=== PATIENT | female | born 1950 | race Caucasian/White ===

== ENCOUNTER 2017-12-11 10:23 | Inpatient (IN) ==
[2017-12-11] MEDS ORDERED: FentaNYL 100 MCG/2 ML INJECTION IVP ONE (10:24)
[2017-12-11] MEDS ORDERED: MIDAZOLAM 2mg/2ml INJECTION IVP ONE (10:24)
[2017-12-11] MEDS ORDERED: SALINE FLUSH 10ml SYRINGE IV ONE (10:24)
[2017-12-11] MEDS ORDERED: ESMOLOL DRIP 2,500 MG/250 ML BAG IV PRN (10:30)
[2017-12-11 11:00] VITALS: BMI 41.4
[2017-12-11] MEDS: MAGNESIUM SULFATE 1gm PREMIX 1 GM/100 ML BAG IV SCH ×2 (13:37→14:47)
[2017-12-11] MEDS: ENOXAPARIN 120 MG/0.8 ML INJECTION SQ SCH ×2 (13:46→20:10)
[2017-12-11] MEDS ORDERED: DiltiaZEM 25 MG/5 ML INJECTION IVP ONE (14:40)
[2017-12-11] MEDS: DiltiaZEM Drip 125 MG in NS 125 ML IV SCH ×2 (15:20→23:09)
[2017-12-11] MEDS ORDERED: ALBUTEROL 2.5mg/3ml (0.083%) NEB AEROSOL PRN (16:47)
--- NOTE | 2017-12-11 17:21 | Echocardiogram ---
DATE OF PROCEDURE December 11, 2017 This is a two-dimensional echo with spectral Doppler, color-flow and M-mode. It was obtained in a patient with atrial fibrillation. Left atrium is dilated. Left ventricular end-diastolic dimension is normal. Left ventricular wall thickness is increased with asymmetrical septal hypertrophy at 1.6 cm thickness. LV systolic function is at the lower limits of normal with an ejection fraction of about 50%. Right atrium is dilated. Right ventricle is normal. Aortic root dimension is normal. Mitral annulus is calcified. Mitral valve leaflets are normal with mild mitral regurgitation. Aortic valve shows mild fibrocalcific changes with no stenosis. Trace of aortic insufficiency is present. Tricuspid valve shows moderate tricuspid regurgitation with moderate pulmonary hypertension with estimated pulmonary artery systolic pressure of 48. Pulmonary valve shows no pulmonary insufficiency. There is no pericardial effusion. IMPRESSION 1. Technically difficult study. 2. LV function at the lower limits of normal with ejection fraction of about 50 %. However, all rachel were not visualized. 3. Biatrial dilation. 4. Asymmetrical septal hypertrophy. 5. Mitral annulus calcification with mild mitral regurgitation. 6. Aortic sclerosis with trace of aortic insufficiency. 7. Moderate tricuspid regurgitation with moderate pulmonary hypertension with estimated pulmonary artery systolic pressure of 48. MTDD
[2017-12-11] MEDS ORDERED: METOPROLOL 5mg/5ml INJECTION IVP ONE (17:22)
[2017-12-11] MEDS ORDERED: FLUTICASONE NASAL SPRAY 50mcg EA NOSTRIL PRN (18:42)
[2017-12-11] MEDS: ALLOPURINOL 300 MG TABLET PO SCH (20:07)
[2017-12-11] MEDS: INSULIN GLARGINE 100unit/ml INJECTION SQ SCH (20:07)
[2017-12-11] MEDS: AMLODIPINE 10 MG TABLET PO SCH (20:09)
[2017-12-11] MEDS: CYCLOBENZAPRINE 5 MG TABLET PO SCH (20:09)
[2017-12-11] MEDS: TERAZOSIN 5 MG CAPSULE PO SCH (20:10)
[2017-12-12] MEDS: LEVOTHYROXINE 200 MCG TABLET PO SCH (06:21)
[2017-12-12] MEDS: DiltiaZEM Drip 125 MG in NS 125 ML IV SCH (08:24)
[2017-12-12] MEDS ORDERED: NS IV SCH (09:30)
[2017-12-12] MEDS ORDERED: POTASSIUM CHLORIDE IV SCH (09:30)
[2017-12-12] MEDS ORDERED: LIDOCAINE IV SCH (09:30)
[2017-12-12] MEDS: ENOXAPARIN 120 MG/0.8 ML INJECTION SQ SCH (10:14)
--- NOTE | 2017-12-12 10:32 | Consult Note ---
Consult Information - Data of Consult Consult date: 12/12/17 Requesting Physician: Kenny Alvarez MD Primary Care Provider: DO Jose Antonio DO Family Provider: Jose Thayer DO - Consult Narrative Reason for consult: abnormal TSH and diabetes management History of present illness: Amaris is a 67-year-old female who was admitted yesterday under Dr. Alvarez for new onset of a-flutter. She gives a history of having a syncopal episode in the bathroom approximately 2 weeks ago. She admits she has not been taking her medications routinely over the last month or 2 as she got laid off from her job and finances are a concern. She saw her PCP on December 06 and December 10 to follow-up the syncopal episode. Her CT head was negative. EKG revealed a flutter , thus she was sent for admission. Labs reviewed from December 06, and revealed no significant abnormalities other than borderline creatinine, elevated glucose and a low magnesium at 1.4. In review of her TSH, in Jul 2017 - 0.72, December 06 - 4.46, December 10 - 2.71, Dec 11 -0.08. She reports not taking her thyroid medicine regularly for the past month or 2, but resumed it approximately a week ago. She has had no fever other than associated with sinusitis and otitis media a month ago, which has resolved. She has diarrhea "occasionally" but nothing consistent. She reports a history of usually being stable with her TSH levels. Past Medical History Medical History Atrial flutter Depression Asthma Hypothyroidism Hyperlipidemia Diabetes-chronic insulin therapy HTN (hypertension) Gout Glaucoma left eye COPD Sleep apnea-BiPAP with 2.5 L O2 GERD Surgical History: EYE SURGERY FOR GLAUCOMA: 11/2015, 02/2016, tonsillectomy and adenoidectomy-H6, cholecystectomy, right Achilles tendon repair, R tympanoplasty Family History: Family History Mother Lupus Diabetes Heart disease Father Heart disease Skin cancer Dementia Brother Skin cancer Afib H/O heart bypass surgery Maternal Grandmother Heart disease Maternal Grandfather Cancer Paternal Grandmother Dementia Paternal Grandfather Stroke Family History Updates: Reviewed - Social History Smoking status: Never smoker Substance use type: does not use Alcohol intake frequency: does not drink Household members: family (Brother) Current occupational status: retired (was laid off from her job of 42 years in August 2017) Current residence: Apartment/Private Home Social history: PCP-Dr. Thayer [place] Weaver-Dr. Pham (establishing with him next month) Review of Systems All systems PM: 10-point ROS was reviewed, no additional remarkable complaints except - Constitutional Constitutional: Present: fatigue - Cardiovascular Cardiovascular: Present: palpitations (at times) Medications Home Medications Medication Instructions Recorded Confirmed Type Albuterol Sulfate 2.5 mg AEROSOL PRN PRN 12/12/17 12/12/17 History Allopurinol [Zyloprim] 300 mg PO DAILY 12/12/17 12/12/17 History Amlodipine [Norvasc] 10 mg PO DAILY 12/12/17 12/12/17 History Chlorthalidone 25 mg PO DAILY 12/12/17 12/12/17 History Cyclobenzaprine [Flexeril] 7.5 mg PO TID 12/12/17 12/12/17 History EPINEPHrine Pen [Epipen] 0.3 mg IM O PRN 12/12/17 12/12/17 History FLUoxetine [Prozac] 20 mg PO DAILY 12/12/17 12/12/17 History Fluticasone Nasal [place] [Flonase] 1 spray EA NOSTRIL BID PRN 12/12/17 12/12/17 History Insulin Aspart [NovoLOG] 10 - 30 unit SQ TIDWM 12/12/17 12/12/17 History Insulin Degludec [Tresiba 120 unit SQ HS 12/12/17 12/12/17 History Flextouch U-200] Levothyroxine Sodium 200 mcg PO DAILY 12/12/17 12/12/17 History Meloxicam [Meloxicam] 7.5 mg PO QAM 12/12/17 12/12/17 History Metformin HCl [Metformin HCl ER] 1,000 mg PO BID 12/12/17 12/12/17 History Metoprolol Tartrate [Lopressor] 25 mg PO BIDWM 12/12/17 12/12/17 History Montelukast [Singulair] 10 mg PO DAILY 12/12/17 12/12/17 History Pravastatin [Pravachol] 40 mg PO DAILY 12/12/17 12/12/17 History Ropinirole [Requip] 2 mg PO DAILY 12/12/17 12/12/17 History Terazosin HCl 10 mg PO DAILY 12/12/17 12/12/17 History Allergies Allergy/AdvReac Type Severity Reaction Status Date / Time Penicillins Allergy Severe anaphylaxis Verified 12/12/17 11:05 ciprofloxacin [From Cipro] Allergy Unknown Verified 12/10/17 10:19 labetalol Allergy Unknown Verified 12/10/17 10:19 levofloxacin [From Levaquin] Allergy Unknown Verified 12/10/17 10:19 lisinopril Allergy Unknown Verified 12/10/17 10:19 tramadol [From Ultram] Allergy Unknown Verified 12/10/17 10:19 Exam Vital Signs: Temperature 97.6 F 12/12/17 10:00 Pulse Rate 122 H 12/12/17 10:00 Respiratory Rate 20 12/12/17 10:00 Blood Pressure 105/51 12/12/17 10:00 Pulse Oximetry 98 12/12/17 10:00 Height/Weight/BMI: Height 1.69 m Weight 93.5 kg Body Mass Index 41.4 - Constitutional Present: no acute distress, well nourished, well developed, obese - Routine HEENT Exam Head: Present: normocephalic, atraumatic - Routine Neck Exam Present: supple. Absent: lymphadenopathy - Routine Respiratory Exam Present: CTA bilaterally. Absent: wheezes - Routine Cardiovascular Exam Present: no murmur, tachycardia Comments: Sounds are regular - Routine Abdominal Exam Present: soft, normoactive bowel sounds. Absent: tenderness, distended - Routine Extremities Exam Present: no edema, normal capillary refill - Routine Skin Exam Present: dry, warm Comments: Some areas of scabbing on the right knee and lower leg and the left ankle from scratching - Routine Neurological Exam Present: alert, oriented X3, CN II-XII intact, normal speech - Routine Psychiatric Exam Present: normal affect, cooperative Results - Labs CBC & Chem 7: 12/12/17 04:20 12/12/17 04:20 Labs: Laboratory Tests 12/06/17 12/10/17 12/11/17 14:21 11:16 11:13 TSH 4.46 2.71 0.08 L - Echocardiogram Echocardiogram: Date of Exam: 12/11/17 Type of Exam(s): US echo doppler complete DATE OF PROCEDURE December 11, 2017 This is a two-dimensional echo with spectral Doppler, color-flow and M-mode. It was obtained in a patient with atrial fibrillation. Left atrium is dilated. Left ventricular end-diastolic dimension is normal. Left ventricular wall thickness is increased with asymmetrical septal hypertrophy at 1.6 cm thickness. LV systolic function is at the lower limits of normal with an ejection fraction of about 50%. Right atrium is dilated. Right ventricle is normal. Aortic root dimension is normal. Mitral annulus is calcified. Mitral valve leaflets are normal with mild mitral regurgitation. Aortic valve shows mild fibrocalcific changes with no stenosis. Trace of aortic insufficiency is present. Tricuspid valve shows moderate tricuspid regurgitation with moderate pulmonary hypertension with estimated pulmonary artery systolic pressure of 48. Pulmonary valve shows no pulmonary insufficiency. There is no pericardial effusion. IMPRESSION 1. Technically difficult study. 2. LV function at the lower limits of normal with ejection fraction of about 50 %. However, all rachel were not visualized. 3. Biatrial dilation. 4. Asymmetrical septal hypertrophy. 5. Mitral annulus calcification with mild mitral regurgitation. 6. Aortic sclerosis with trace of aortic insufficiency. 7. Moderate tricuspid regurgitation with moderate pulmonary hypertension with estimated pulmonary artery systolic pressure of 50. - ECG Data Tracing #1 Atrial flutter with rate of 129 Assessment and Plan (1) Atrial flutter Current visit: Yes Status: Acute (2) Hypothyroidism Current visit: No Status: Chronic (3) Hyperlipidemia Current visit: No Status: Chronic (4) Diabetes Current visit: No Status: Chronic (5) HTN (hypertension) Current visit: No Status: Chronic Assessment and Plan: Assessment Atrial flutter Hypomagnesemia - present on admission Hypokalemia - not present on admission Depression Asthma Hypothyroidism Hyperlipidemia Diabetes-metformin and insulin (A1c 8.1%) HTN (hypertension) Gout Glaucoma left eye COPD Sleep apnea-BiPAP with 2.5 L O2 GERD Plan Currently NPO for upcoming ALTA this afternoon. Potassium and magnesium are being replaced per cardiology team. Given her two normal TSH results within the week (both performed at [facility] lab), suspect the abnormal TSH drawn yesterday is a lab error. Other than her tachycardia, no symptoms consistent with thyrotoxicosis. Recommend outpatient follow-up with her PCP. Her home diabetic meds include metformin 500 mg 2 pills twice a day and Novolin R 30-40 units before meals and Tresiba pen 120U at hs. While hospitalized, she has been receiving Lantus 120 units at at bedtime and NovoLog 10-30 units subcutaneous before meals. Blood sugars have been stable since admission, will continue to follow and adjust as needed. (Will adjust order for metformin--pt states she was recently increased to 1000mg BID. Taking 2 - 500mg pills BID.) Hospitalist team will continue to follow patient's blood sugars throughout her stay. Thank you for the consult. Resuscitation Status: Full Code - Physician Narrative Physician: Hamilton Smith MD Narrative: Date: 12/12/17 Time: 1515 Have independently interviewed and examined pt. Chart reviewed. Case discussed with my PA. Above care plan developed with my supervision; agree with above. Presents secondary to atrial flutter with RVR. Consult initiated for her diabetes and hypothyroidism. Had TSH checked on 12/06 with reading of 4.96 and repeated on 12/10 with reading of 2.71 (both done at [facility]). Recheck this admission decreased at 0.08. Patient reports no change in her thyroid medication for ' years.' Did have insurance difficulty last fall (changed insurances) and was without medications for about 6 week. Has been faithful in taking thyroid medication. Adherent with medications. Does note chronic dizziness-worse with positional change. Had fall at home prompting evaluation in Dr Thayer's office on 12/10/17 where HR was found to be elevated. Referred to Dr Alvarez who did find aflutter with RVR - placed in OBS yesterday for treatment. Lungs: clear CV: regular AB: soft obese NT/ND MSE: awake alert appropriate Plan: Would continue with current dose of thyroid medication - uncertain why the significant discrepancy between our reading and [facility]. Would recommend rechecking TSH in about 4-6 weeks. Will add Free T3 and Free T4 for completeness. Continue with home diabetic medications, monitoring sugars. Cardiac care as per Dr Alvarez. Hospital Course Summary Disclaimer: The visit summary below is not to be considered part of the above Progress Note. Hospital Course: 12/12/17-hospitalist consultation Currently NPO for upcoming ALTA this afternoon. Potassium and magnesium are being replaced per cardiology team. Given her two normal TSH results within the week (both performed at [facility] lab), suspect the abnormal TSH drawn yesterday is a lab error. Other than her tachycardia, no symptoms consistent with thyrotoxicosis. Recommend outpatient follow-up with her PCP. Her home diabetic meds include metformin 500 mg 2 pills twice a day and Novolin R 30-40 units before meals and Tresiba pen 120U at hs. While hospitalized, she has been receiving Lantus 120 units at at bedtime and NovoLog 10-30 units subcutaneous before meals. Blood sugars have been stable since admission, will continue to follow and adjust as needed. (Will adjust order for metformin--pt states she was recently increased to 1000mg BID. Taking 2 - 500mg pills BID.) Hospitalist team will continue to follow patient's blood sugars throughout her stay. Thank you for the consult. Addendum entered and electronically signed by SAMIR Kat 12/12/17 11:19 : Patient has large umbilical hernia with erythema/yeast appearance. Order for Nystatin powder given.
[2017-12-12] MEDS ORDERED: SALINE FLUSH 10ml SYRINGE ONE (11:57)
[2017-12-12] MEDS ORDERED: FLECAINIDE 100 MG TABLET PO ONE (13:34)
[2017-12-12] MEDS: INSULIN ASPART 100unit/ml INJECTION SQ SCH ×3 (14:49→17:44)
[2017-12-12] MEDS: CYCLOBENZAPRINE 5 MG TABLET PO SCH ×3 (14:51→22:21)
[2017-12-12] MEDS: FLUoxetine 20 MG CAPSULE PO SCH (15:29)
[2017-12-12] MEDS: ROPINIROLE 2 MG TABLET PO SCH (15:29)
--- NOTE | 2017-12-12 15:31 | Transesophageal Echocardiogram ---
DATE OF PROCEDURE December 12, 2017 The patient is a pleasant 67-year-old gentleman with unknown duration of atrial fibrillation who was admitted with atrial fibrillation with rapid ventricular rate and was admitted for rate control and cardioversion. Informed consent was obtained after explaining the procedure and the potential risks to the patient who agreed to proceed with the procedure. PROCEDURE 1. Transesophageal echocardiogram. 2. DC cardioversion of atrial fibrillation to sinus rhythm. TECHNIQUE Conscious sedation was performed using Versed and fentanyl. Cetacaine spray was used for pharyngeal anesthesia. Probe was advanced into the esophagus and stomach and images were obtained in multiple planes. Left atrium is dilated. Left ventricular end-diastolic dimension is normal. Left ventricular wall thickness is normal. LV systolic function is normal with ejection fraction of about 65%. Right atrium is normal. Right ventricle is normal. Mitral valve is morphologically normal with mild mitral regurgitation. Aortic valve is a trileaflet structure with no stenosis. Mild aortic insufficiency is present. Tricuspid valve is morphologically normal with mild tricuspid regurgitation. Pulmonary valve is morphologically normal with mild pulmonary insufficiency. There is no thrombus in left atrium, left atrial appendage or left ventricle. Agitated saline was injected which showed no evidence of [id number] shunt. Descending thoracic aorta shows mild atherosclerosis. IMPRESSION 1. No intracardiac thrombus or mass. 2. Left atrial dilation. 3. Normal LV systolic function with ejection fraction of about 65%. 4. Mild mitral regurgitation. 5. Mild aortic insufficiency. 6. Mild tricuspid regurgitation. 7. Mild pulmonary insufficiency. 9. Mild atherosclerosis of the descending thoracic aorta. After reviewing the images we decided to proceed with cardioversion. Anterior- posterior Zoll pads were applied. 360 joules of energy were delivered in a synchronized manner and patient converted from atrial fibrillation to sinus rhythm. She tolerated the procedure well with no complications. IMPRESSION Successful DC cardioversion of atrial fibrillation to sinus rhythm. Will continue anticoagulation and start her on antiarrhythmics to maintain sinus. [facility]
[2017-12-12] MEDS: CHLORTHALIDONE 25 MG TABLET PO SCH (15:32)
[2017-12-12] MEDS: AMLODIPINE 10 MG TABLET PO SCH (15:32)
[2017-12-12] MEDS: MELOXICAM 7.5 MG TABLET PO SCH (15:33)
[2017-12-12] MEDS: MONTELUKAST 10 MG TABLET PO SCH (15:33)
[2017-12-12] MEDS: ALLOPURINOL 300 MG TABLET PO SCH (15:34)
[2017-12-12] MEDS: PROMETHAZINE 25 MG TABLET PO PRN ×2 (17:42→23:04)
[2017-12-12] MEDS: TERAZOSIN 5 MG CAPSULE PO SCH (22:12)
[2017-12-12] MEDS: PRAVASTATIN 40 MG TABLET PO SCH (22:12)
[2017-12-12] MEDS: FLECAINIDE 50 MG TABLET PO SCH (22:13)
[2017-12-12] MEDS: INSULIN GLARGINE 100unit/ml INJECTION SQ SCH (22:22)
[2017-12-12] MEDS: APIXABAN 5 MG TABLET PO SCH (23:03)
[2017-12-13] MEDS: LEVOTHYROXINE 200 MCG TABLET PO SCH (06:34)
[2017-12-13] MEDS: INSULIN ASPART 100unit/ml INJECTION SQ SCH ×3 (09:16→18:37)
[2017-12-13] MEDS: ALLOPURINOL 300 MG TABLET PO SCH (09:19)
[2017-12-13] MEDS: APIXABAN 5 MG TABLET PO SCH ×2 (09:19→21:10)
[2017-12-13] MEDS: FLECAINIDE 50 MG TABLET PO SCH ×2 (09:19→21:11)
[2017-12-13] MEDS: ROPINIROLE 2 MG TABLET PO SCH (09:19)
[2017-12-13] MEDS: CYCLOBENZAPRINE 5 MG TABLET PO SCH ×3 (09:19→21:10)
[2017-12-13] MEDS: FLUoxetine 20 MG CAPSULE PO SCH (09:20)
[2017-12-13] MEDS: AMLODIPINE 10 MG TABLET PO SCH (09:28)
[2017-12-13] MEDS: CHLORTHALIDONE 25 MG TABLET PO SCH (09:28)
[2017-12-13] MEDS: MELOXICAM 7.5 MG TABLET PO SCH (09:28)
[2017-12-13] MEDS: MONTELUKAST 10 MG TABLET PO SCH (09:29)
--- NOTE | 2017-12-13 09:56 | Progress Note ---
- Date 12/13/17 Subjective: Patient seen today sitting on the edge of her bed. She slept well. Had some nausea last night so didn't eat supper. No nausea this am. NO CP or SOA. She had her ALTA and successful cardioversion yesterday afternoon. Remains in NSR with heart rate averaging 70's. Overall, she currently has no complaints. Objective Vital signs: Temperature 96.3 F L 12/13/17 07:57 Pulse Rate 72 12/13/17 07:57 Respiratory Rate 24 12/13/17 07:57 Blood Pressure 124/63 12/13/17 07:57 Pulse Oximetry 95 12/13/17 07:57 Height/Weight/BMI: Height 1.69 m Weight 93.5 kg Body Mass Index 41.4 - Constitutional Present: no acute distress, well nourished, well developed, obese - Routine HEENT Exam Head: Present: normocephalic, atraumatic - Routine Respiratory Exam Present: CTA bilaterally. Absent: wheezes - Routine Cardiovascular Exam Present: RRR, murmur (slight) - Routine Abdominal Exam Present: soft, non distended, non tender - Routine Extremities Exam Present: no edema, normal capillary refill - Routine Skin Exam Present: dry, warm - Routine Neurological Exam Present: alert, oriented X3 - Routine Lymphatic Exam Lymphatic: Absent: adenopathy - Routine Psychiatric Exam Present: normal affect, cooperative Results - Labs CBC & Chem 7: 12/13/17 04:22 12/13/17 04:22 Assessment and Plan (1) Diabetes Current visit: No Status: Chronic (2) Hypothyroidism Current visit: No Status: Chronic (3) HTN (hypertension) Current visit: No Status: Chronic (4) Hyperlipidemia Current visit: No Status: Chronic (5) Atrial flutter Current visit: Yes Status: Acute Assessment and Plan: Assessment Atrial flutter - with conversion to NSR following electrical cardioversion Hypomagnesemia - present on admission - resolved Hypokalemia - not present on admission Depression Asthma Hypothyroidism Hyperlipidemia Diabetes-metformin and insulin (A1c 8.1%) HTN (hypertension) Gout Glaucoma left eye COPD Sleep apnea-BiPAP with 2.5 L O2 GERD Plan Neg ALTA and successful electrical cardioversion yesterday. Doing well. Potassium remains low at 3.0 despite receiving 60mEq TID yesterday. Replace with 40mEq now and another dose at lunch. Blood sugars are stable. Continue current regimen. Dietary consult as she would like information on sodium, portion size, etc. PT/OT consult for strengthening. DVT Prophylaxis: Eliquis Resuscitation Status: Full Code - Time spent with patient Time with patient PN: 25 minutes - Physician Narrative Physician: Hamilton Smith MD Narrative: Date: 12/13/17 Time: 1345 Have independently interviewed and examined patient. Chart reviewed. Cased discussed with Cardiology and my PA. Care plan developed with my supervision; agree with above. Doing well today. Breathing well-not congested or SOA. No chest pressure or pain. Did have episode of dizziness yesterday. Eating better today-some nausea yesterday. Lungs: decreased, no crackles/wheezes/rhonchi. Good air movement. CV: regular MSE: awake alert appropriate Plan: Continue with current DM and thyroid medications. Free T3 and T4 pending. Encourage ambulation - PT/OT consulted. Dietary to see. Replace potassium. Monitor hemoglobin - need to be mindful of potential GI blood loss with Eliquis. Hospital Course Summary Disclaimer: The visit summary below is not to be considered part of the above Progress Note. Hospital Course: 12/12/17-hospitalist consultation Currently NPO for upcoming ALTA this afternoon. Potassium and magnesium are being replaced per cardiology team. Given her two normal TSH results within the week (both performed at [facility] lab), suspect the abnormal TSH drawn yesterday is a lab error. Other than her tachycardia, no symptoms consistent with thyrotoxicosis. Recommend outpatient follow-up with her PCP. Her home diabetic meds include metformin 500 mg 2 pills twice a day and Novolin R 30-40 units before meals and Tresiba pen 120U at hs. While hospitalized, she has been receiving Lantus 120 units at at bedtime and NovoLog 10-30 units subcutaneous before meals. Blood sugars have been stable since admission, will continue to follow and adjust as needed. (Will adjust order for metformin--pt states she was recently increased to 1000mg BID. Taking 2 - 500mg pills BID.) 12/13/17 Neg ALTA and successful electrical cardioversion yesterday. Doing well. Potassium remains low at 3.0 despite receiving 60mEq TID yesterday. Replace with 40mEq now and another dose at lunch. Blood sugars are stable. Continue current regimen. Dietary consult as she would like information on sodium, portion size, etc. PT/OT consult for strengthening.
[2017-12-13] MEDS ORDERED: FALL RISK - PHARMACY CONSULT XX ONE (10:09)
--- NOTE | 2017-12-13 10:39 | Cardiology Progress Note ---
<Cookie Thomas - Last Filed: 12/13/17 16:23> Subjective Principal diagnosis: atrial flutter Interval history: Amaris is seen in follow up for atrial flutter. She underwent successful OLIVIA/ DCCV yesterday and started on antiarrhythmic therapy on Flecainide. She received IV potassium due to being NPO for afternoon procedure. She reports some nausea last evening and dizziness when she gets up to quickly. She denies chest pain, pressure or palpitations. Exam Vital signs: Temperature 96.3 F L 12/13/17 07:57 Pulse Rate 72 12/13/17 07:57 Respiratory Rate 24 12/13/17 07:57 Blood Pressure 124/63 12/13/17 07:57 Pulse Oximetry 95 12/13/17 07:57 - Constitutional no acute distress, morbidly obese, cooperative - Routine HEENT Exam Head: Present: normocephalic ENT: Present: mucous membranes moist - Routine Neck Exam Absent: JVD, carotid bruit - Routine Chest/Breast/Axilla Exam Chest wall: Absent: tenderness - Routine Respiratory Exam Present: CTA bilaterally. Absent: rales, wheezes - Routine Cardiovascular Exam Present: no murmur. Absent: JVD - Routine Abdominal Exam Present: soft, normoactive bowel sounds - Routine Extremities Exam Present: no edema - Routine Skin Exam Present: intact, dry, warm - Routine Neurological Exam Present: alert, oriented X3 - Routine Psychiatric Exam Present: normal affect, normal thought process - Additional findings Additional findings: Albuterol Sulfate (Proventil Neb (0.083%)) 2.5 mg AEROSOL RTQID PRN Allopurinol (Zyloprim) 300 mg PO DAILY [facility] Last Admin: 12/13/17 09:19 Dose: 300 mg Amlodipine Besylate (Norvasc) 10 mg PO DAILY [facility] Last Admin: 12/13/17 09:28 Dose: 10 mg Apixaban (Eliquis) 5 mg PO BID [facility] Last Admin: 12/13/17 09:19 Dose: 5 mg Chlorthalidone (Hygroton) 25 mg PO WB [facility] Last Admin: 12/13/17 09:28 Dose: 25 mg Cyclobenzaprine HCl (Flexeril) 7.5 mg PO TID [facility] Last Admin: 12/13/17 09:19 Dose: 7.5 mg Flecainide Acetate (Tambocor) 50 mg PO BID [facility] Last Admin: 12/13/17 09:19 Dose: 50 mg Fluoxetine HCl (Prozac) 20 mg PO DAILY [facility] Last Admin: 12/13/17 09:20 Dose: 20 mg Fluticasone Propionate (Flonase) 1 spray EA NOSTRIL BID PRN PRN Reason: allergy symptoms Esmolol HCl (Brevibloc Drip) 2,500 mg in 250 mls @ 35.49 mls/hr IV .Q7H3M PRN; 50 MCG/KG/MIN PRN Reason: Protocol Last Titration: 12/11/17 15:20 Dose: 0 mcg/kg/min, 0 mls/hr Insulin Aspart (Novolog) 10 - 30 unit SQ 0730,1130,1700 [facility] Last Admin: 12/13/17 09:16 Dose: 10 unit Insulin Glargine (Lantus) 120 unit SQ HS [facility] Last Admin: 12/12/17 22:22 Dose: 120 unit Levothyroxine Sodium (Synthroid) 200 mcg PO ACB [facility] Last Admin: 12/13/17 06:34 Dose: 200 mcg Meloxicam (Mobic) 7.5 mg PO WB [facility] Last Admin: 12/13/17 09:28 Dose: 7.5 mg Metformin HCl (Glucophage Xr) 1,000 mg PO BIDWM [facility] Last Admin: 12/13/17 09:18 Dose: 1,000 mg Metoprolol Tartrate (Lopressor) 25 mg PO BIDBS [facility] Last Admin: 12/13/17 09:18 Dose: 25 mg Montelukast Sodium (Singulair) 10 mg PO DAILY [facility] Last Admin: 12/13/17 09:29 Dose: 10 mg Nystatin (Mycostatin) 1 applic TP TID [facility] Last Admin: 12/13/17 09:29 Dose: 1 applic Potassium Chloride (K-Dur 20 Meq Tablet) 40 meq PO O ONE Stop: 12/13/17 12:01 Pravastatin Sodium (Pravachol) 40 mg PO HS [facility] Last Admin: 12/12/17 22:12 Dose: 40 mg Promethazine HCl (Phenergan Tab) 25 mg PO Q6HR PRN Last Admin: 12/12/17 23:04 Dose: 25 mg Ropinirole HCl (Requip) 2 mg PO WB [facility] Last Admin: 12/13/17 09:19 Dose: 2 mg Terazosin HCl (Hytrin) 10 mg PO HS [facility] Last Admin: 12/12/17 22:12 Dose: 10 mg Results 12/13/17 04:22 12/13/17 04:22 CBC 12/13/17 Range/Units 04:22 WBC 6.9 (4.5-11.0) T/MM3 RBC 3.87 L (4.00-5.20) M/MM3 Hgb 11.5 L D (12-16) GM/DL Hct 34.4 L D (36-46) % Plt Count 222 (130-400) T/MM3 Comprehensive Metabolic Panel 12/13/17 Range/Units 04:22 Sodium 139 (134-144) MEQ/L Potassium 3.0 L (3.6-5) MEQ/L Chloride 103 (98-107) MEQ/L Carbon Dioxide 27 (22-30) MEQ/L BUN 30.0 H (7-17) MG/DL Creatinine 1.0 D (0.7-1.2) MG/DL Glucose 126 H (65-110) MG/DL Calcium 8.6 (8.4-10.2) MG/DL Intake and Output 12/12/17 12/13/17 12/13/17 22:59 06:59 14:59 Intake Total 700 / 700 20 / 20 Balance 700 / 700 20 / 20 Intake: Oral 700 / 700 20 / 20 Other: Urine Color Yellow Urine Odor Strong Size of Bowel Movement Small # Voids 1 # Bowel Movements 1 - Imaging and Cardiology Imaging & Cardiology Narrative: Date of Exam: 12/12/17 Type of Exam(s): US olivia w/ doppler DATE OF PROCEDURE December 12, 2017 The patient is a pleasant 67-year-old gentleman with unknown duration of atrial fibrillation who was admitted with atrial fibrillation with rapid ventricular rate and was admitted for rate control and cardioversion. Informed consent was obtained after explaining the procedure and the potential risks to the patient who agreed to proceed with the procedure. PROCEDURE 1. Transesophageal echocardiogram. 2. DC cardioversion of atrial fibrillation to sinus rhythm. TECHNIQUE Conscious sedation was performed using Versed and fentanyl. Cetacaine spray was used for pharyngeal anesthesia. Probe was advanced into the esophagus and stomach and images were obtained in multiple planes. Left atrium is dilated. Left ventricular end-diastolic dimension is normal. Left ventricular wall thickness is normal. LV systolic function is normal with ejection fraction of about 65%. Right atrium is normal. Right ventricle is normal. Mitral valve is morphologically normal with mild mitral regurgitation. Aortic valve is a trileaflet structure with no stenosis. Mild aortic insufficiency is present. Tricuspid valve is morphologically normal with mild tricuspid regurgitation. Pulmonary valve is morphologically normal with mild pulmonary insufficiency. There is no thrombus in left atrium, left atrial appendage or left ventricle. Agitated saline was injected which showed no evidence of [id number] shunt. Descending thoracic aorta shows mild atherosclerosis. IMPRESSION 1. No intracardiac thrombus or mass. 2. Left atrial dilation. 3. Normal LV systolic function with ejection fraction of about 65%. 4. Mild mitral regurgitation. 5. Mild aortic insufficiency. 6. Mild tricuspid regurgitation. 7. Mild pulmonary insufficiency. 9. Mild atherosclerosis of the descending thoracic aorta. After reviewing the images we decided to proceed with cardioversion. Anterior- posterior Zoll pads were applied. 360 joules of energy were delivered in a synchronized manner and patient converted from atrial fibrillation to sinus rhythm. She tolerated the procedure well with no complications. IMPRESSION Successful DC cardioversion of atrial fibrillation to sinus rhythm. Will continue anticoagulation and start her on antiarrhythmics to maintain sinus. Date of Exam: 12/11/17 Type of Exam(s): US echo doppler complete DATE OF PROCEDURE December 11, 2017 This is a two-dimensional echo with spectral Doppler, color-flow and M-mode. It was obtained in a patient with atrial fibrillation. Left atrium is dilated. Left ventricular end-diastolic dimension is normal. Left ventricular wall thickness is increased with asymmetrical septal hypertrophy at 1.6 cm thickness. LV systolic function is at the lower limits of normal with an ejection fraction of about 50%. Right atrium is dilated. Right ventricle is normal. Aortic root dimension is normal. Mitral annulus is calcified. Mitral valve leaflets are normal with mild mitral regurgitation. Aortic valve shows mild fibrocalcific changes with no stenosis. Trace of aortic insufficiency is present. Tricuspid valve shows moderate tricuspid regurgitation with moderate pulmonary hypertension with estimated pulmonary artery systolic pressure of 48. Pulmonary valve shows no pulmonary insufficiency. There is no pericardial effusion. IMPRESSION 1. Technically difficult study. 2. LV function at the lower limits of normal with ejection fraction of about 50 %. However, all rachel were not visualized. 3. Biatrial dilation. 4. Asymmetrical septal hypertrophy. 5. Mitral annulus calcification with mild mitral regurgitation. 6. Aortic sclerosis with trace of aortic insufficiency. 7. Moderate tricuspid regurgitation with moderate pulmonary hypertension with estimated pulmonary artery systolic pressure of 50. Assessment and Plan - Assessment and Plan (1) HTN (hypertension) Status: Chronic Continue home Amlodipine, Metoprolol and Chlorthalidone (2) Hyperlipidemia Status: Chronic Continue home Pravastatin (3) Hypothyroidism Status: Chronic Appreciate Hospitalist assistance. Thank you Dr. East (4) Diabetes Status: Chronic Appreciate Hospitalist assistance. Thank you Dr. East (5) Asthma Status: Chronic Appreciate Hospitalist assistance. Thank you Dr. East (6) Atrial flutter Status: Acute New onset - underwent successful OLIVIA/ DCCV yesterday - antiarrhythmic therapy on Flecainide. - Monitor cardiac telemetry for ventricular arrhythmias - Monitor Magnesium and Potassium - Repeat EKG to measure QT - Assessment and Plan New onset A Flutter - underwent successful OLIVIA/ DCCV yesterday - antiarrhythmic therapy on Flecainide. - Monitor cardiac telemetry for ventricular arrhythmias - Monitor Magnesium and Potassium (3.0 today) replaced by hospitalist - Repeat EKG to measure QT - Prontonix 40mg po BID ac meals (hgb 11.5 today from 13.1) Hospital Course Summary Disclaimer: The visit summary below is not to be considered part of the above Progress Note. Hospital Course: 12/12/17-hospitalist consultation Currently NPO for upcoming OLIVIA this afternoon. Potassium and magnesium are being replaced per cardiology team. Given her two normal TSH results within the week (both performed at [facility] lab), suspect the abnormal TSH drawn yesterday is a lab error. Other than her tachycardia, no symptoms consistent with thyrotoxicosis. Recommend outpatient follow-up with her PCP. Her home diabetic meds include metformin 500 mg 2 pills twice a day and Novolin R 30-40 units before meals and Tresiba pen 120U at hs. While hospitalized, she has been receiving Lantus 120 units at at bedtime and NovoLog 10-30 units subcutaneous before meals. Blood sugars have been stable since admission, will continue to follow and adjust as needed. (Will adjust order for metformin--pt states she was recently increased to 1000mg BID. Taking 2 - 500mg pills BID.) 12/13/17 Neg OLIVIA and successful electrical cardioversion yesterday. Doing well. Potassium remains low at 3.0 despite receiving 60mEq TID yesterday. Replace with 40mEq now and another dose at lunch. Blood sugars are stable. Continue current regimen. Dietary consult as she would like information on sodium, portion size, etc. PT/OT consult for strengthening. <Kenny Alvarez - Last Filed: 12/18/17 07:54> Exam Vital signs: Temperature 96.2 F L 12/14/17 08:00 Pulse Rate 76 12/14/17 16:00 Respiratory Rate 18 12/14/17 08:00 Blood Pressure 143/67 H 12/14/17 12:00 Pulse Oximetry 96 12/14/17 12:00 Results 12/14/17 04:20 12/14/17 04:20 Assessment and Plan - Assessment and Plan (1) HTN (hypertension) Status: Chronic (2) Diabetes Status: Chronic (3) Hyperlipidemia Status: Chronic (4) Hypothyroidism Status: Chronic (5) Asthma Status: Chronic (6) Atrial flutter Status: Acute - Attestation Attestation Narrative: 12/18/17 07:54 Recommendation After examining the patient I agree with the above assessment. I am involved in the formulation of the patient's plan of care. Hospital Course Summary Disclaimer: The visit summary below is not to be considered part of the above Progress Note.
[2017-12-13] MEDS: PANTOPRAZOLE 40 MG TABLET PO SCH (16:52)
[2017-12-13] MEDS ORDERED: INSULIN GLARGINE 100unit/ml INJECTION SQ ONE (21:00)
[2017-12-13] MEDS: INSULIN GLARGINE 100unit/ml INJECTION SQ SCH (21:10)
[2017-12-13] MEDS: PRAVASTATIN 40 MG TABLET PO SCH (21:11)
[2017-12-13] MEDS: TERAZOSIN 5 MG CAPSULE PO SCH (21:11)
[2017-12-14] MEDS: PANTOPRAZOLE 40 MG TABLET PO SCH ×2 (06:29→17:43)
[2017-12-14] MEDS: LEVOTHYROXINE 200 MCG TABLET PO SCH (06:30)
[2017-12-14] MEDS: INSULIN ASPART 100unit/ml INJECTION SQ SCH ×2 (08:23→11:52)
[2017-12-14 08:55] VITALS: RESP 18; TEMP 96.2
[2017-12-14] MEDS: ALLOPURINOL 300 MG TABLET PO SCH (08:56)
[2017-12-14] MEDS: APIXABAN 5 MG TABLET PO SCH (08:56)
[2017-12-14] MEDS: FLUoxetine 20 MG CAPSULE PO SCH (08:56)
[2017-12-14] MEDS: AMLODIPINE 10 MG TABLET PO SCH (08:56)
[2017-12-14] MEDS: MELOXICAM 7.5 MG TABLET PO SCH (08:57)
[2017-12-14] MEDS: ROPINIROLE 2 MG TABLET PO SCH (08:57)
[2017-12-14] MEDS: FLECAINIDE 50 MG TABLET PO SCH (08:57)
[2017-12-14] MEDS: CHLORTHALIDONE 25 MG TABLET PO SCH (08:57)
[2017-12-14] MEDS: CYCLOBENZAPRINE 5 MG TABLET PO SCH ×2 (08:57→15:40)
[2017-12-14] MEDS: MONTELUKAST 10 MG TABLET PO SCH (08:58)
[2017-12-14] MEDS: PROMETHAZINE 25 MG TABLET PO PRN (10:10)
--- NOTE | 2017-12-14 11:48 | Progress Note ---
- Date 12/14/17 Subjective: Amaris is seen today in follow up for her recent a-flutter. She underwent a ALTA with cardioversion on 12/11/17 which was successful [address] Dr[address] Alvarez. She complains today of nausea and increased dizziness with eating. She reports that it feels like the food is just sitting in her stomach. She denies any fevers, chills, chest pain, shortness of breath, abdominal pain, vomiting or diarrhea. Urinary output is good and bowels are moving. Labs this morning revealed stable WBC at 8.6 with persistent anemia with hemoglobin at 11.7. BMP revealed persistent hypokalemia at 3.1. Renal function is stable. Hypoglycemia noted this morning at 53 which improved with juice and overall well controlled. Magnesium stable at 1.9. She was seen and evaluated by PT and OT, both of whom did not recommend any additional treatment or intervention. Objective Vital signs: Temperature 96.2 F L 12/14/17 08:00 Pulse Rate 82 12/14/17 08:00 Respiratory Rate 18 12/14/17 08:00 Blood Pressure 148/71 H 12/14/17 08:00 Pulse Oximetry 99 12/14/17 08:00 Rhythm: Normal Sinus Rhythm Height/Weight/BMI: Height 5 ft 6.5 in Weight 266 lb 12.149 oz Body Mass Index 41.4 Comments: resting in bed; sleeping and awakens easily. - Constitutional Present: no acute distress, well nourished, well developed, morbidly obese, cooperative - Routine HEENT Exam Head: Present: normocephalic, atraumatic Eye: Present: PERRL. Absent: conjunctival icterus ENT: Present: mucous membranes dry - Routine Respiratory Exam Present: decreased breath sounds, CTA bilaterally Comments: no conversational dyspnea or distress; no cough. - Routine Cardiovascular Exam Present: RRR, S1, S2 - Routine Abdominal Exam Present: soft, normoactive bowel sounds, non distended, non tender. Absent: distended, rebound, guarding Comments: obese; umbilical hernia noted which is soft and easily reduced; some skin irritation noted to umbilical hernia which nursing has been applying cream. - Routine Extremities Exam Present: edema (trace), non tender, full ROM, pulses intact - Routine Back/Spine/Pelvis Exam Back/Spine: Present: full ROM. Absent: vertebral tenderness - Routine Musculoskeletal Exam Musculoskeletal: Present: moving extremities well - Routine Skin Exam Present: dry, warm. Absent: jaundice Comments: afebrile. - Routine Neurological Exam Present: alert, oriented X3, CN II-XII intact, moving all extremities. Absent: facial asymmetry - Routine Lymphatic Exam Lymphatic: Absent: lymphedema - Routine Psychiatric Exam Present: cooperative Results - Labs CBC & Chem 7: 12/14/17 04:20 12/14/17 04:20 Assessment and Plan (1) Hypothyroidism Current visit: No Status: Chronic (2) Diabetes Current visit: No Status: Chronic (3) HTN (hypertension) Current visit: No Status: Chronic (4) Hyperlipidemia Current visit: No Status: Chronic (5) Atrial flutter Current visit: Yes Status: Acute Assessment and Plan: Assessment Atrial flutter - with conversion to NSR following electrical cardioversion Hypomagnesemia - present on admission - resolved Hypokalemia - not present on admission Depression Asthma Hypothyroidism Hyperlipidemia Diabetes-metformin and insulin (A1c 8.1%) HTN (hypertension) Gout Glaucoma left eye COPD Sleep apnea-BiPAP with 2.5 L O2 GERD Plan - 12/14/17 Amaris complains of nausea and dizziness with eating. She admits to a history of chronic vertigo. She feels like her food is just sitting in her stomach. Bowels are moving and no abdominal pain, vomiting or diarrhea. Persistent hypokalemia with potassium at 3.1. Will discuss treatment plans with Dr. Alvarez. Continue to monitor closely on telemetry. Currently Sinus rhythm s/p cardioversion on 12/11/[address] Alvarez. Blood sugar was low this AM at 53. Patient's oral intake has decreased due to her nausea. Lantus dose was decreased to 80 units on 12/13/17 due to decreased blood sugars. Her home diabetes medications include - Metformin 1000mg BID, Novolin R 30 - 40 units before meals and Tresiba pen 120 units. Since her admission, she has been on metformin 1000mg BID, Novolog 10-30 units with meals and Lantus 120 units HS. Will continue home metformin. Will change scheduled novolog to sliding scale PRN and decrease the Lantus to 100 units HS. Continue to monitor blood sugars closely and monitor closely for hypoglycemia. She was seen and evaluated by both PT and OT who did not recommend any additional therapies at this time. Will recheck CBC, BMP and Mg in AM to monitor blood counts, electrolytes and renal function closely. DVT Prophylaxis: SCD's GI Prophylaxis: Protonix Resuscitation Status: Full Code - Time spent with patient Time with patient PN: 35 minutes - Physician Narrative Physician: Hamilton Smith MD Narrative: Date: 12/14/17 Time: 1640 Have independently interviewed and examined pt. Chart reviewed. Case discussed with Cardiology and my PA. Above care plan developed with my supervision; agree with above. Feeling better overall. Still notes episodes of dizziness. Breathing well. Chest feels normal. Appetite variable. No nausea. Blood sugars low this am. Moving more-up more today. Lungs: decreased breath sounds bilaterally. CV: regular MSE: awake alert appropriate Plan: Medically doing well. With low am sugar, could decrease long acting insulin at night. Need to be mindful of changes as appetite variable. Free T3 and T4 normal-would recommend continuing thyroid dose. Patient appears to be having some issues obtaining long acting insulin with her insurance; do not feel this is something I would be able to address. Medically stable for discharge to home. Hospital Course Summary Disclaimer: The visit summary below is not to be considered part of the above Progress Note. Hospital Course: 12/12/17-hospitalist consultation Currently NPO for upcoming ALTA this afternoon. Potassium and magnesium are being replaced per cardiology team. Given her two normal TSH results within the week (both performed at [facility] lab), suspect the abnormal TSH drawn yesterday is a lab error. Other than her tachycardia, no symptoms consistent with thyrotoxicosis. Recommend outpatient follow-up with her PCP. Her home diabetic meds include metformin 500 mg 2 pills twice a day and Novolin R 30-40 units before meals and Tresiba pen 120U at hs. While hospitalized, she has been receiving Lantus 120 units at at bedtime and NovoLog 10-30 units subcutaneous before meals. Blood sugars have been stable since admission, will continue to follow and adjust as needed. (Will adjust order for metformin--pt states she was recently increased to 1000mg BID. Taking 2 - 500mg pills BID.) 12/13/17 Neg ALTA and successful electrical cardioversion yesterday. Doing well. Potassium remains low at 3.0 despite receiving 60mEq TID yesterday. Replace with 40mEq now and another dose at lunch. Blood sugars are stable. Continue current regimen. Dietary consult as she would like information on sodium, portion size, etc. PT/OT consult for strengthening. Plan - 12/14/17 Amaris complains of nausea and dizziness with eating. She admits to a history of chronic vertigo. She feels like her food is just sitting in her stomach. Bowels are moving and no abdominal pain, vomiting or diarrhea. Persistent hypokalemia with potassium at 3.1. Will discuss treatment plans with Dr. Alvarez. Continue to monitor closely on telemetry. Currently Sinus rhythm s/p cardioversion on 12/11/[address] Alvarez. Blood sugar was low this AM at 53. Patient's oral intake has decreased due to her nausea. Lantus dose was decreased to 80 units on 12/13/17 due to decreased blood sugars. Her home diabetes medications include - Metformin 1000mg BID, Novolin R 30 - 40 units before meals and Tresiba pen 120 units. Since her admission, she has been on metformin 1000mg BID, Novolog 10-30 units with meals and Lantus 120 units HS. Will continue home metformin. Will change scheduled novolog to sliding scale PRN and decrease the Lantus to 100 units HS. Continue to monitor blood sugars closely and monitor closely for hypoglycemia. She was seen and evaluated by both PT and OT who did not recommend any additional therapies at this time. Will recheck CBC, BMP and Mg in AM to monitor blood counts, electrolytes and renal function closely.
[2017-12-14] MEDS ORDERED: INSULIN ASPART 100unit/ml INJECTION SQ PRN (12:00)
[2017-12-14 12:45] VITALS: BP 143/67; O2SAT 96
--- NOTE | 2017-12-14 16:16 | Discharge Summary ---
<Cookie Thomas - Last Filed: 12/14/17 16:13> Discharge Information Date of admission: 12/12/17 17:04 Anticipated date of discharge: 12/14/17 Attending Physician: Kenny Alvarez MD Primary care physician: Jose Thayer DO Consults: 12/12/17 08:51 Physician Consult [CONS] Routine Consulting Provider: Hamilton Smith Reason For Exam: thyroid and diabetes management Ordering Provider has Notified Marketing Project Lead: Yes Comment: spoke to Brenda 12/13/17 09:26 Dietary Consult [CONS] Routine Comment: Reason For Exam: cardiac/diabetic diet-portion control,sodium, etc. - Discharge Diagnosis (1) HTN (hypertension) Status: Chronic (2) Hyperlipidemia Status: Chronic (3) Hypothyroidism Status: Chronic (4) Diabetes Status: Chronic (5) Asthma Status: Chronic (6) Atrial flutter Status: Acute atrial flutter - Laboratory Labs: 12/14/17 04:20 12/14/17 04:20 History of Present Illness HPI: Amaris is a 67-year-old female who was is new to Dr. Alvarez with new onset Atrial flutter. She gives a history of having a syncopal episode in the bathroom approximately 2 weeks ago. She admits she has not been taking her medications routinely over the last month or 2 as she got laid off from her job and finances are a concern. She saw her PCP on December 06 and December 10 to follow-up the syncopal episode. Her CT head was negative. EKG revealed a flutter , thus she was sent for admission. Labs reviewed from December 06, and revealed no significant abnormalities other than borderline creatinine, elevated glucose and a low magnesium at 1.4. In review of her TSH, in Jul 2017 - 0.72, December 06 - 4.46, December 10 - 2.71, Dec 11 -0.08. She reports not taking her thyroid medicine regularly for the past month or 2, but resumed it approximately a week ago. She has had no fever other than associated with sinusitis and otitis media a month ago, which has resolved. She has diarrhea "occasionally" but nothing consistent. She reports a history of usually being stable with her TSH levels. 12/14/17 16:15 Hospital Course This is a general summary of the patient's hospital course. For more details refer to the complete medical record. Hospital course: New onset A Flutter - underwent successful OLIVIA/ DCCV yesterday - antiarrhythmic therapy on Flecainide. - Monitor cardiac telemetry for ventricular arrhythmias - Monitor Magnesium and Potassium (3.0 today) replaced by hospitalist - Repeat EKG to measure QT - Prontonix 40mg po BID ac meals (hgb 11.5 today from 13.1) Time spent with patient: 25 - 35 minutes Resuscitation Status: Full Code Exam Vital signs: Temperature 96.2 F L 12/14/17 08:00 Pulse Rate 75 12/14/17 12:00 Respiratory Rate 18 12/14/17 08:00 Blood Pressure 143/67 H 12/14/17 12:00 Pulse Oximetry 96 12/14/17 12:00 - Constitutional no acute distress, morbidly obese, cooperative - Routine HEENT Exam Head: Present: normocephalic ENT: Present: mucous membranes moist - Routine Neck Exam Absent: JVD, carotid bruit - Routine Chest/Breast/Axilla Exam Chest wall: Absent: tenderness - Routine Respiratory Exam Present: decreased breath sounds, CTA bilaterally - Routine Cardiovascular Exam Present: RRR, no murmur - Routine Abdominal Exam Present: soft, normoactive bowel sounds - Routine Extremities Exam Present: edema - Routine Skin Exam Present: intact, dry, warm - Routine Neurological Exam Present: alert, oriented X3 - Routine Psychiatric Exam Present: normal affect, normal thought process Results 12/14/17 04:20 12/14/17 04:20 CBC 12/14/17 Range/Units 04:20 WBC 8.6 (4.5-11.0) T/MM3 RBC 3.92 L (4.00-5.20) M/MM3 Hgb 11.7 L (12-16) GM/DL Hct 34.9 L (36-46) % Plt Count 219 (130-400) T/MM3 Comprehensive Metabolic Panel 12/14/17 Range/Units 04:20 Sodium 140 (134-144) MEQ/L Potassium 3.1 L (3.6-5) MEQ/L Chloride 105 (98-107) MEQ/L Carbon Dioxide 27 (22-30) MEQ/L BUN 27.0 H (7-17) MG/DL Creatinine 1.0 (0.7-1.2) MG/DL Glucose 53 L (65-110) MG/DL Calcium 9.0 (8.4-10.2) MG/DL Intake and Output 12/14/17 12/14/17 12/14/17 06:59 14:59 22:59 Intake Total 400 / 400 950 / 950 Balance 400 / 400 950 / 950 Intake: IV 0 / 0 Esmolol Drip 2,500 mg In 250 ml 0 / 0 @ 50 MCG/KG/MIN 35.49 mls/hr IV .Q7H3M PRN Rx#:[id number] Oral 400 / 400 950 / 950 Other: Urine Appearance Clear Urine Color Pale Yellow # Voids 1 Weight 266 lb 12.149 oz Patient Weight 12/15/17 06:59 Weight 266 lb 12.149 oz - Imaging and Cardiology Imaging & Cardiology Narrative: Date of Exam: 12/11/17 Type of Exam(s): US echo doppler complete DATE OF PROCEDURE December 11, 2017 This is a two-dimensional echo with spectral Doppler, color-flow and M-mode. It was obtained in a patient with atrial fibrillation. Left atrium is dilated. Left ventricular end-diastolic dimension is normal. Left ventricular wall thickness is increased with asymmetrical septal hypertrophy at 1.6 cm thickness. LV systolic function is at the lower limits of normal with an ejection fraction of about 50%. Right atrium is dilated. Right ventricle is normal. Aortic root dimension is normal. Mitral annulus is calcified. Mitral valve leaflets are normal with mild mitral regurgitation. Aortic valve shows mild fibrocalcific changes with no stenosis. Trace of aortic insufficiency is present. Tricuspid valve shows moderate tricuspid regurgitation with moderate pulmonary hypertension with estimated pulmonary artery systolic pressure of 48. Pulmonary valve shows no pulmonary insufficiency. There is no pericardial effusion. IMPRESSION 1. Technically difficult study. 2. LV function at the lower limits of normal with ejection fraction of about 50 %. However, all rachel were not visualized. 3. Biatrial dilation. 4. Asymmetrical septal hypertrophy. 5. Mitral annulus calcification with mild mitral regurgitation. 6. Aortic sclerosis with trace of aortic insufficiency. 7. Moderate tricuspid regurgitation with moderate pulmonary hypertension with estimated pulmonary artery systolic pressure of 50. 12/14/17 16:13 12/14/17 16:14 Date of Exam: 12/12/17 Type of Exam(s): US olivia w/ doppler DATE OF PROCEDURE December 12, 2017 The patient is a pleasant 67-year-old gentleman with unknown duration of atrial fibrillation who was admitted with atrial fibrillation with rapid ventricular rate and was admitted for rate control and cardioversion. Informed consent was obtained after explaining the procedure and the potential risks to the patient who agreed to proceed with the procedure. PROCEDURE 1. Transesophageal echocardiogram. 2. DC cardioversion of atrial fibrillation to sinus rhythm. TECHNIQUE Conscious sedation was performed using Versed and fentanyl. Cetacaine spray was used for pharyngeal anesthesia. Probe was advanced into the esophagus and stomach and images were obtained in multiple planes. Left atrium is dilated. Left ventricular end-diastolic dimension is normal. Left ventricular wall thickness is normal. LV systolic function is normal with ejection fraction of about 65%. Right atrium is normal. Right ventricle is normal. Mitral valve is morphologically normal with mild mitral regurgitation. Aortic valve is a trileaflet structure with no stenosis. Mild aortic insufficiency is present. Tricuspid valve is morphologically normal with mild tricuspid regurgitation. Pulmonary valve is morphologically normal with mild pulmonary insufficiency. There is no thrombus in left atrium, left atrial appendage or left ventricle. Agitated saline was injected which showed no evidence of [id number] shunt. Descending thoracic aorta shows mild atherosclerosis. IMPRESSION 1. No intracardiac thrombus or mass. 2. Left atrial dilation. 3. Normal LV systolic function with ejection fraction of about 65%. 4. Mild mitral regurgitation. 5. Mild aortic insufficiency. 6. Mild tricuspid regurgitation. 7. Mild pulmonary insufficiency. 9. Mild atherosclerosis of the descending thoracic aorta. After reviewing the images we decided to proceed with cardioversion. Anterior- posterior Zoll pads were applied. 360 joules of energy were delivered in a synchronized manner and patient converted from atrial fibrillation to sinus rhythm. She tolerated the procedure well with no complications. IMPRESSION Successful DC cardioversion of atrial fibrillation to sinus rhythm. Will continue anticoagulation and start her on antiarrhythmics to maintain sinus. - EKG Interpretation EKG: sinus rhythm Discharge Plan - Med Rec/Dispo Referrals/Follow Up: Kenny Alvarez MD [Physician] - 01/01/18 9:10 am Marlee Instructions: Atrial Flutter (GEN) Prescriptions: New Apixaban [Eliquis] 5 mg PO BID #60 tab Flecainide [Tambocor] 50 mg PO BID #30 tab Potassium Chloride [K-DUR 20 mEq Tablet] 40 meq PO TIDWM #30 tab Continue Albuterol Sulfate 2.5 mg AEROSOL PRN PRN PRN Reason: Shortness Of Air/Wheezing Allopurinol [Zyloprim] 300 mg PO DAILY Insulin Degludec [Tresiba Flextouch U-200] 120 unit SQ HS FLUoxetine [Prozac] 20 mg PO DAILY Ropinirole [Requip] 2 mg PO DAILY Pravastatin [Pravachol] 40 mg PO DAILY Amlodipine [Norvasc] 10 mg PO DAILY Metoprolol Tartrate [Lopressor] 25 mg PO BIDWM Levothyroxine Sodium 200 mcg PO DAILY Metformin HCl [Metformin HCl ER] 1,000 mg PO BID Fluticasone Nasal [place] [Flonase] 1 spray EA NOSTRIL BID PRN PRN Reason: Prn Orders Cyclobenzaprine [Flexeril] 7.5 mg PO TID Chlorthalidone 25 mg PO DAILY Terazosin HCl 10 mg PO DAILY EPINEPHrine Pen [Epipen] 0.3 mg IM O PRN PRN Reason: Prn Orders Montelukast [Singulair] 10 mg PO DAILY Insulin Aspart [NovoLOG] 10 - 30 unit SQ TIDWM No Action Cozaar (losartan) 100 mg tablet 100 mg PO DAILY Asmanex Twisthaler (Mometasone 110 mcg (30 doses) )breath activated powder inhaler 2 puff INH BID Spiriva Respimat (tiotropium bromide) 2.5 mcg/actuation, inhalation 2 puff INH DAILY cyclosporine 0.05 % eye drops 1 drop EACH EYE Q12H Mobic (Meloxicam) 7.5 mg tablet 15 mg PO QAM tab Combigan (brimonidine 0.2 %-timolol 0.5 %) eye drops 1 drop EACH EYE Q12H - Disposition 01 Discharged Home, Self-Care - Dismissal Complete Discharge Instructions are:: Complete <Kenny Alvarez - Last Filed: 12/18/17 08:15> Discharge Information Date of admission: 12/12/17 17:04 Attending Physician: Kenny Alvarez MD Primary care physician: Jose Thayer DO Consults: 12/12/17 08:51 Physician Consult [CONS] Routine Consulting Provider: Hamilton Smith Reason For Exam: thyroid and diabetes management Ordering Provider has Notified Marketing Project Lead: Yes Comment: spoke to Brenda 12/13/17 09:26 Dietary Consult [CONS] Routine Comment: Reason For Exam: cardiac/diabetic diet-portion control,sodium, etc. - Discharge Diagnosis (1) HTN (hypertension) Status: Chronic (2) Diabetes Status: Chronic (3) Hyperlipidemia Status: Chronic (4) Hypothyroidism Status: Chronic (5) Asthma Status: Chronic (6) Atrial flutter Status: Acute - Laboratory Labs: 12/14/17 04:20 12/14/17 04:20 Hospital Course This is a general summary of the patient's hospital course. For more details refer to the complete medical record. Exam Vital signs: Temperature 96.2 F L 12/14/17 08:00 Pulse Rate 76 12/14/17 16:00 Respiratory Rate 18 12/14/17 08:00 Blood Pressure 143/67 H 12/14/17 12:00 Pulse Oximetry 96 12/14/17 12:00 Results 12/14/17 04:20 12/14/17 04:20 Attestation Narriative - Attestation Attestation Narrative: 12/18/17 08:15 Recommendation After examining the patient I agree with the above assessment. I am involved in the formulation of the patient's plan of care.
[2017-12-14 16:24] VITALS: PULSE 76
[2017-12-14] MEDS ORDERED: INSULIN GLARGINE 100unit/ml INJECTION SQ SCH (21:00)
== END 2017-12-14 18:10 | disposition home or self-care (01) | DRG 310 ==
LOC: MED → CCU 10:31 → MED 12-12 16:48
PROVIDERS: ADMIT Internal Medicine Cardiovascular Disease; ATTEND Internal Medicine Cardiovascular Disease

== ENCOUNTER 2018-01-25 12:19 | Inpatient (IN) ==
--- NOTE | 2018-01-25 12:45 | Emergency Department Report ---
SOB HPI - General Chief Complaint: Shortness of Breath/Dyspnea <Aman Castano Q - 02/14/18 19:33 > Stated Complaint: soa <Aman Castano Q - 02/14/18 19:33> Time Seen by Provider: 01/25/18 12:45 <Aman Castano Q - 02/14/18 19:33> Source: patient <Ebla Baum A - 01/25/18 13:04> Mode of arrival: ambulatory <Elba Baum Hamilton - 01/25/18 13:04> - History of Present Illness 67-year-old female sent to ER by Dr. Thayer for evaluation of exertional dyspnea. Patient was in Dr. Thayer's office this morning and became very short of breath just walking in from her car and also walking to exam room. O2 saturations in Dr. Thayer's office were in the low 80s with exertion per Dr. Thayer. Patient has had history of atrial fibrillation and atrial flutter and has been seeing Dr. Guevara. Patient states she was to have another cardioversion but was told she was no longer in atrial fibrillation. Patient states she has been coughing the last 2 days but it is not typically like with her seasonal ALLERGIES or when she had pneumonia. Patient does have history of frequent pneumonia. Patient says that she has been told she has COPD secondary to asthma (has seen Dr. Hurley). Patient does not smoke or has no second hand smoke exposure. (Smoked for 6 weeks over 40 year ago). Admits intermittent nonproductive cough, SOA, intermittent pedal edema (which is chronic). Patient denies fever, chills, rhinorrhea, CP, nausea, vomiting. Patient is diaphoretic on arrival to ER. <Britney Baums A - 02/03/18 20:33> MD Complaint: shortness of breath <Britney Baumdre Villasenor - 01/25/18 13:04> - Related Data Home Medications Medication Instructions Recorded Confirmed Amlodipine [Norvasc] 10 mg PO DAILY 12/12/17 02/11/18 EPINEPHrine Pen [Epipen] 0.3 mg IM O PRN 12/12/17 02/11/18 FLUoxetine [Prozac] 20 mg PO DAILY 12/12/17 02/11/18 Montelukast [Singulair] 10 mg PO DAILY 12/12/17 02/11/18 Pravastatin [Pravachol] 40 mg PO DAILY 12/12/17 02/11/18 Ropinirole [Requip] 2 mg PO DAILY 12/12/17 02/11/18 Terazosin HCl 10 mg PO HS 12/12/17 02/11/18 Asmanex Twisthaler (Mometasone 110 2 puff INH BID 12/17/17 02/11/18 mcg (30 doses) )breath activated powder inhaler Combigan (brimonidine 0.2 1 drop LEFT EYE Q12H 12/17/17 02/11/18 %-timolol 0.5 %) eye drops Cozaar (losartan) 100 mg tablet 100 mg PO DAILY 12/17/17 02/11/18 Spiriva Respimat (tiotropium 2 puff INH DAILY 12/17/17 02/11/18 bromide) 2.5 mcg/actuation, inhalation Glucophage XR (metformin ER) 500 500 mg PO TID tab 01/07/18 02/11/18 mg tablet, 24 hr Tresiba FlexTouch U-200 (insulin 90 unit SQ HS ml 01/07/18 02/11/18 degludec) 200 unit/mL (3 mL) PEN Albuterol Sulfate [Proair Hfa] 1 puff INH Q4H PRN 01/25/18 02/11/18 Fluticasone Nasal Ranger [Flonase] 2 spray INTRANASAL BID 01/25/18 02/11/18 Insulin Regular, Human [NovoLIN R] 90 - 110 unit SQ TIDWM 01/25/18 02/11/18 Latanoprostene Bunod [Vyzulta] 1 drop EACH EYE HS 01/25/18 02/11/18 flecainide 150 mg tablet 150 mg PO DAILY 30 Days #60 01/25/18 02/11/18 Spiriva with HandiHaler INH 30 Days #30 02/11/18 02/11/18 (tiotropium bromide) 18 mcg capsule with inhalation device Previous Rx's Medication Instructions Recorded Apixaban [Eliquis] 5 mg PO BID #60 tab 12/14/17 Carvedilol [Coreg] 12.5 mg PO BIDWM tab 01/30/18 Furosemide [Lasix 80 mg Tab] 80 mg PO DAILY tab 01/30/18 Levothyroxine Sodium [Synthroid] 100 mcg PO Hyman@0630 #30 tab 01/30/18 Levothyroxine Sodium [Synthroid] 200 mcg PO MoTuWeThFrSa@0630 tab 01/30/18 Potassium Chloride [K-DUR 20 mEq 40 meq PO BIDWM #30 tab 01/30/18 Tablet] Zyloprim (Allopurinol) 300 mg 300 mg PO DAILY #90 tab 02/06/18 tablet cefdinir 300 mg capsule 300 mg PO Q12H 10 Days #20 cap 02/11/18 <Aman Castano Q - 02/14/18 19:33> Allergies Allergy/AdvReac Type Severity Reaction Status Date / Time Penicillins Allergy Severe anaphylaxis Verified 02/11/18 09:20 ciprofloxacin [From Cipro] Allergy Unknown Verified 02/11/18 09:20 labetalol Allergy Unknown Verified 02/11/18 09:20 levofloxacin [From Levaquin] Allergy Unknown Verified 02/11/18 09:20 lisinopril Allergy Unknown Verified 02/11/18 09:20 tramadol [From Ultram] Allergy Unknown Verified 02/11/18 09:20 <Aman Castano Q - 02/14/18 19:33> Review of Systems All systems: reviewed and negative except as stated <Elba Baum - 13:04> Cardiovascular: Reports: dyspnea on exertion <Elba Baum - 01/25/18 16: 08> Respiratory: Reports: as per HPI, cough <Elba Baum - 01/25/18 16:08> [facility] Patient Stated Medical History Migraine Yes Cataracts Yes: Both eyes Glaucoma Yes: Left Eye Cardiac Arrhythmia Yes: AFlutter Hypertension Yes Asthma Yes Bronchitis Yes Chronic Obstructive Pulmonary Yes Disease (COPD) Pneumonia Yes Sleep Apnea Yes Diabetes Mellitus Type 2 Yes Gastroesophageal Reflux Yes Disease Other Yes: Gallbladder Osteoarthritis Yes Shingles Yes Depression Yes Clinic Medical History (Last Reviewed 02/07/18 @ 10:57 by Salty Robles LPN) Diabetes mellitus type 2, uncontrolled, without complications (Chronic Medical ~ 1977) Poor control. Needs more bolus and less basal insulin. Also needs to use carb ratio for bolusing. HTN (hypertension) (Chronic Medical) Borderline control. Hyperlipidemia (Chronic Medical) On a statin. Hypothyroidism (Chronic Medical ~1977) Clinically euthyroid, but chemically over-replaced. Needs to reduce dose a bit. Afib (Chronic Medical) Depression (Chronic Medical) Asthma (Chronic Medical) <Aman Castano Q - 02/14/18 19:33> Surgical History: EYE SURGERY FOR GLAUCOMA: 11/2015, 02/2016, tonsillectomy and adenoidectomy-H6, cholecystectomy, right Achilles tendon repair, R tympanoplasty <Elba Baum 01/25/18 12:45> Family History: Family History (Last Reviewed 02/07/18 @ 10:57 by Salty Robles LPN) Mother Lupus Diabetes Heart disease Father Heart disease Skin cancer Dementia Brother Skin cancer Afib H/O heart bypass surgery Maternal Grandmother Heart disease Maternal Grandfather Cancer Paternal Grandmother Dementia Paternal Grandfather Stroke <Aman Castano Q - 02/14/18 19:33> Family History Updates: Reviewed <Elba Baum 01/25/18 12:45> - Social History Smoking status: Never smoker <Elba Baum 01/25/18 12:45> Substance use type: does not use <Elba Baum 01/25/18 12:45> Alcohol intake frequency: does not drink <Elba Baum 01/25/18 12:45> Household members: family <Elba Baum 01/25/18 12:45> Current occupational status: retired <Elba Baum 01/25/18 12:45> Current residence: Apartment/Private Home <Elba Baum 01/25/18 12:45> Physical Exam - Limitations Limitations: no limitations <Elba Baum 01/25/18 13:04> - General General appearance: alert, obese <Elba Baum 01/25/18 13:04> - Normal Exams: Head:: Normocephalic without trauma <Elba Bamu 01/25/18 13:04> Eyes:: Pupils are PERRLA w/ EOMI, No scleral icterus, irritation <Elba Baum 01/25/18 13:04> ENMT:: No facial trauma, nasal exudates, pharyngeal erythema, or exudates are noted <Elba Baum 01/25/18 13:04> Cardiovascular:: Regular rate and rhythm, without murmur or gallop, Pulses 2+ all extremities (, no pedal edema) <Elba Baum 01/25/18 16:08> Abdomen:: Bowel sounds positive <Elba Baum 01/25/18 13:04> Musculoskeletal:: No tenderness, or deformity noted, good range of motion, all extremities <Elba Baum 01/25/18 13:04> Neurological:: Patient is alert, and oriented, cranial nerves, motor/sensory/ cerebellar, exams w/o gross deficits, to observation <Elba Baum 01/25 13:04> Psychiatric:: Patient exhibits, appropriate attention, emotion and affect < Elba Baum 01/25/18 13:04> - Eye Eye exam: Present: EOMI <Elba Baum 01/25/18 13:04> - ENT ENT exam: Present: mucous membranes moist, TM's normal bilaterally <Elba Baum 01/25/18 13:04> - Neck Neck exam: Present: trachea midline <Elba Baum 01/25/18 13:04> - Expanded Respiratory Exam Location: Left: decreased breath sounds, Right: decreased breath sounds, Upper: decreased breath sounds, Lower: decreased breath sounds <Elba Baum 13:04> Course - Consultations Consultation #1: I discussed patient's HPI, PMH, VS, x-rays, labs, exam findings and treatment in the ED with Cookie Russell APRN. Cookie said Dr. Alvarez is out of town and event specialist product demonstrator bilingual patient support caseworker is covering [place] and [place] so will mostly not be able to see patient in [place]. <Elba Baum 02/14/18 13:08> Consultation #2: I discussed patient's HPI, PMH, VS, x-rays, labs, exam findings and treatment in the ED with Dr. Graves. Dr. Graves will admit patient. Dr. Graves was told about cardiology coverage. <Elba Baum 02/14/18 13:08> Vital Signs Temperature 98.0 F 01/25/18 12:20 Pulse Rate 85 01/25/18 12:20 Respiratory Rate 28 H 01/25/18 12:20 Blood Pressure 173/74 H 01/25/18 12:20 Pulse Oximetry 96 01/25/18 12:20 Temperature 98.5 F 01/30/18 11:59 Pulse Rate 69 01/30/18 16:58 Respiratory Rate 16 01/30/18 11:59 Blood Pressure 121/58 01/30/18 11:59 Pulse Oximetry 93 01/30/18 11:59 <Aman Castano Q - 02/14/18 19:33> Shortness of Breath/Dyspnea - [facility] Narrative Medical decision making narrative: Improved movement of air in bilateral upper lobes after duoneb. Patient now having expiratory wheezes in upper lobes after second duoneb. Still decreased movement of air throughout lung krishnamurthy. Patient is admitted due to SOA and excretional hypoxia. <Elba Baum - 02/14/18 13:08> - Differential Diagnosis Likely: acute exacerbation of chronic obstructive airways disease, congestive heart failure (PR), community acquired pneumonia, pulmonary embolism <Elba Baum - 01/25/18 13:04> - Medical Records Attestation: I reviewed the patient's medical records. <Elba Baum - 14:18> - Lab Data Attestation: I reviewed the patient's lab results. <Elba Baum - 14:18> Result diagrams: 01/30/18 04:26 01/30/18 04:26 <Aman Castano Q - 02/14/18 19:33> Lab Results 01/25/18 01/25/18 01/25/18 Range/Units 13:12 13:12 13:12 WBC 12.3 H (4.5-11.0) T/MM3 RBC 4.02 (4.00-5.20) M/MM3 Hgb 12.1 (12-16) GM/DL Hct 37.2 (36-46) % MCV 92.5 (80-100) UM3 MCH 30.1 (26-34) UUG MCHC 32.5 (31-37) GM/DL RDW Std Deviation 51.6 H (36.9-50.2) FL Plt Count 217 (130-400) T/MM3 MPV 10.1 (9.4-12.4) UM3 Immature Gran % (Auto) 0.2 (0.0-0.5) % Neut % (Auto) 65.9 (33-66) % Lymph % (Auto) 23.0 (23-45) % Reagan % (Auto) 8.7 (0-9.0) % Eos % (Auto) 2.0 (0-4) % Baso % (Auto) 0.2 (0-2) % Neut # (Auto) 8.1 H (1.8-7.7) T/MM3 Lymph # (Auto) 2.8 (1-4.8) T/MM3 Reagan # (Auto) 1.1 H (0-0.8) T/MM3 Eos # (Auto) 0.2 (0-0.5) T/MM3 Baso # (Auto) 0.0 (0-0.2) T/MM3 Abs Immat Gran (auto) 0.03 (0.00-0.03) T/MM3 D-Dimer 286 H (0-230) NG/ML Turbidity < 20 (0-20) Sodium 151 H (134-144) MEQ/L Potassium 3.2 L (3.6-5) MEQ/L Chloride 109 H (98-107) MEQ/L Carbon Dioxide 29 (22-30) MEQ/L Anion Gap 13 (5-15) MEQ/L BUN 23.0 H (7-17) MG/DL Creatinine 0.9 (0.7-1.2) mg/dL GFR Calculation 62 BUN/Creatinine Ratio 26 (6-26) RATIO Glucose 53 L (65-110) MG/DL Glucometer (65-110) mg/dL Calculated Osmolality 291 H (261-280) MOSM/KG Calcium 9.0 (8.4-10.2) MG/DL Total Bilirubin 1.10 (0.20-1.30) MG/DL Icterus Index < 2 (0-7) AST 30 (14-36) U/L ALT 26 (1-35) U/L Alkaline Phosphatase 70 (38-126) U/L Troponin I 0.037 (0-0.12) ng/ml NT-Pro-B Natriuret Pep 5040 H (0-175) pg/mL Total Protein 6.8 (6.3-8.2) g/dL Albumin 3.7 (3.5-5.0) g/dL Globulin 3.1 (2.4-3.6) G/DL Albumin/Globulin Ratio 1.2 (1.1-2.2) RATIO Specimen Hemolysis < 15 (0-25) Ur Collection Type Urine Color (YELLOW) Urine Clarity Urine pH (5.0-8.0) Ur Specific [place] (1.015-1.025) Urine Protein (NEGATIVE) Urine Glucose (UA) (NEGATIVE) Urine Ketones (NEGATIVE) Urine Occult Blood (NEGATIVE) Urine Nitrate (NEGATIVE) Urine Bilirubin (NEGATIVE) Urine Urobilinogen (NORMAL) EU/DL Ur Leukocyte Esterase (NEGATIVE) Urine RBC (0-3) /HPF Urine WBC (0-5) /HPF Ur Squamous Epith Cells Ur Transition Epith Cell /HPF Urine Bacteria (NEGATIVE) Urine Mucus Ur Culture Indicated? 01/25/18 01/25/18 01/25/18 Range/Units 14:24 15:46 16:26 WBC (4.5-11.0) T/MM3 RBC (4.00-5.20) M/MM3 Hgb (12-16) GM/DL Hct (36-46) % MCV (80-100) UM3 MCH (26-34) UUG MCHC (31-37) GM/DL RDW Std Deviation (36.9-50.2) FL Plt Count (130-400) T/MM3 MPV (9.4-12.4) UM3 Immature Gran % (Auto) (0.0-0.5) % Neut % (Auto) (33-66) % Lymph % (Auto) (23-45) % Reagan % (Auto) (0-9.0) % Eos % (Auto) (0-4) % Baso % (Auto) (0-2) % Neut # (Auto) (1.8-7.7) T/MM3 Lymph # (Auto) (1-4.8) T/MM3 Reagan # (Auto) (0-0.8) T/MM3 Eos # (Auto) (0-0.5) T/MM3 Baso # (Auto) (0-0.2) T/MM3 Abs Immat Gran (auto) (0.00-0.03) T/MM3 D-Dimer (0-230) NG/ML Turbidity (0-20) Sodium (134-144) MEQ/L Potassium (3.6-5) MEQ/L Chloride (98-107) MEQ/L Carbon Dioxide (22-30) MEQ/L Anion Gap (5-15) MEQ/L BUN (7-17) MG/DL Creatinine (0.7-1.2) mg/dL GFR Calculation BUN/Creatinine Ratio (6-26) RATIO Glucose (65-110) MG/DL Glucometer 64 158 (65-110) mg/dL Calculated Osmolality (261-280) MOSM/KG Calcium (8.4-10.2) MG/DL Total Bilirubin (0.20-1.30) MG/DL Icterus Index (0-7) AST (14-36) U/L ALT (1-35) U/L Alkaline Phosphatase (38-126) U/L Troponin I (0-0.12) ng/ml NT-Pro-B Natriuret Pep (0-175) pg/mL Total Protein (6.3-8.2) g/dL Albumin (3.5-5.0) g/dL Globulin (2.4-3.6) G/DL Albumin/Globulin Ratio (1.1-2.2) RATIO Specimen Hemolysis (0-25) Ur Collection Type Urine, void-cc/notcc Urine Color Yellow (YELLOW) Urine Clarity Cloudy Urine pH 5.5 (5.0-8.0) Ur Specific [place] 1.020 (1.015-1.025) Urine Protein 2+ A (NEGATIVE) Urine Glucose (UA) Negative (NEGATIVE) Urine Ketones Negative (NEGATIVE) Urine Occult Blood Trace-lysed (NEGATIVE) Urine Nitrate Negative (NEGATIVE) Urine Bilirubin Negative (NEGATIVE) Urine Urobilinogen 0.2 (NORMAL) EU/DL Ur Leukocyte Esterase 3+ A (NEGATIVE) Urine RBC 0-1 (0-3) /HPF Urine WBC 10-20 H (0-5) /HPF Ur Squamous Epith Cells 10-20 Ur Transition Epith Cell 3-5 /HPF Urine Bacteria 2+ H (NEGATIVE) Urine Mucus Present Ur Culture Indicated? Cult reflexed &setup <Aman Castano Q - 02/14/18 19:33> Lab Results 01/25/18 01/25/18 01/25/18 Range/Units 13:12 13:12 13:12 WBC 12.3 H (4.5-11.0) T/MM3 RBC 4.02 (4.00-5.20) M/MM3 Hgb 12.1 (12-16) GM/DL Hct 37.2 (36-46) % MCV 92.5 (80-100) UM3 MCH 30.1 (26-34) UUG MCHC 32.5 (31-37) GM/DL RDW Std Deviation 51.6 H (36.9-50.2) FL Plt Count 217 (130-400) T/MM3 MPV 10.1 (9.4-12.4) UM3 Immature Gran % (Auto) 0.2 (0.0-0.5) % Neut % (Auto) 65.9 (33-66) % Lymph % (Auto) 23.0 (23-45) % Reagan % (Auto) 8.7 (0-9.0) % Eos % (Auto) 2.0 (0-4) % Baso % (Auto) 0.2 (0-2) % Neut # (Auto) 8.1 H (1.8-7.7) T/MM3 Lymph # (Auto) 2.8 (1-4.8) T/MM3 Reagan # (Auto) 1.1 H (0-0.8) T/MM3 Eos # (Auto) 0.2 (0-0.5) T/MM3 Baso # (Auto) 0.0 (0-0.2) T/MM3 Abs Immat Gran (auto) 0.03 (0.00-0.03) T/MM3 D-Dimer 286 H (0-230) NG/ML Turbidity < 20 (0-20) Sodium 151 H (134-144) MEQ/L Potassium 3.2 L (3.6-5) MEQ/L Chloride 109 H (98-107) MEQ/L Carbon Dioxide 29 (22-30) MEQ/L Anion Gap 13 (5-15) MEQ/L BUN 23.0 H (7-17) MG/DL Creatinine 0.9 (0.7-1.2) mg/dL GFR Calculation 62 BUN/Creatinine Ratio 26 (6-26) RATIO Glucose 53 L (65-110) MG/DL Glucometer (65-110) mg/dL Calculated Osmolality 291 H (261-280) MOSM/KG Calcium 9.0 (8.4-10.2) MG/DL Total Bilirubin 1.10 (0.20-1.30) MG/DL Icterus Index < 2 (0-7) AST 30 (14-36) U/L ALT 26 (1-35) U/L Alkaline Phosphatase 70 (38-126) U/L Troponin I 0.037 (0-0.12) ng/ml NT-Pro-B Natriuret Pep 5040 H (0-175) pg/mL Total Protein 6.8 (6.3-8.2) g/dL Albumin 3.7 (3.5-5.0) g/dL Globulin 3.1 (2.4-3.6) G/DL Albumin/Globulin Ratio 1.2 (1.1-2.2) RATIO Specimen Hemolysis < 15 (0-25) Ur Collection Type Urine Color (YELLOW) Urine Clarity Urine pH (5.0-8.0) Ur Specific [place] (1.015-1.025) Urine Protein (NEGATIVE) Urine Glucose (UA) (NEGATIVE) Urine Ketones (NEGATIVE) Urine Occult Blood (NEGATIVE) Urine Nitrate (NEGATIVE) Urine Bilirubin (NEGATIVE) Urine Urobilinogen (NORMAL) EU/DL Ur Leukocyte Esterase (NEGATIVE) Urine RBC (0-3) /HPF Urine WBC (0-5) /HPF Ur Squamous Epith Cells Ur Transition Epith Cell /HPF Urine Bacteria (NEGATIVE) Urine Mucus Ur Culture Indicated? 01/25/18 01/25/18 01/25/18 Range/Units 14:24 15:46 16:26 WBC (4.5-11.0) T/MM3 RBC (4.00-5.20) M/MM3 Hgb (12-16) GM/DL Hct (36-46) % MCV (80-100) UM3 MCH (26-34) UUG MCHC (31-37) GM/DL RDW Std Deviation (36.9-50.2) FL Plt Count (130-400) T/MM3 MPV (9.4-12.4) UM3 Immature Gran % (Auto) (0.0-0.5) % Neut % (Auto) (33-66) % Lymph % (Auto) (23-45) % Reagan % (Auto) (0-9.0) % Eos % (Auto) (0-4) % Baso % (Auto) (0-2) % Neut # (Auto) (1.8-7.7) T/MM3 Lymph # (Auto) (1-4.8) T/MM3 Reagan # (Auto) (0-0.8) T/MM3 Eos # (Auto) (0-0.5) T/MM3 Baso # (Auto) (0-0.2) T/MM3 Abs Immat Gran (auto) (0.00-0.03) T/MM3 D-Dimer (0-230) NG/ML Turbidity (0-20) Sodium (134-144) MEQ/L Potassium (3.6-5) MEQ/L Chloride (98-107) MEQ/L Carbon Dioxide (22-30) MEQ/L Anion Gap (5-15) MEQ/L BUN (7-17) MG/DL Creatinine (0.7-1.2) mg/dL GFR Calculation BUN/Creatinine Ratio (6-26) RATIO Glucose (65-110) MG/DL Glucometer 64 158 (65-110) mg/dL Calculated Osmolality (261-280) MOSM/KG Calcium (8.4-10.2) MG/DL Total Bilirubin (0.20-1.30) MG/DL Icterus Index (0-7) AST (14-36) U/L ALT (1-35) U/L Alkaline Phosphatase (38-126) U/L Troponin I (0-0.12) ng/ml NT-Pro-B Natriuret Pep (0-175) pg/mL Total Protein (6.3-8.2) g/dL Albumin (3.5-5.0) g/dL Globulin (2.4-3.6) G/DL Albumin/Globulin Ratio (1.1-2.2) RATIO Specimen Hemolysis (0-25) Ur Collection Type Urine, void-cc/notcc Urine Color Yellow (YELLOW) Urine Clarity Cloudy Urine pH 5.5 (5.0-8.0) Ur Specific [place] 1.020 (1.015-1.025) Urine Protein 2+ A (NEGATIVE) Urine Glucose (UA) Negative (NEGATIVE) Urine Ketones Negative (NEGATIVE) Urine Occult Blood Trace-lysed (NEGATIVE) Urine Nitrate Negative (NEGATIVE) Urine Bilirubin Negative (NEGATIVE) Urine Urobilinogen 0.2 (NORMAL) EU/DL Ur Leukocyte Esterase 3+ A (NEGATIVE) Urine RBC 0-1 (0-3) /HPF Urine WBC 10-20 H (0-5) /HPF Ur Squamous Epith Cells 10-20 Ur Transition Epith Cell 3-5 /HPF Urine Bacteria 2+ H (NEGATIVE) Urine Mucus Present Ur Culture Indicated? Cult reflexed &setup <Elba Baum - 01/25/18 13:04> - Radiology Data Attestation: I reviewed the patient's radiology results. <Elba Baum 01/25/18 14:18> CXR: mild congestive failure (Dr. Clark) <Elba Baum 01/25/18 14:18> - EKG Data EKG #1 EKG attestation: Yes: I reviewed and interpreted this EKG. <Aman Castano Q - 02/14/18 19:33> EKG shows normal: sinus rhythm <Aman Castano Q 02/14/18 19:33> Rate: normal <Aman Castano Q 02/14/18 19:33> Rhythm: NSR <Aman Castano Q 02/14/18 19:33> [place]/QRS: normal <Aman Castano Q 02/14/18 19:33> Heart block present: 1st Degree <Aman Castano Q - 02/14/18 19:33> Interpretation: no acute changes <Aman Castano Q - 02/14/18 19:33> Disposition Clinical Impression: Exertional dyspnea <Aman Castano Q - 02/14/18 19:33> Disposition: 02 [place] [facility] [place]Aman Castano Q - 02/14/18 19:33> Condition: Stable <Aman Castano Prabhakar - 02/14/18 19:33> Instructions: <Aman Castano Q - 02/14/18 19:33> Prescriptions: New Carvedilol [Coreg] 12.5 mg PO BIDWM tab Furosemide [Lasix 80 mg Tab] 80 mg PO DAILY tab Levothyroxine Sodium [Synthroid] 100 mcg PO Hyman@0630 #30 tab Levothyroxine Sodium [Synthroid] 200 mcg PO MoTuWeThFrSa@0630 tab Continue FLUoxetine [Prozac] 20 mg PO DAILY Ropinirole [Requip] 2 mg PO DAILY Pravastatin [Pravachol] 40 mg PO DAILY Amlodipine [Norvasc] 10 mg PO DAILY Terazosin HCl 10 mg PO HS Apixaban [Eliquis] 5 mg PO BID #60 tab Albuterol Sulfate [Proair Hfa] 1 puff INH Q4H PRN PRN Reason: Shortness Of Air/Wheezing Insulin Regular, Human [NovoLIN R] 90 - 110 unit SQ TIDWM Fluticasone Nasal Ranger [Flonase] 2 spray INTRANASAL BID Latanoprostene Bunod [Vyzulta] 1 drop EACH EYE HS Potassium Chloride [K-DUR 20 mEq Tablet] 40 meq PO BIDWM #30 tab EPINEPHrine Pen [Epipen] 0.3 mg IM O PRN PRN Reason: Prn Orders Montelukast [Singulair] 10 mg PO DAILY Cozaar (losartan) 100 mg tablet 100 mg PO DAILY Asmanex Twisthaler (Mometasone 110 mcg (30 doses) )breath activated powder inhaler 2 puff INH BID Spiriva Respimat (tiotropium bromide) 2.5 mcg/actuation, inhalation 2 puff INH DAILY Glucophage XR (metformin ER) 500 mg tablet, 24 hr 500 mg PO TID tab flecainide 150 mg tablet 150 mg PO DAILY 30 Days #60 Combigan (brimonidine 0.2 %-timolol 0.5 %) eye drops 1 drop LEFT EYE Q12H Tresiba FlexTouch U-200 (insulin degludec) 200 unit/mL (3 mL) PEN 90 unit SQ HS ml Discontinued Levothyroxine Sodium 200 mcg PO DAILY Chlorthalidone 25 mg PO DAILY Furosemide [Lasix 80 mg Tab] 80 mg PO MOWEFR Lopressor (metoprolol tartrate) 50 mg tablet 50 mg PO BID 30 Days #60 tab Mobic (Meloxicam) 7.5 mg tablet 15 mg PO QAM tab No Action cefdinir 300 mg capsule 300 mg PO Q12H 10 Days #20 cap Zyloprim (Allopurinol) 300 mg tablet 300 mg PO DAILY #90 tab Spiriva with HandiHaler (tiotropium bromide) 18 mcg capsule with inhalation device INH 30 Days #30 <Aman Castano Q - 02/14/18 19:33> Referrals: Jose Thayer DO [Family Provider] - <Aman Castano Q - 02/14/18 19:33> Forms: <Aman Castano Q - 02/14/18 19:33> - Seen By: midlevel <Elba Baum A - 01/25/18 15:40>
[2018-01-25] MEDS ORDERED: ALBUTEROL/IPRATROPIUM 2.5mg-0.5mg/3ml NEB AEROSOL ONE ×2 (12:56→13:52)
[2018-01-25] MEDS ORDERED: METHYLPREDNISOLONE SOD SUCC 125mg/2ml INJECTION IVP ONE (15:32)
[2018-01-25] MEDS: SALINE FLUSH 10ml SYRINGE IVF PRN ×2 (15:40→18:41)
[2018-01-25 16:15] VITALS: BMI 44.4
--- NOTE | 2018-01-25 17:14 | History & Physical Report ---
History of Present Illness Date: 01/25/18 Chief complaint: exertional dyspnea HPI: Amaris is a pleasant 67 yr old female who is known to the hospitalist service from previous admission last month. In December 2017 Patient was admitted with atrial flutter. At that time she was placed on Eliquis. She has been seen in the outpatient setting by both Dr. Alvarez and Dr Guevara. Patient was scheduled for an outpatient cardioversion today by Dr. Guevara however, upon arrival, she was found to be in normal sinus rhythm. Staff noted her to be having increased dyspnea and patient was directed to see her primary care provider. She then presented to see Dr. Thayer at his office. She was found to be dyspneic with room air saturations dipping into the 80s. Patient was instructed to present to the emergency room for acute evaluation. Upon arrival to the emergency room acute evaluation was performed. Patient was to Breathing 28-40 times a minute and on arrival oxygen saturations were 84%. She had a temperature of 100.1. CBC revealed mild leukocytosis with a white count of 12.3. Sodium is elevated at 151, and potassium slightly low at 3.2. Troponin was negative at 0.037, proBNP 5040. Lead EKG revealed regular sinus rhythm. Chest x-ray had been done earlier today in the outpatient setting by Dr. Thayer, which showed mild congestive failure, otherwise unremarkable. Given her severe dyspnea with tachpnea, exertional hypoxia. The hospitalist services were contacted and septa patient for admission for further evaluation and treatment. Patient reports since hospitalization in December. She has had several medication changes. She reports that she initially was taken off of flecainide 50 milligrams, however, then placed back on it by Dr. Guevara at 150 milligrams a day. She is also started on Eliquis for anticoagulation given findings of atrial fibrillation. She reports that she has had ongoing dyspnea for the past 3 weeks, however, worse over the last week to the point that she is unable to ambulate even short distances without severe dyspnea. She notes over the last 24 hours. She is having significant conversational dyspnea to the point she is unable to speak 4-5 words at a time without needing to breathe. She does note last night she had a mild fever, however, denies any productive coughing. He does chronically use BiPAP with oxygen at nighttime only. She has been seen in the past by Dr. Hurley, given her underlying lung disease of asthma. She reports that she has been told she possibly had an underlying COPD. She was a smoker for 6 weeks. However, then quit approximately 40 years ago. She is noted to be at 8.5 pounds since 12/13/17. We did discuss advanced directives and she does wish to be a full code Review of Systems All systems PM: 10-point ROS was reviewed, no additional remarkable complaints except - Respiratory Respiratory: Present: dyspnea, dyspnea on exertion Past Medical History Patient Stated Medical History Paroxysmal atrial fibrillation/flutter Asthma possible COPD Hypertension Type II diabetes Hyperlipidemia. Hypothyroidism Depression GERD ELIZABETH Negative Cardiac stress test (2010?)- [facility] Cardioversion and ALTA- 12/12/17 (Dr Alvarez) IMPRESSION 1. No intracardiac thrombus or mass. 2. Left atrial dilation. 3. Normal LV systolic function with ejection fraction of about 65%. 4. Mild mitral regurgitation. 5. Mild aortic insufficiency. 6. Mild tricuspid regurgitation. 7. Mild pulmonary insufficiency. 9. Mild atherosclerosis of the descending thoracic aorta. Surgical History: EYE SURGERY FOR GLAUCOMA: 11/2015, 02/2016,. Tonsillectomy and adenoidectomy-H6. Colecystectomy. Right Achilles tendon repair. R tympanoplasty Family History Updates: Mother - heart disease, diabetes, lupus. Father -heart disease, skin cancer , dementia. Brother- Skin cancer, Afib, H/O heart bypass surgery in his 50's. Maternal Grandmother. Heart disease. Maternal Grandfather. Cancer. Paternal Grandmother. Dementia. Paternal Grandfather. Stroke - Social History Smoking status: Never smoker (Smoked for 6 week only- 40 yrs ago) Substance use type: does not use Alcohol intake frequency: does not drink Housing: house Current occupational status: unemployed Current residence: Apartment/Private Home Social history: PCP-Dr. Thayer [place]-Dr. Alvarez, Dr. Guevara Pulmonology-Dr. Hurley Medications Home Medications Medication Instructions Recorded Confirmed Type Allopurinol [Zyloprim] 300 mg PO DAILY 12/12/17 01/25/18 History Amlodipine [Norvasc] 10 mg PO DAILY 12/12/17 01/25/18 History Chlorthalidone 25 mg PO DAILY 12/12/17 01/25/18 History EPINEPHrine Pen [Epipen] 0.3 mg IM O PRN 12/12/17 01/25/18 History FLUoxetine [Prozac] 20 mg PO DAILY 12/12/17 01/25/18 History Levothyroxine Sodium 200 mcg PO DAILY 12/12/17 01/25/18 History Montelukast [Singulair] 10 mg PO DAILY 12/12/17 01/25/18 History Pravastatin [Pravachol] 40 mg PO DAILY 12/12/17 01/25/18 History Ropinirole [Requip] 2 mg PO DAILY 12/12/17 01/25/18 History Terazosin HCl 10 mg PO HS 12/12/17 01/25/18 History Apixaban [Eliquis] 5 mg PO BID #60 tab 12/14/17 01/25/18 Rx Potassium Chloride [K-DUR 20 mEq 40 meq PO TIDWM #30 tab 12/14/17 01/25/18 Rx Tablet] Asmanex Twisthaler (Mometasone 110 2 puff INH BID 12/17/17 01/25/18 History mcg (30 doses) )breath activated powder inhaler Combigan (brimonidine 0.2 1 drop LEFT EYE Q12H 12/17/17 01/25/18 History %-timolol 0.5 %) eye drops Cozaar (losartan) 100 mg tablet 100 mg PO DAILY 12/17/17 01/25/18 History Mobic (Meloxicam) 7.5 mg tablet 15 mg PO QAM tab 12/17/17 01/25/18 History Spiriva Respimat (tiotropium 2 puff INH DAILY 12/17/17 01/25/18 History bromide) 2.5 mcg/actuation, inhalation Glucophage XR (metformin ER) 500 500 mg PO TID tab 01/07/18 01/25/18 History mg tablet, 24 hr Tresiba FlexTouch U-200 (insulin 130 unit SQ HS ml 01/07/18 01/25/18 History degludec) 200 unit/mL (3 mL) PEN Albuterol Sulfate [Proair Hfa] 1 puff INH Q4H PRN 01/25/18 01/25/18 History Fluticasone Nasal [place] [Flonase] 2 spray INTRANASAL BID 01/25/18 01/25/18 History Furosemide [Lasix 80 mg Tab] 80 mg PO MOWEFR 01/25/18 01/25/18 History Insulin Regular, Human [NovoLIN R] 110 unit SQ DAILY 01/25/18 01/25/18 History Latanoprostene Bunod [Vyzulta] 1 drop EACH EYE HS 01/25/18 01/25/18 History Lopressor (metoprolol tartrate) 50 50 mg PO BID 30 Days #60 tab 01/25/18 History mg tablet flecainide 150 mg tablet 150 mg PO DAILY 30 Days #60 01/25/18 01/25/18 History Allergies Allergy/AdvReac Type Severity Reaction Status Date / Time Penicillins Allergy Severe anaphylaxis Verified 01/25/18 11:19 ciprofloxacin [From Cipro] Allergy Unknown Verified 01/25/18 11:19 labetalol Allergy Unknown Verified 01/25/18 11:19 levofloxacin [From Levaquin] Allergy Unknown Verified 01/25/18 11:19 lisinopril Allergy Unknown Verified 01/25/18 11:19 tramadol [From Ultram] Allergy Unknown Verified 01/25/18 11:19 Exam Vital Signs: Temperature 100.1 F 01/25/18 16:23 Pulse Rate 93 01/25/18 16:23 Respiratory Rate 20 01/25/18 16:23 Blood Pressure 149/82 H 01/25/18 16:23 Pulse Oximetry 92 01/25/18 16:23 Telemetry Rhythm: Sinus Rhythm Height/Weight/BMI: Height 1.69 m Weight 126.9 kg Body Mass Index 44.4 - Constitutional Present: moderate distress (with exertion), well nourished, well developed, morbidly obese - Routine HEENT Exam Eye: Present: EOMI ENT: Present: mucous membranes moist, dentition normal - Routine Respiratory Exam Present: CTA bilaterally. Absent: wheezes - Routine Cardiovascular Exam Present: RRR, S1, S2. Absent: murmur - Routine Abdominal Exam Present: soft, normoactive bowel sounds, non distended. Absent: tenderness - Routine Extremities Exam Present: full ROM, pulses intact - Routine Back/Spine/Pelvis Exam Back/Spine: Present: full ROM - Routine Skin Exam Present: intact, dry, warm - Routine Neurological Exam Present: alert, oriented X3, CN II-XII intact, moving all extremities - Routine Psychiatric Exam Present: normal affect, normal thought process, cooperative Results - Labs CBC & Chem 7: 01/25/18 13:12 01/25/18 13:12 Microbiology Results: Microbiology 01/25/18 16:26 Urine, Voided (Cc/notcc) Urine Culture - Preliminary Culture Initiated - Results Pending Assessment and Plan (1) Exertional dyspnea Current visit: Yes Status: Acute Assessment and Plan: Impression Acute hypoxic respiratory failure Exertional hypoxia- Decreased to 80% Severe dyspnea with exertion- tachypnea- 48/minute CHF - RLL 01/25/18 Leukocytosis with fever- POA Hypernatremia-POA- 151 Hypokalemia- POA- 3.2 Asthma Questionable COPD Obstructive sleep apnea- Uses Bi-pap with O2 at night Type II diabetes Hypertension Paroxysmal atrial fibrillation/flutter Hyperlipidemia Hypothyroidism Depression Plan Initially patient was admitted as observation, however, given significant hypoxia with minimal exertion change patient to inpatient status and admit her to the hospitalist services under the care of Dr. Graves Exact etiology of hypoxia is unclear as it could be multiply factorial. Cardiology consultation placed to Dr Alvarez as he has followed in the outpt setting. She is scheduled for stress test in the beginning of February. It is recommended by pulmonology that if patient does obtain a stress test that she have Right and Left sided procedure to evaluate pulmonary pressure. Patient placed to Dr. Hurley. Did speak with him on the phone. He will see patient on Sunday01/27/18. Given mild fever will obtain a viral respiratory panel to rule out infectious etiology. Patient on scheduled breathing treatments including DuoNeb 4 times a day and Pulmicort twice a day Will hold off on starting IV fluids at this point, will discuss further with attending. Patient may be having some fluid overload given increased weight and questionable edema on chest x-ray. Patient does routinely takes Lasix 80 mg- Sunday, Sunday and Sunday for diuresis. Will discuss with attending. Will monitor Accu-Cheks, patient did have mild hypoglycemia into the 50s while in the emergency room. Will discuss insulin regimen Since she is in Sinus Rhythm Cardiology recommends stopping Eliquis at this time in case patient needs cardiac catheter in the near future Cardiology also requests obtaining echocardiogram, serial troponins, and giving a one-time dose of Lasix 80 milligrams IV Will replace potassium orally- 40 MEQ now and scheduled TID Urinalysis reviewed does reveal leukocyte esterase with WBCs. However, there is external squamous epithelial Cells. She is asymptomatic, will wait and review Urine culture. Place schneider cath to monitor urinary output SCDs to bilateral lower extremity for DVT prophylaxis Check CBC and BMP tomorrow morning to follow blood counts, renal function and electrolytes Patient does wish to be a full code and this order is written Will discuss further orders and plan of care with attending, Dr. Graves At time of discharge medical care will return to primary care provider, Dr Thayer DVT Prophylaxis: SCD's Resuscitation Status: Full Code - Time spent with patient Time with patient PN: 50 minutes - Physician Narrative Physician: Francheska Graves MD Narrative: Date: 01/25/18 Time: 1703 I have independently evaluated and examined this patient. I reviewed the chart, the patient's history, and the [employer]OR[employer]AD[employer]/PA's documented findings as above. We discussed and formulated the assessment and plan as above with additions as below: Amaris describes chronic dyspnea which has worsened dramatically in the past month -dyspnea is especially prominent with any activity. Without BiPAP she cannot lie down flat but with BiPAP/O2 she is comfortable lying flat. She has demonstrated repetitive hypoxia with minimal activity today. She denies wheezing , reports some cough with occasional sputum production. She felt feverish overnight and had temperature demonstrated on admission. There is minimal leukocytosis. Echo 12/12/17 with ejection fraction of 65%. Slightly breathless with speech, morbidly obese Regular rhythm, trace edema at the ankles Breath sounds clear anteriorly, good airflow, no wheezing/crackles appreciated posteriorly Calves soft, nontender ECG reviewed by myself-notable primarily for low voltage (compared to EKG 12/14- folded much lower although comparing prior EKGs voltage has varied from 1 to another), sinus rhythm. Chest x-ray reviewed by myself-small pleural effusions, minor increased vascular markings, probable mild CHF; heart somewhat globular-no prior chest x- ray available. BNP elevation noted Diuresis initiated; respiratory viral panel negative. Check sputum culture. Add oral steroids for pulmonary inflammation. Cardiology and pulmonary consultations pending; may require CT imaging of the lungs. Anticipate formal PFTs. Pt's insulin regimen was recently changed by Dr. Pham to Tresiba 90 units qhs (although patient misunderstood and has been using 100 units) and Novolin regular based on carbohydrate intake with conversion factor of number of carbs divided by 1.2. Patient estimates she takes about 110 units of Novolin daily. Patient does not have paperwork to assist carb counting with her and plans to avoid carbohydrates for now-resume long-acting insulin, corrective short acting insulin until pattern established. Anticipate some short acting insulin will be needed with prednisone. Hospital Course Summary Disclaimer: The visit summary below is not to be considered part of the above Progress Note. Hospital Course: Impression Hypoxia with exertion- Decreased to 80% Severe dyspnea with exertion- tachypnea- 48/minute Leukocytosis with fever- POA Hypernatremia-POA- 151 Hypokalemia- POA- 3.2 Asthma Questionable COPD Obstructive sleep apnea- Uses Bi-pap with O2 at night Type II diabetes Hypertension Paroxysmal atrial fibrillation/flutter Hyperlipidemia Hypothyroidism Depression Plan Initially patient was admitted as observation, however, given significant hypoxia with minimal exertion change patient to inpatient status and admit her to the hospitalist services under the care of Dr. Graves Exact etiology of hypoxia is unclear as it could be multiply factorial. Cardiology consultation placed to Dr Alvarez as he has followed in the outpt setting. She is scheduled for stress test in the beginning of February. It is recommended by pulmonology that if patient does obtain a stress test that she have Right and Left sided procedure to evaluate pulmonary pressure. Patient placed to Dr. Hurley. Did speak with him on the phone. He will see patient on Sunday01/27/18. Given mild fever will obtain a viral respiratory panel to rule out infectious etiology. Patient on scheduled breathing treatments including DuoNeb 4 times a day and Pulmicort twice a day Will hold off on starting IV fluids at this point, will discuss further with attending. Patient may be having some fluid overload given increased weight and questionable edema on chest x-ray. Patient does routinely takes Lasix 80 mg- Sunday, Sunday and Sunday for diuresis. Will discuss with attending. Will monitor Accu-Cheks, patient did have mild hypoglycemia into the 50s while in the emergency room. Will discuss insulin regimen Since she is in Sinus Rhythm Cardiology recommends stopping Eliquis at this time in case patient needs cardiac catheter in the near future Cardiology also requests obtaining echocardiogram, serial troponins, and giving a one-time dose of Lasix 80 milligrams IV Will replace potassium orally- 40 MEQ now and scheduled TID Urinalysis reviewed does reveal leukocyte esterase with WBCs. However, there is external squamous epithelial Cells. She is asymptomatic, will wait and review Urine culture. Place schneider cath to monitor urinary output Check CBC and BMP tomorrow morning to follow blood counts, renal function and electrolytes Patient does wish to be a full code and this order is written Will discuss further orders and plan of care with attending, Dr. Graves At time of discharge medical care will return to primary care provider, Dr Thayer
[2018-01-25] MEDS: ALBUTEROL/IPRATROPIUM 2.5mg-0.5mg/3ml NEB AEROSOL SCH ×2 (17:16→21:14)
[2018-01-25] MEDS ORDERED: FUROSEMIDE 100 MG/10 ML INJECTION IVP ONE (17:57)
[2018-01-25] MEDS: BRIMONIDINE/TIMOLOL 0.2%-0.5% EYE DROPS 5ml EACH EYE SCH ×2 (18:40→19:01)
[2018-01-25] MEDS: PRAVASTATIN 40 MG TABLET PO SCH (20:35)
[2018-01-25] MEDS: TERAZOSIN 5 MG CAPSULE PO SCH (20:35)
[2018-01-25] MEDS: BRIMONIDINE/TIMOLOL 0.2%-0.5% EYE DROPS 5ml LEFT EYE SCH (20:58)
[2018-01-25] MEDS ORDERED: APIXABAN 5 MG TABLET PO SCH (21:00)
[2018-01-25] MEDS ORDERED: NON-FORMULARY MEDICATION 1 EACH EACH (Insulin Degludec [Tresiba Flextouch U-200] 90 UNIT) SQ SCH (21:00)
[2018-01-25] MEDS ORDERED: NON-FORMULARY MEDICATION 1 EACH EACH (Metformin Hcl [Metformin Hcl Er] 500 MG) PO SCH (21:00)
[2018-01-25] MEDS: BUDESONIDE INH.SOLN 0.5mg/2ml NEB AEROSOL SCH (21:14)
[2018-01-25] MEDS ORDERED: METFORMIN 850 MG TABLET PO SCH (22:42)
[2018-01-25] MEDS: FLUTICASONE NASAL SPRAY 50mcg EA NOSTRIL SCH (23:08)
[2018-01-25] MEDS: INSULIN DETEMIR 100unit/ml INJECTION SQ SCH (23:09)
[2018-01-26] MEDS: BRIMONIDINE/TIMOLOL 0.2%-0.5% EYE DROPS 5ml LEFT EYE SCH ×2 (06:12→22:05)
[2018-01-26] MEDS: INSULIN ASPART 100unit/ml INJECTION SQ PRN ×3 (06:12→22:29)
[2018-01-26] MEDS: LEVOTHYROXINE 200 MCG TABLET PO SCH (06:12)
[2018-01-26] MEDS: BUDESONIDE INH.SOLN 0.5mg/2ml NEB AEROSOL SCH ×2 (06:39→19:55)
[2018-01-26] MEDS: ALBUTEROL/IPRATROPIUM 2.5mg-0.5mg/3ml NEB AEROSOL SCH ×4 (06:39→19:55)
[2018-01-26] MEDS: LATANOPROSTENE BUNOD PO SCH ×2 (06:59→22:06)
[2018-01-26] MEDS ORDERED: CHLORTHALIDONE 25 MG TABLET PO SCH (09:00)
[2018-01-26] MEDS ORDERED: FUROSEMIDE 80 MG TABLET PO SCH (09:00)
[2018-01-26] MEDS: FLECAINIDE 100 MG TABLET PO SCH (10:36)
[2018-01-26] MEDS: PredniSONE 20 MG TABLET PO SCH (10:37)
[2018-01-26] MEDS: AMLODIPINE 10 MG TABLET PO SCH (10:37)
[2018-01-26] MEDS: ALLOPURINOL 300 MG TABLET PO SCH (10:38)
[2018-01-26] MEDS: ROPINIROLE 2 MG TABLET PO SCH (10:39)
[2018-01-26] MEDS: FLUoxetine 20 MG CAPSULE PO SCH (10:39)
[2018-01-26] MEDS: MONTELUKAST 10 MG TABLET PO SCH (10:40)
[2018-01-26] MEDS: METFORMIN 500 MG TABLET PO SCH ×3 (10:44→17:32)
[2018-01-26] MEDS: LOSARTAN 100 MG TABLET PO SCH (10:44)
[2018-01-26] MEDS: FLUTICASONE NASAL SPRAY 50mcg EA NOSTRIL SCH ×2 (10:59→22:05)
--- NOTE | 2018-01-26 15:03 | Progress Note ---
- Date 01/26/18 Subjective: Patient back to baseline 3 liters oxygen. Up in chair when seen. Says breathing is stable, but hasn't been up. Objective Vital signs: Temperature 97 F 01/26/18 08:00 Pulse Rate 68 01/26/18 14:14 Respiratory Rate 18 01/26/18 10:04 Blood Pressure 151/71 H 01/26/18 08:00 Pulse Oximetry 93 01/26/18 14:14 - Constitutional Present: no acute distress - Routine Respiratory Exam Comments: diminished in bases, no w/r/r. - Routine Cardiovascular Exam Present: RRR - Routine Abdominal Exam Present: soft, non distended, non tender - Routine Extremities Exam Present: no edema - Routine Skin Exam Present: intact, dry, warm - Routine Neurological Exam Present: alert, oriented X3, CN II-XII intact - Routine Psychiatric Exam Present: normal affect Results - Labs CBC & Chem 7: 01/26/18 04:01 01/26/18 04:01 Assessment and Plan (1) Exertional dyspnea Current visit: Yes Status: Acute Assessment and Plan: Impression Acute hypoxic respiratory failure Exertional hypoxia- Decreased to 80% Severe dyspnea with exertion- tachypnea- 48/minute CHF - RLL 01/25/18 Leukocytosis with fever- POA Hypernatremia-POA- 151 Hypokalemia- POA- 3.2 Asthma Questionable COPD Obstructive sleep apnea- Uses Bi-pap with O2 at night Type II diabetes Hypertension Paroxysmal atrial fibrillation/flutter Hyperlipidemia Hypothyroidism Depression Plan Exact etiology of hypoxia is unclear as it could be multiply factorial - ashtma/ copd, volume overload, OHS Cardiology consultation placed to Dr Alvarez as he has followed in the outpt setting. She is scheduled for stress test in the beginning of February. It is recommended by pulmonology that if patient does obtain a stress test that she have Right and Left sided procedure to evaluate pulmonary pressure. Patient placed to Dr. Hurley. Did speak with him on the phone. He will see patient on Sunday01/27/18. RVP negative Patient on scheduled breathing treatments including DuoNeb 4 times a day and Pulmicort twice a day s/p lasix yesterday, now on home dose. Continue steroids. blood sugars increased - takes tresiba 130 units QHS, regular insulin around 100 units daily divided TID, and metformin at home. On latus 90 QHS, ISS, and metformin here. Will hold metformin in case of need for contrast. Add mealtime insulin at 15 units TID. Since she is in Sinus Rhythm Cardiology recommends stopping Eliquis at this time in case patient needs cardiac catheter in the near future Cardiology also requeted on admission obtaining echocardiogram, serial troponins (0.23), and giving a one-time dose of Lasix 80 milligrams IV - patient down 700 since admission. echo pending. will add troponin to am labs to tred Urinalysis reviewed does reveal leukocyte esterase with WBCs. However, there is external squamous epithelial Cells. She is asymptomatic, urine culture normal lulú. Place schneider cath to monitor urinary output SCDs to bilateral lower extremity for DVT prophylaxis Check CBC and BMP tomorrow morning to follow blood counts, renal function and electrolytes Patient does wish to be a full code and this order is written At time of discharge medical care will return to primary care provider, Dr Thayer Get exercise oximetry today. Dr. Hurley to see tomorrow. - Physician Narrative Narrative: Date: 01/26/18 Time: 4823 Hospital Course Summary Disclaimer: The visit summary below is not to be considered part of the above Progress Note. Hospital Course: Impression Hypoxia with exertion- Decreased to 80% Severe dyspnea with exertion- tachypnea- 48/minute Leukocytosis with fever- POA Hypernatremia-POA- 151 Hypokalemia- POA- 3.2 Asthma Questionable COPD Obstructive sleep apnea- Uses Bi-pap with O2 at night Type II diabetes Hypertension Paroxysmal atrial fibrillation/flutter Hyperlipidemia Hypothyroidism Depression Plan Initially patient was admitted as observation, however, given significant hypoxia with minimal exertion change patient to inpatient status and admit her to the hospitalist services under the care of Dr. Graves Exact etiology of hypoxia is unclear as it could be multiply factorial. Cardiology consultation placed to Dr Alvarez as he has followed in the outpt setting. She is scheduled for stress test in the beginning of February. It is recommended by pulmonology that if patient does obtain a stress test that she have Right and Left sided procedure to evaluate pulmonary pressure. Patient placed to Dr. Hurley. Did speak with him on the phone. He will see patient on Sunday01/27/18. Given mild fever will obtain a viral respiratory panel to rule out infectious etiology. Patient on scheduled breathing treatments including DuoNeb 4 times a day and Pulmicort twice a day Will hold off on starting IV fluids at this point, will discuss further with attending. Patient may be having some fluid overload given increased weight and questionable edema on chest x-ray. Patient does routinely takes Lasix 80 mg- Sunday, Sunday and Sunday for diuresis. Will discuss with attending. Will monitor Accu-Cheks, patient did have mild hypoglycemia into the 50s while in the emergency room. Will discuss insulin regimen Since she is in Sinus Rhythm Cardiology recommends stopping Eliquis at this time in case patient needs cardiac catheter in the near future Cardiology also requests obtaining echocardiogram, serial troponins, and giving a one-time dose of Lasix 80 milligrams IV Will replace potassium orally- 40 MEQ now and scheduled TID Urinalysis reviewed does reveal leukocyte esterase with WBCs. However, there is external squamous epithelial Cells. She is asymptomatic, will wait and review Urine culture. Place schneider cath to monitor urinary output Check CBC and BMP tomorrow morning to follow blood counts, renal function and electrolytes Patient does wish to be a full code and this order is written Will discuss further orders and plan of care with attending, Dr. Graves At time of discharge medical care will return to primary care provider, Dr Thayer 01/26 Exact etiology of hypoxia is unclear as it could be multiply factorial - ashtma/ copd, volume overload, OHS Cardiology consultation placed to Dr Alvarez as he has followed in the outpt setting. She is scheduled for stress test in the beginning of February. It is recommended by pulmonology that if patient does obtain a stress test that she have Right and Left sided procedure to evaluate pulmonary pressure. Patient placed to Dr. Hurley. Did speak with him on the phone. He will see patient on Sunday01/27/18. RVP negative Patient on scheduled breathing treatments including DuoNeb 4 times a day and Pulmicort twice a day s/p lasix yesterday, now on home dose Continue steroids. blood sugars increased - takes tresiba 130 units QHS, regular insulin around 100 units daily divided TID, and metformin at home. On latus 90 QHS, ISS, and metformin here. Will hold metformin in case of need for contrast. Add mealtime insulin at 15 units TID. Since she is in Sinus Rhythm Cardiology recommends stopping Eliquis at this time in case patient needs cardiac catheter in the near future Cardiology also requeted on admission obtaining echocardiogram, serial troponins (0.23), and giving a one-time dose of Lasix 80 milligrams IV - patient down 700 since admission. echo pending. will add troponin to am labs to tred Urinalysis reviewed does reveal leukocyte esterase with WBCs. However, there is external squamous epithelial Cells. She is asymptomatic, urine culture normal lulú. Place schneider cath to monitor urinary output SCDs to bilateral lower extremity for DVT prophylaxis Check CBC and BMP tomorrow morning to follow blood counts, renal function and electrolytes Patient does wish to be a full code and this order is written At time of discharge medical care will return to primary care provider, Dr Thayer Get exercise oximetry today. Dr. Hurley to see tomorrow.
[2018-01-26] MEDS: INSULIN REGULAR, HUMAN 100 UNIT/ML INJECTION SQ SCH (17:33)
[2018-01-26] MEDS ORDERED: PNEUMOCOCCAL 23 VACCINE 0.5ml INJECTION IM ONE (17:39)
--- NOTE | 2018-01-26 19:15 | Cardiology Consult Note ---
<Ailyn Gale R - Last Filed: 01/27/18 23:18> History of Present Illness Consult date: 01/26/18 Requesting physician: Francheska Graves Consult reason: congestive heart failure Chief complaint: Dyspnea History of present illness: Ms. Werner is a 67-year-old female, well known to 's services; who presented to the ER yesterday with c/o dyspnea and hypoxia. She has a hx of PAF , possible COPD, HTN, DMT2, HLD, Hypothyroidism, GERD and ELIZABETH. She was recently tx in the acute care by last month with afib and is currently on Flecainide and Eliquis. She was scheduled for a DCCV yesterday per but found to be in NSR and this was cancelled. Staff there noted pt to be dyspneic and advised her to go see her PCP. She then went to her PCP and when her O2 sat was checked she was found to have sats in the 80's. Patient states that Dr. Thayer then placed O2 on her and had her walk down the [place] for an xray. She states she did the front view, but when she went to do the side view she felt as if she was about to pass out. This when they out her in a w/c and took her to her car where her friend then drove her to the hospital. On exam patient appears to be slightly SOA with conversation, on 2L of O2. She states that her dyspnea has improved from what it had been on admission. She states that her SOA , if she had to think about it; has most likely been an on going issue for the last 3 to 4 years and has just worsened over this last week. She denies any O2 at home except the 2L with her bipap. She denies having any recent echo done. She does state a recent fall about a month ago. States it occurred 4-5 days before she saw for her Afib. She states at that time she fell in the bathroom, hit her head on the bathtub and states she went to be that Sunday and did not wake until Sunday. She uses a cane or walker to ambulate. She states hx of asthma since childhood. She also denies any CAD, HF of herself though states as a child she was told she had a "growth around" her heart and that it "just went away". Does state a very significant family hx. Her mother in her 60's and the last 10 years of her life she dealt with HF, both her maternal grandparents d/t [place] when her mother was 6 and 7 years old. Her brother has had CABGx5. She denies any smoking except a 6 week period 40+ years ago. When discussing symptoms associated with her dyspnea she states that she also was "clammy and sweaty" on and had a cough. She questioned if she was getting sick and even called 's office to make sure it was ok to come in the next day (Sunday) for her DCCV. She states she was then told to still come in and that her symptoms were "probably r/t" her afib. She denies any CP, N /V, syncope. Review of Systems - Constitutional Constitutional: Present: other Comments: Diaphoretic - EENMT Eyes: Absent: change in vision Balance: Absent: vertigo - Cardiovascular Cardiovascular: Present: chest pain. Absent: palpitations, orthopnea Rhythm: Present: regular rhythm - Respiratory Respiratory: Present: cough, dyspnea on exertion. Absent: wheezing, pain on inspiration - Gastrointestinal Gastrointestinal: Absent: abdominal pain, constipation, diarrhea - Musculoskeletal Musculoskeletal: Present: abnormal gait (Unsteady). Absent: back pain - Integumentary/Breasts Integumentary: Absent: erythema, lesions - Neurological Neurological: Absent: abnormal speech, confusion, memory loss, numbness - Psychiatric Psychiatric: Absent: depression, panic attacks - Allergic/Immunologic Allergic/Immunologic: Absent: itchy eyes [facility] Medical History (Last Updated 01/07/18 @ 08:35 by Jose D Pham MD) Diabetes mellitus type 2, uncontrolled, without complications (Chronic Medical ~ 1977) Poor control. Needs more bolus and less basal insulin. Also needs to use carb ratio for bolusing. HTN (hypertension) (Chronic Medical) Borderline control. Hyperlipidemia (Chronic Medical) On a statin. Hypothyroidism (Chronic Medical ~1977) Clinically euthyroid, but chemically over-replaced. Needs to reduce dose a bit. Afib (Chronic Medical) Depression (Chronic Medical) Asthma (Chronic Medical) Surgical History: EYE SURGERY FOR GLAUCOMA: 11/2015, 02/2016, tonsillectomy and adenoidectomy-H6, cholecystectomy, right Achilles tendon repair, R tympanoplasty Family History: Family History (Last Reviewed 01/07/18 @ 08:12 by RICARDO Fay) Mother Lupus Diabetes Heart disease Father Heart disease Skin cancer Dementia Brother Skin cancer Afib H/O heart bypass surgery Maternal Grandmother Heart disease Maternal Grandfather Cancer Heart Disease Paternal Grandmother Dementia Paternal Grandfather Stroke Family History Updates: Reviewed - Social History Smoking status: Never smoker Substance use type: does not use Alcohol intake frequency: does not drink Housing: house Household members: family Current occupational status: retired Current residence: Apartment/Private Home Medications Home Medications Medication Instructions Recorded Confirmed Type Allopurinol [Zyloprim] 300 mg PO DAILY 12/12/17 01/25/18 History Amlodipine [Norvasc] 10 mg PO DAILY 12/12/17 01/25/18 History Chlorthalidone 25 mg PO DAILY 12/12/17 01/25/18 History EPINEPHrine Pen [Epipen] 0.3 mg IM O PRN 12/12/17 01/25/18 History FLUoxetine [Prozac] 20 mg PO DAILY 12/12/17 01/25/18 History Levothyroxine Sodium 200 mcg PO DAILY 12/12/17 01/25/18 History Montelukast [Singulair] 10 mg PO DAILY 12/12/17 01/25/18 History Pravastatin [Pravachol] 40 mg PO DAILY 12/12/17 01/25/18 History Ropinirole [Requip] 2 mg PO DAILY 12/12/17 01/25/18 History Terazosin HCl 10 mg PO HS 12/12/17 01/25/18 History Apixaban [Eliquis] 5 mg PO BID #60 tab 12/14/17 01/25/18 Rx Potassium Chloride [K-DUR 20 mEq 40 meq PO TIDWM #30 tab 12/14/17 01/25/18 Rx Tablet] Asmanex Twisthaler (Mometasone 110 2 puff INH BID 12/17/17 01/25/18 History mcg (30 doses) )breath activated powder inhaler Combigan (brimonidine 0.2 1 drop LEFT EYE Q12H 12/17/17 01/25/18 History %-timolol 0.5 %) eye drops Cozaar (losartan) 100 mg tablet 100 mg PO DAILY 12/17/17 01/25/18 History Mobic (Meloxicam) 7.5 mg tablet 15 mg PO QAM tab 12/17/17 01/25/18 History Spiriva Respimat (tiotropium 2 puff INH DAILY 12/17/17 01/25/18 History bromide) 2.5 mcg/actuation, inhalation Glucophage XR (metformin ER) 500 500 mg PO TID tab 01/07/18 01/25/18 History mg tablet, 24 hr Tresiba FlexTouch U-200 (insulin 90 unit SQ HS ml 01/07/18 01/25/18 History degludec) 200 unit/mL (3 mL) PEN Albuterol Sulfate [Proair Hfa] 1 puff INH Q4H PRN 01/25/18 01/25/18 History Fluticasone Nasal [place] [Flonase] 2 spray INTRANASAL BID 01/25/18 01/25/18 History Furosemide [Lasix 80 mg Tab] 80 mg PO MOWEFR 01/25/18 01/25/18 History Insulin Regular, Human [NovoLIN R] 90 - 110 unit SQ TIDWM 01/25/18 01/25/18 History Latanoprostene Bunod [Vyzulta] 1 drop EACH EYE HS 01/25/18 01/25/18 History Lopressor (metoprolol tartrate) 50 50 mg PO BID 30 Days #60 tab 01/25/18 History mg tablet flecainide 150 mg tablet 150 mg PO DAILY 30 Days #60 01/25/18 01/25/18 History Allergies Allergy/AdvReac Type Severity Reaction Status Date / Time Penicillins Allergy Severe anaphylaxis Verified 01/25/18 11:19 ciprofloxacin [From Cipro] Allergy Unknown Verified 01/25/18 11:19 labetalol Allergy Unknown Verified 01/25/18 11:19 levofloxacin [From Levaquin] Allergy Unknown Verified 01/25/18 11:19 lisinopril Allergy Unknown Verified 01/25/18 11:19 tramadol [From Ultram] Allergy Unknown Verified 01/25/18 11:19 Exam Vital signs: Temperature 97 F 01/26/18 08:00 Pulse Rate 59 L 01/26/18 16:00 Respiratory Rate 18 01/26/18 16:46 Blood Pressure 143/68 H 01/26/18 16:00 Pulse Oximetry 99 01/26/18 16:46 - Constitutional no acute distress, morbidly obese, cooperative - Routine HEENT Exam Head: Present: normocephalic Eye: Present: EOMI ENT: Present: mucous membranes moist - Routine Neck Exam Absent: JVD - Routine Respiratory Exam Present: dyspnea, decreased breath sounds - Routine Cardiovascular Exam Present: RRR, no murmur. Absent: gallop, rubs - Routine Abdominal Exam Present: soft (Morbidly obese), normoactive bowel sounds - Routine Extremities Exam Present: edema (1-2+BLE), pulses intact. Absent: cyanosis - Routine Skin Exam Present: intact, dry, warm. Absent: cyanosis, erythema - Routine Neurological Exam Present: alert, oriented X3, normal speech - Routine Psychiatric Exam Present: normal affect, cooperative Results 01/26/18 04:01 01/26/18 04:01 Cardiac Enzymes 01/25/18 01/26/18 Range/Units 21:28 04:01 Troponin I 0.023 0.016 (0-0.12) ng/ml CBC 01/26/18 Range/Units 04:01 WBC 7.0 D (4.5-11.0) T/MM3 RBC 3.87 L (4.00-5.20) M/MM3 Hgb 11.4 L (12-16) GM/DL Hct 35.8 L (36-46) % Plt Count 181 (130-400) T/MM3 Neut # (Auto) Not performed Lymph # (Auto) Not performed Mayes # (Auto) Not performed Eos # (Auto) Not performed Baso # (Auto) Not performed Comprehensive Metabolic Panel 01/26/18 Range/Units 04:01 Sodium 144 D (134-144) MEQ/L Potassium 4.4 D (3.6-5) MEQ/L Chloride 106 (98-107) MEQ/L Carbon Dioxide 26 (22-30) MEQ/L BUN 33.0 H (7-17) MG/DL Creatinine 1.1 D (0.7-1.2) mg/dL Glucose 267 H (65-110) MG/DL Calcium 8.6 (8.4-10.2) MG/DL Intake and Output 01/26/18 01/26/18 01/26/18 06:59 14:59 22:59 Intake Total 500 / 500 Output Total 350 / 350 300 / 300 Balance 150 / 150 -300 / -300 Intake: Oral 500 / 500 Output: Urine 300 / 300 Urine Amount (Catheter) 350 / 350 Other: Urine Appearance Clear Clear Urine Color Yellow Light Ailyn - Imaging and Cardiology Echo: pending - EKG Interpretation EKG: sinus rhythm EKG interpretations - EKG EKG results cardiology: sinus rhythm (no ischemia.) Assessment and Plan - Assessment and Plan (1) Acute and chronic respiratory failure with hypoxia Current visit: Yes Status: Acute On 2L O2, not on chronic O2 at home. RCAT with NEB tx. Bipap at [facility]. Primary team managing. (2) Atrial flutter Current visit: No Status: Acute Currently NSR. On Flecainide 150mg PO BID per . DANNY 4, will resume Eliquis after assess if need for HC pending echo results. Educate on fall prevention/safety. Monitor on tele. (3) HTN (hypertension) Problem details: Borderline control. Current visit: No Status: Chronic BP on higher side. D/C Chlorthalidone 2/2 hypokalemia. D/C Metoprolol 50mg PO BID, starting Coreg 12.5mg PO BID. Con't Cozaar 100mg PO Daily and Norvasc 10mg PO Daily. Monitor. (4) Hypokalemia Current visit: Yes Status: Acute K+4.4(3.2). Has scheduled 40mEQ KCL PO TID. Hold chlorthalidone. Monitor closely with IV Lasix. (5) Hyperlipidemia Problem details: On a statin. Current visit: No Status: Chronic Con't statin. No ASA at this time as on Eliquis and no dx of CAD. (6) Diabetes mellitus type 2, uncontrolled, without complications Problem details: Poor control. Needs more bolus and less basal insulin. Also needs to use carb ratio for bolusing. Current visit: No Status: Chronic Per primary team. (7) Hypothyroidism Problem details: Clinically euthyroid, but chemically over-replaced. Needs to reduce dose a bit. Current visit: No Status: Chronic Con't home Levothyroxine. Med management. (8) DVT prophylaxis Current visit: Yes Status: Acute SCD's. Holding Eliquis. (9) CHF (congestive heart failure) Current visit: Yes Status: Acute Echo has been completed, Dr. Quintero will review. Will likely plan HC as outpt once pt improved, will determine after results of echo. No CP, troponin negative x3, no ischemic changes per EKG. LE edema, increased O2 requirements. UOP 1200 overnight with extra 80mg IV Lasix yesterday. BNP 5040 yesterday. Holding PO Lasix, giving another 80mg IV Lasix now and in AM/ Assess response to Lasix tomorrow and repeat BNP. 2L/24h fluid restriction, daily wts. Monitor wts, labs and I&O's (has wyatt). - Assessment and Plan Ailyn Gale APRN assessed patient independently and full assessment and plan discussed verbally with who is in agreement with all of the above. Hospital Course Summary Disclaimer: The visit summary below is not to be considered part of the above Progress Note. Hospital Course: Impression Hypoxia with exertion- Decreased to 80% Severe dyspnea with exertion- tachypnea- 48/minute Leukocytosis with fever- POA Hypernatremia-POA- 151 Hypokalemia- POA- 3.2 Asthma Questionable COPD Obstructive sleep apnea- Uses Bi-pap with O2 at night Type II diabetes Hypertension Paroxysmal atrial fibrillation/flutter Hyperlipidemia Hypothyroidism Depression Plan Initially patient was admitted as observation, however, given significant hypoxia with minimal exertion change patient to inpatient status and admit her to the hospitalist services under the care of Dr. Graves Exact etiology of hypoxia is unclear as it could be multiply factorial. Cardiology consultation placed to Dr Alvarez as he has followed in the outpt setting. She is scheduled for stress test in the beginning of February. It is recommended by pulmonology that if patient does obtain a stress test that she have Right and Left sided procedure to evaluate pulmonary pressure. Patient placed to Dr. Hurley. Did speak with him on the phone. He will see patient on Sunday01/27/18. Given mild fever will obtain a viral respiratory panel to rule out infectious etiology. Patient on scheduled breathing treatments including DuoNeb 4 times a day and Pulmicort twice a day Will hold off on starting IV fluids at this point, will discuss further with attending. Patient may be having some fluid overload given increased weight and questionable edema on chest x-ray. Patient does routinely takes Lasix 80 mg- Sunday, Sunday and Sunday for diuresis. Will discuss with attending. Will monitor Accu-Cheks, patient did have mild hypoglycemia into the 50s while in the emergency room. Will discuss insulin regimen Since she is in Sinus Rhythm Cardiology recommends stopping Eliquis at this time in case patient needs cardiac catheter in the near future Cardiology also requests obtaining echocardiogram, serial troponins, and giving a one-time dose of Lasix 80 milligrams IV Will replace potassium orally- 40 MEQ now and scheduled TID Urinalysis reviewed does reveal leukocyte esterase with WBCs. However, there is external squamous epithelial Cells. She is asymptomatic, will wait and review Urine culture. Place schneider cath to monitor urinary output Check CBC and BMP tomorrow morning to follow blood counts, renal function and electrolytes Patient does wish to be a full code and this order is written Will discuss further orders and plan of care with attending, Dr. Graves At time of discharge medical care will return to primary care provider, Dr Thayer 01/26 Exact etiology of hypoxia is unclear as it could be multiply factorial - ashtma/ copd, volume overload, OHS Cardiology consultation placed to Dr Alvarez as he has followed in the outpt setting. She is scheduled for stress test in the beginning of February. It is recommended by pulmonology that if patient does obtain a stress test that she have Right and Left sided procedure to evaluate pulmonary pressure. Patient placed to Dr. Hurley. Did speak with him on the phone. He will see patient on Sunday01/27/18. RVP negative Patient on scheduled breathing treatments including DuoNeb 4 times a day and Pulmicort twice a day s/p lasix yesterday, now on home dose Continue steroids. blood sugars increased - takes tresiba 130 units QHS, regular insulin around 100 units daily divided TID, and metformin at home. On latus 90 QHS, ISS, and metformin here. Will hold metformin in case of need for contrast. Add mealtime insulin at 15 units TID. Since she is in Sinus Rhythm Cardiology recommends stopping Eliquis at this time in case patient needs cardiac catheter in the near future Cardiology also requeted on admission obtaining echocardiogram, serial troponins (0.23), and giving a one-time dose of Lasix 80 milligrams IV - patient down 700 since admission. echo pending. will add troponin to am labs to tred Urinalysis reviewed does reveal leukocyte esterase with WBCs. However, there is external squamous epithelial Cells. She is asymptomatic, urine culture normal lulú. Place schneider cath to monitor urinary output SCDs to bilateral lower extremity for DVT prophylaxis Check CBC and BMP tomorrow morning to follow blood counts, renal function and electrolytes Patient does wish to be a full code and this order is written At time of discharge medical care will return to primary care provider, Dr Thayer Get exercise oximetry today. Dr. Hurley to see tomorrow. <Kenny Alvarez - Last Filed: 01/28/18 13:15> [facility] Medical History (Last Updated 01/07/18 @ 08:35 by Jose D Pham MD) Diabetes mellitus type 2, uncontrolled, without complications (Chronic Medical ~ 1977) Poor control. Needs more bolus and less basal insulin. Also needs to use carb ratio for bolusing. HTN (hypertension) (Chronic Medical) Borderline control. Hyperlipidemia (Chronic Medical) On a statin. Hypothyroidism (Chronic Medical ~1977) Clinically euthyroid, but chemically over-replaced. Needs to reduce dose a bit. Afib (Chronic Medical) Depression (Chronic Medical) Asthma (Chronic Medical) Family History: Family History (Last Reviewed 01/07/18 @ 08:12 by RICARDO Fay) Mother Lupus Diabetes Heart disease Father Heart disease Skin cancer Dementia Brother Skin cancer Afib H/O heart bypass surgery Maternal Grandmother Heart disease Maternal Grandfather Cancer Paternal Grandmother Dementia Paternal Grandfather Stroke Exam Vital signs: Temperature 96.1 F L 01/28/18 07:14 Pulse Rate 55 L 01/28/18 08:59 Respiratory Rate 20 01/28/18 12:03 Blood Pressure 154/70 H 01/28/18 07:14 Pulse Oximetry 98 01/28/18 12:03 Results 01/27/18 04:08 01/28/18 04:07 Comprehensive Metabolic Panel 01/27/18 01/28/18 Range/Units 13:05 04:07 Sodium 146 H 143 (134-144) MEQ/L Potassium 4.2 4.0 (3.6-5) MEQ/L Chloride 105 104 (98-107) MEQ/L Carbon Dioxide 27 27 (22-30) MEQ/L BUN 54.0 H* 52.0 H* (7-17) MG/DL Creatinine 1.4 H D 1.2 D (0.7-1.2) mg/dL Glucose 93 140 H (65-110) MG/DL Calcium 9.1 9.0 (8.4-10.2) MG/DL Intake and Output 01/27/18 01/28/18 01/28/18 22:59 06:59 14:59 Intake Total 540 / 540 100 / 100 360 / 360 Output Total 2049 900 / 900 Balance -1510 / -1510 -800 / -800 360 / 360 Intake: Oral 540 / 540 100 / 100 360 / 360 Output: Urine Amount (Catheter) 2049 900 / 900 Other: Urine Appearance Clear Clear Urine Color Yellow Yellow Stool Color Brown Stool Consistency Soft Formed Size of Bowel Movement Large # Bowel Movements 1 Weight 129 kg Patient Weight 01/29/18 06:59 Weight 129 kg Assessment and Plan - Attestation Attestation Narrative: 01/28/18 13:15 Recommendation I agree with the above and I am involved in the formulation of the patient's plan of care. 01/28/18 13:15 - Assessment and Plan (1) HTN (hypertension) Problem details: Borderline control. Current visit: No Status: Chronic (2) Hyperlipidemia Problem details: On a statin. Current visit: No Status: Chronic (3) Hypothyroidism Problem details: Clinically euthyroid, but chemically over-replaced. Needs to reduce dose a bit. Current visit: No Status: Chronic (4) Atrial flutter Current visit: No Status: Acute (5) Diabetes mellitus type 2, uncontrolled, without complications Problem details: Poor control. Needs more bolus and less basal insulin. Also needs to use carb ratio for bolusing. Current visit: No Status: Chronic (6) Acute and chronic respiratory failure with hypoxia Current visit: Yes Status: Acute (7) Hypokalemia Current visit: Yes Status: Acute (8) DVT prophylaxis Current visit: Yes Status: Acute (9) CHF (congestive heart failure) Current visit: Yes Status: Acute Hospital Course Summary Disclaimer: The visit summary below is not to be considered part of the above Progress Note.
[2018-01-26] MEDS ORDERED: FUROSEMIDE 100 MG/10 ML INJECTION IVP SCH (21:09)
[2018-01-26] MEDS: PRAVASTATIN 40 MG TABLET PO SCH (22:04)
[2018-01-26] MEDS: TERAZOSIN 5 MG CAPSULE PO SCH (22:04)
[2018-01-26] MEDS: INSULIN DETEMIR 100unit/ml INJECTION SQ SCH (22:05)
[2018-01-27] MEDS: LEVOTHYROXINE 200 MCG TABLET PO SCH (06:05)
[2018-01-27] MEDS: BRIMONIDINE/TIMOLOL 0.2%-0.5% EYE DROPS 5ml LEFT EYE SCH ×2 (06:05→19:59)
[2018-01-27] MEDS: ALBUTEROL/IPRATROPIUM 2.5mg-0.5mg/3ml NEB AEROSOL SCH ×4 (06:20→19:12)
[2018-01-27] MEDS: BUDESONIDE INH.SOLN 0.5mg/2ml NEB AEROSOL SCH ×2 (06:21→19:12)
[2018-01-27] MEDS ORDERED: FUROSEMIDE 100 MG/10 ML INJECTION IVP ONE ×2 (06:30→09:00)
[2018-01-27] MEDS: INSULIN REGULAR, HUMAN 100 UNIT/ML INJECTION SQ SCH ×3 (08:14→17:49)
[2018-01-27] MEDS: PredniSONE 20 MG TABLET PO SCH (08:20)
[2018-01-27] MEDS: CARVEDILOL 12.5 MG TABLET PO SCH ×2 (08:20→17:49)
[2018-01-27] MEDS: AMLODIPINE 10 MG TABLET PO SCH (08:20)
[2018-01-27] MEDS: ALLOPURINOL 300 MG TABLET PO SCH (08:20)
[2018-01-27] MEDS: FLECAINIDE 100 MG TABLET PO SCH (08:21)
[2018-01-27] MEDS: METFORMIN 500 MG TABLET PO SCH ×2 (08:21→08:44)
[2018-01-27] MEDS: ROPINIROLE 2 MG TABLET PO SCH (08:21)
[2018-01-27] MEDS: MONTELUKAST 10 MG TABLET PO SCH (08:21)
[2018-01-27] MEDS: FLUoxetine 20 MG CAPSULE PO SCH (08:22)
[2018-01-27] MEDS: FLUTICASONE NASAL SPRAY 50mcg EA NOSTRIL SCH ×3 (08:22→20:00)
--- NOTE | 2018-01-27 09:45 | XRay Report ---
Indication: CHF PROCEDURE: XR chest 1V: Encounter: Initial Comparison: January 25, 2018 Findings: Prior pulmonary edema has improved. There is a small left effusion remaining. No pneumothorax or new infiltrate. Heart size and mediastinal contours are stable. Impression: Improving CHF. .
--- NOTE | 2018-01-27 10:52 | Progress Note ---
- Date 01/27/18 Subjective: Remains on 2 liters oxygen. Says she has been urinating a lot since her lasix was given. No other new issues. Objective Vital signs: Temperature 97.2 F 01/27/18 08:00 Pulse Rate 58 L 01/27/18 08:00 Respiratory Rate 18 01/27/18 10:06 Blood Pressure 135/63 01/27/18 08:00 Pulse Oximetry 99 01/27/18 10:06 Height/Weight/BMI: Weight 127.8 kg - Constitutional Present: no acute distress - Routine Respiratory Exam Comments: diminished in bases - Routine Cardiovascular Exam Present: RRR - Routine Abdominal Exam Present: soft, normoactive bowel sounds, non distended, non tender - Routine Extremities Exam Present: no edema - Routine Musculoskeletal Exam Musculoskeletal: Present: no clubbing or cyanosis - Routine Skin Exam Present: intact, dry, warm - Routine Neurological Exam Present: alert, oriented X3, CN II-XII intact Results - Labs CBC & Chem 7: 01/27/18 04:08 01/27/18 04:08 Assessment and Plan (1) Exertional dyspnea Current visit: Yes Status: Acute Assessment and Plan: Impression Acute hypoxic respiratory failure Exertional hypoxia- Decreased to 80% Severe dyspnea with exertion- tachypnea- 48/minute CHF - RLL 01/25/18 Leukocytosis with fever- POA Hypernatremia-POA- 151 Hypokalemia- POA- 3.2 Asthma Questionable COPD Obstructive sleep apnea- Uses Bi-pap with O2 at night Type II diabetes Hypertension Paroxysmal atrial fibrillation/flutter Hyperlipidemia Hypothyroidism Depression Plan Exact etiology of hypoxia is unclear as it could be multiply factorial - ashtma/ copd, volume overload, OHS Cardio consulted - to have stress in early february. Hold Eliquis. Gave another 80mg IV lasix dose last night and this morning. Has 1550 out total so far. polm to see today. serial troponins negative RVP negative RCAT, oxygen Continue prednisone blood sugars increased - takes tresiba 130 units QHS, regular insulin around 100 units daily divided TID, and metformin at home. On latus 90 QHS, novolog 15 TID WM, and ISS here. Will hold metformin in case of need for contrast and/or in light of increased creatinine and aggressive diuresis. Creatinine to 1.3 today - monitor closely with diuresis. Held losartan, metformin, and home potassium supplement. Recheck BMP at 1300 to monitor creatinine and replace K if needed. - Physician Narrative Narrative: Date: 01/27/18 Time: 1044 Hospital Course Summary Disclaimer: The visit summary below is not to be considered part of the above Progress Note. Hospital Course: Impression Hypoxia with exertion- Decreased to 80% Severe dyspnea with exertion- tachypnea- 48/minute Leukocytosis with fever- POA Hypernatremia-POA- 151 Hypokalemia- POA- 3.2 Asthma Questionable COPD Obstructive sleep apnea- Uses Bi-pap with O2 at night Type II diabetes Hypertension Paroxysmal atrial fibrillation/flutter Hyperlipidemia Hypothyroidism Depression Plan Initially patient was admitted as observation, however, given significant hypoxia with minimal exertion change patient to inpatient status and admit her to the hospitalist services under the care of Dr. Graves Exact etiology of hypoxia is unclear as it could be multiply factorial. Cardiology consultation placed to Dr Alvarez as he has followed in the outpt setting. She is scheduled for stress test in the beginning of February. It is recommended by pulmonology that if patient does obtain a stress test that she have Right and Left sided procedure to evaluate pulmonary pressure. Patient placed to Dr. Hurley. Did speak with him on the phone. He will see patient on Sunday01/27/18. Given mild fever will obtain a viral respiratory panel to rule out infectious etiology. Patient on scheduled breathing treatments including DuoNeb 4 times a day and Pulmicort twice a day Will hold off on starting IV fluids at this point, will discuss further with attending. Patient may be having some fluid overload given increased weight and questionable edema on chest x-ray. Patient does routinely takes Lasix 80 mg- Sunday, Sunday and Sunday for diuresis. Will discuss with attending. Will monitor Accu-Cheks, patient did have mild hypoglycemia into the 50s while in the emergency room. Will discuss insulin regimen Since she is in Sinus Rhythm Cardiology recommends stopping Eliquis at this time in case patient needs cardiac catheter in the near future Cardiology also requests obtaining echocardiogram, serial troponins, and giving a one-time dose of Lasix 80 milligrams IV Will replace potassium orally- 40 MEQ now and scheduled TID Urinalysis reviewed does reveal leukocyte esterase with WBCs. However, there is external squamous epithelial Cells. She is asymptomatic, will wait and review Urine culture. Place schneider cath to monitor urinary output Check CBC and BMP tomorrow morning to follow blood counts, renal function and electrolytes Patient does wish to be a full code and this order is written Will discuss further orders and plan of care with attending, Dr. Graves At time of discharge medical care will return to primary care provider, Dr Thayer 01/26 Exact etiology of hypoxia is unclear as it could be multiply factorial - ashtma/ copd, volume overload, OHS Cardiology consultation placed to Dr Alvarez as he has followed in the outpt setting. She is scheduled for stress test in the beginning of February. It is recommended by pulmonology that if patient does obtain a stress test that she have Right and Left sided procedure to evaluate pulmonary pressure. Patient placed to Dr. Hurley. Did speak with him on the phone. He will see patient on Sunday01/27/18. RVP negative Patient on scheduled breathing treatments including DuoNeb 4 times a day and Pulmicort twice a day s/p lasix yesterday, now on home dose Continue steroids. blood sugars increased - takes tresiba 130 units QHS, regular insulin around 100 units daily divided TID, and metformin at home. On latus 90 QHS, ISS, and metformin here. Will hold metformin in case of need for contrast. Add mealtime insulin at 15 units TID. Since she is in Sinus Rhythm Cardiology recommends stopping Eliquis at this time in case patient needs cardiac catheter in the near future Cardiology also requeted on admission obtaining echocardiogram, serial troponins (0.23), and giving a one-time dose of Lasix 80 milligrams IV - patient down 700 since admission. echo pending. will add troponin to am labs to tred Urinalysis reviewed does reveal leukocyte esterase with WBCs. However, there is external squamous epithelial Cells. She is asymptomatic, urine culture normal lulú. Place schneider cath to monitor urinary output SCDs to bilateral lower extremity for DVT prophylaxis Check CBC and BMP tomorrow morning to follow blood counts, renal function and electrolytes Patient does wish to be a full code and this order is written At time of discharge medical care will return to primary care provider, Dr Thayer Get exercise oximetry today. Dr. Hurley to see tomorrow. 01/27 Exact etiology of hypoxia is unclear as it could be multiply factorial - ashtma/ copd, volume overload, OHS Cardio consulted - to have stress in early february. Hold Eliquis. Gave another 80mg IV lasix dose last night and this morning. Has 1550 out total so far. polm to see today. serial troponins negative RVP negative RCAT, oxygen Continue prednisone blood sugars increased - takes tresiba 130 units QHS, regular insulin around 100 units daily divided TID, and metformin at home. On latus 90 QHS, novolog 15 TID WM, and ISS here. Will hold metformin in case of need for contrast and/or in light of increased creatinine and aggressive diuresis. Creatinine to 1.3 today - monitor closely with diuresis. Held losartan, metformin, and home potassium supplement. Recheck BMP at 1300 to monitor creatinine and replace K if needed.
[2018-01-27] MEDS ORDERED: PNEUMOCOCCAL VAC ADMIN CHARGE INJ ONE (14:00)
--- NOTE | 2018-01-27 15:04 | Pulmonology Consult Note ---
History of Present Illness Consult date: 01/27/18 Requesting physician: Francheska Graves Reason for consult: dyspnea Chief complaint: short of breath History of present illness: HPI: Amaris is a 67 year old lady whom I met in the office recently. She states that she has had shortness of breath for over 10 years. She remembers walking up stairs at work every day and having to wait 10-15 minutes before she could have a conversation. She has been told she has obstructive airways disease in the past and has been on bronchodilators. She has ELIZABETH and is on BIPAP 20/16 with 2.5 lpm O2 bled in. She is very compliant with that. Per the admission history: In December 2017 Patient was admitted with atrial flutter. At that time she was placed on Eliquis. She has been seen in the outpatient setting by both Dr. Alvarez and Dr Guevara. Patient was scheduled for an outpatient cardioversion today by Dr. Guevara however, upon arrival, she was found to be in normal sinus rhythm. Staff noted her to be having increased dyspnea and patient was directed to see her primary care provider. She then presented to see Dr. Thayer at his office. She was found to be dyspneic with room air saturations dipping into the 80s. Patient was instructed to present to the emergency room for acute evaluation. Upon arrival to the emergency room acute evaluation was performed. Patient was to Breathing 28-40 times a minute and on arrival oxygen saturations were 84%. She had a temperature of 100.1. CBC revealed mild leukocytosis with a white count of 12.3. Sodium is elevated at 151, and potassium slightly low at 3.2. Troponin was negative at 0.037, proBNP 5040. Lead EKG revealed regular sinus rhythm. Chest x-ray had been done earlier today in the outpatient setting by Dr. Thayer, which showed mild congestive failure, otherwise unremarkable. Given her severe dyspnea with tachpnea, exertional hypoxia. The hospitalist services were contacted and septa patient for admission for further evaluation and treatment. Patient reports since hospitalization in December. She has had several medication changes. She reports that she initially was taken off of flecainide 50 milligrams, however, then placed back on it by Dr. Guevara at 150 milligrams a day. She is also started on Eliquis for anticoagulation given findings of atrial fibrillation. She reports that she has had ongoing dyspnea for the past 3 weeks, however, worse over the last week to the point that she is unable to ambulate even short distances without severe dyspnea. She notes over the last 24 hours. She is having significant conversational dyspnea to the point she is unable to speak 4-5 words at a time without needing to breathe. She does note last night she had a mild fever, however, denies any productive coughing. He does chronically use BiPAP with oxygen at nighttime only. She has been seen in the past by Dr. Hurley, given her underlying lung disease of asthma. She reports that she has been told she possibly had an underlying COPD. She was a smoker for 6 weeks. However, then quit approximately 40 years ago. She is noted to be at 8.5 pounds since 12/13/17. We did discuss advanced directives and she does wish to be a full code Review of Systems All systems PM: 10-point ROS was reviewed, no additional complaints except: Respiratory: Present: dyspnea, dyspnea on exertion, mild cough CV: denies chest pain ABD: no nausea vomiting : no dysuria SKIN: no edema Past Medical History Patient Stated Medical History Paroxysmal atrial fibrillation/flutter Asthma/COPD Hypertension Type II diabetes Hyperlipidemia. Hypothyroidism Depression GERD [facility] Medical History (Last Updated 01/07/18 @ 08:35 by Jose D Pham MD) Diabetes mellitus type 2, uncontrolled, without complications (Chronic Medical ~ 1977) Poor control. Needs more bolus and less basal insulin. Also needs to use carb ratio for bolusing. HTN (hypertension) (Chronic Medical) Borderline control. Hyperlipidemia (Chronic Medical) On a statin. Hypothyroidism (Chronic Medical ~1977) Clinically euthyroid, but chemically over-replaced. Needs to reduce dose a bit. Afib (Chronic Medical) Depression (Chronic Medical) Asthma (Chronic Medical) Surgical History: EYE SURGERY FOR GLAUCOMA: 11/2015, 02/2016, tonsillectomy and adenoidectomy-H6, cholecystectomy, right Achilles tendon repair, R tympanoplasty Family History: Family History (Last Reviewed 01/07/18 @ 08:12 by RICRADO Fay) Mother Lupus Diabetes Heart disease Father Heart disease Skin cancer Dementia Brother Skin cancer Afib H/O heart bypass surgery Maternal Grandmother Heart disease Maternal Grandfather Cancer Paternal Grandmother Dementia Paternal Grandfather Stroke Family History Updates: Reviewed - Social History Smoking status: Never smoker Substance use type: does not use Alcohol intake frequency: does not drink Housing: house Household members: family Current occupational status: retired Current residence: Apartment/Private Home Medications Home Medications Medication Instructions Recorded Confirmed Type Allopurinol [Zyloprim] 300 mg PO DAILY 12/12/17 01/25/18 History Amlodipine [Norvasc] 10 mg PO DAILY 12/12/17 01/25/18 History Chlorthalidone 25 mg PO DAILY 12/12/17 01/25/18 History EPINEPHrine Pen [Epipen] 0.3 mg IM O PRN 12/12/17 01/25/18 History FLUoxetine [Prozac] 20 mg PO DAILY 12/12/17 01/25/18 History Levothyroxine Sodium 200 mcg PO DAILY 12/12/17 01/25/18 History Montelukast [Singulair] 10 mg PO DAILY 12/12/17 01/25/18 History Pravastatin [Pravachol] 40 mg PO DAILY 12/12/17 01/25/18 History Ropinirole [Requip] 2 mg PO DAILY 12/12/17 01/25/18 History Terazosin HCl 10 mg PO HS 12/12/17 01/25/18 History Apixaban [Eliquis] 5 mg PO BID #60 tab 12/14/17 01/25/18 Rx Potassium Chloride [K-DUR 20 mEq 40 meq PO TIDWM #30 tab 12/14/17 01/25/18 Rx Tablet] Asmanex Twisthaler (Mometasone 110 2 puff INH BID 12/17/17 01/25/18 History mcg (30 doses) )breath activated powder inhaler Combigan (brimonidine 0.2 1 drop LEFT EYE Q12H 12/17/17 01/25/18 History %-timolol 0.5 %) eye drops Cozaar (losartan) 100 mg tablet 100 mg PO DAILY 12/17/17 01/25/18 History Mobic (Meloxicam) 7.5 mg tablet 15 mg PO QAM tab 12/17/17 01/25/18 History Spiriva Respimat (tiotropium 2 puff INH DAILY 12/17/17 01/25/18 History bromide) 2.5 mcg/actuation, inhalation Glucophage XR (metformin ER) 500 500 mg PO TID tab 01/07/18 01/25/18 History mg tablet, 24 hr Tresiba FlexTouch U-200 (insulin 90 unit SQ HS ml 01/07/18 01/25/18 History degludec) 200 unit/mL (3 mL) PEN Albuterol Sulfate [Proair Hfa] 1 puff INH Q4H PRN 01/25/18 01/25/18 History Fluticasone Nasal [place] [Flonase] 2 spray INTRANASAL BID 01/25/18 01/25/18 History Furosemide [Lasix 80 mg Tab] 80 mg PO MOWEFR 01/25/18 01/25/18 History Insulin Regular, Human [NovoLIN R] 90 - 110 unit SQ TIDWM 01/25/18 01/25/18 History Latanoprostene Bunod [Vyzulta] 1 drop EACH EYE HS 01/25/18 01/25/18 History Lopressor (metoprolol tartrate) 50 50 mg PO BID 30 Days #60 tab 01/25/18 History mg tablet flecainide 150 mg tablet 150 mg PO DAILY 30 Days #60 01/25/18 01/25/18 History Allergies Allergy/AdvReac Type Severity Reaction Status Date / Time Penicillins Allergy Severe anaphylaxis Verified 01/25/18 11:19 ciprofloxacin [From Cipro] Allergy Unknown Verified 01/25/18 11:19 labetalol Allergy Unknown Verified 01/25/18 11:19 levofloxacin [From Levaquin] Allergy Unknown Verified 01/25/18 11:19 lisinopril Allergy Unknown Verified 01/25/18 11:19 tramadol [From Ultram] Allergy Unknown Verified 01/25/18 11:19 Exam Vital signs: Temperature 97.2 F 01/27/18 08:00 Pulse Rate 60 01/27/18 08:40 Respiratory Rate 18 01/27/18 10:06 Blood Pressure 135/63 01/27/18 08:00 Pulse Oximetry 99 01/27/18 10:06 - Constitutional no acute distress, obese - Routine HEENT Exam Head: Present: normocephalic, atraumatic Nose: moist mucous membranes - Routine Neck Exam Present: supple. Absent: JVD - Routine Respiratory Exam Present: CTA bilaterally. Absent: wheezes, crackles - Routine Cardiovascular Exam Present: RRR - Routine Abdominal Exam Present: soft. Absent: guarding - Routine Extremities Exam Absent: cyanosis, clubbing, edema - Routine Skin Exam Present: intact. Absent: cyanosis, rash - Routine Neurological Exam Present: alert, oriented X3. Absent: motor deficit Results - Laboratory Findings CBC and BMP: 01/27/18 04:08 01/27/18 13:05 PT/INR, D-dimer D-Dimer 286 NG/ML (0-230) H 01/25/18 13:12 Abnormal lab findings: Abnormal Labs 01/26/18 01/26/18 01/27/18 04:01 04:01 04:08 WBC 13.7 H D RBC 3.87 L 3.62 L Hgb 11.4 L 10.9 L Hct 35.8 L 34.1 L RDW Std Deviation 50.7 H 50.7 H Neut % (Auto) 78.7 H Lymph % (Auto) 13.3 L Neut # (Auto) 10.8 H Dixon # (Auto) 1.1 H Neutrophils % (Manual) 79.0 H Lymphocytes % (Manual) 16.0 L Sodium BUN 33.0 H Creatinine BUN/Creatinine Ratio 30 H Glucose 267 H Calculated Osmolality 293 H NT-Pro-B Natriuret Pep 01/27/18 01/27/18 04:08 13:05 WBC RBC Hgb Hct RDW Std Deviation Neut % (Auto) Lymph % (Auto) Neut # (Auto) Dixon # (Auto) Neutrophils % (Manual) Lymphocytes % (Manual) Sodium 146 H BUN 52.0 H* D 54.0 H* Creatinine 1.3 H D 1.4 H D BUN/Creatinine Ratio 40 H 39 H Glucose 116 H Calculated Osmolality 288 H 296 H NT-Pro-B Natriuret Pep 3820 H - Diagnostic Findings Chest x-ray: report reviewed, image reviewed Assessment and Plan (1) Shortness of breath Status: Acute Assessment and plan: likely multifactorial and primarily related to pulmonary hypertension. contributing factors include obesity, ELIZABETH, atrial arrhythmias, obstructive airways disease. Will likely need continuous O2 to keep sat >90% with increased flow rates on exertion Current Visit: Yes (2) Asthma-COPD overlap syndrome Status: Acute Assessment and plan: asthma-chronic obstructive pulmonary disease overlap syndrome After reviewing this patient's subjective and objective findings, including history, examination, PFT, and imaging studies, I believe this patient has moderate Asthma/COPD with FEV1 64 %. GOLD Stage A and is Mild risk for exacerbation or complications related to COPD. Current respiratory examination is unremarkable and it does not appear that her obstructive disease is an exacerbating factor at this time. We will continue to treat this patient with a combination of: nebulized albuterol prn/ProAir prn. Spiriva as needed daily. 2. Exercise with O2 as tolerated 3. Keep Immunizations up to date 4. repeat PFT Current Visit: Yes (3) ELIZABETH (obstructive sleep apnea) Status: Acute Assessment and plan: Obstructive Sleep Apnea, severe . Treatment with BIPAP 20/16 with O2 at 2.5 lpm bled in. Compliance download was reviewed and is excellent, 100% compliance. check ABG to rule out hypercapnia I recommend changing mask and tubing every 6 months, change filters monthly. Current Visit: Yes - Time Spent With Patient Total time spent is greater than 50% in coordination of care (as documented) at patient's floor/unit and/or counseling patient: 25 - 35 minutes
--- NOTE | 2018-01-27 17:35 | Cardiology Progress Note ---
<Ailyn Gale R - Last Filed: 01/27/18 23:17> Subjective Interval history: CC: F/U CHF Ms. Werner is OOB sitting in her chair eating supper. States her breathing has improved, able to con't to conversive without dyspnea, states able to ambulate with 2L O2 and maintain O2 sats. Notes LE edema resolved and excellent UOP with schneider. She denies any CP, N/V, diaphoresis. States has seen and states needing a couple more test done and that may do while inpatient. States will eventually states would eventually like a left and right heart cath. Discussed echo and that will read tomorrow. Exam Vital signs: Temperature 96.2 F L 01/27/18 16:00 Pulse Rate 66 01/27/18 16:00 Respiratory Rate 20 01/27/18 16:00 Blood Pressure 146/67 H 01/27/18 16:00 Pulse Oximetry 98 01/27/18 16:00 Inpatient Medications: Generic Name Dose Route Start Last Admin Trade Name Devynq PRN Reason Stop Dose Admin Albuterol/Ipratropium 3 ml 01/25/18 17:00 01/27/18 15:29 Duoneb AEROSOL 3 ml QID MATTHEW Administration Allopurinol 300 mg 01/26/18 09:00 01/27/18 08:20 Zyloprim PO 300 mg DAILY MATTHEW Administration Amlodipine Besylate 10 mg 01/26/18 09:00 01/27/18 08:20 Norvasc PO 10 mg DAILY MATTHEW Administration Brimonidine/Timolol 1 drop 01/25/18 19:00 01/27/18 06:05 Combigan Eye Drops LEFT EYE 1 drop Q12H MATTHEW Administration Budesonide 0.5 mg 01/25/18 19:00 01/27/18 06:21 Pulmicort Inhalation AEROSOL 0.5 mg RTBID MATTHEW Administration Carvedilol 12.5 mg 01/27/18 08:00 01/27/18 08:20 Coreg PO 12.5 mg BIDWM MATTHEW Administration Flecainide Acetate 150 mg 01/26/18 09:00 01/27/18 08:21 Tambocor PO 150 mg DAILY MATTHEW Administration Fluoxetine HCl 20 mg 01/26/18 09:00 01/27/18 08:22 Prozac PO 20 mg DAILY MATTHEW Administration Fluticasone Propionate 2 spray 01/25/18 21:00 01/27/18 08:22 Flonase EA NOSTRIL 2 spray BID MATTHEW Administration Insulin Aspart 3 - 12 unit 01/25/18 20:59 01/26/18 22:29 Novolog SQ 2 unit SS PRN Administration Hyperglycemia Protocol Insulin Detemir 65 unit 01/27/18 21:00 Levemir SQ HS MATTHEW Insulin Human Regular 10 unit 01/27/18 17:00 Novolin R SQ AC30 MATTHEW Levothyroxine Sodium 200 mcg 01/26/18 06:30 01/27/18 06:05 Synthroid PO 200 mcg ACB MATTHEW Administration Losartan Potassium 100 mg 01/26/18 09:00 01/26/18 10:44 Cozaar PO 100 mg DAILY MATTHEW Administration Montelukast Sodium 10 mg 01/26/18 09:00 01/27/18 08:21 Singulair PO 10 mg DAILY MATTHEW Administration --Pom-- ( 1 drop 01/25/18 21:00 01/26/18 22:06 Latanoprostene Bunod PO Not Given [Vyzulta] 1 Drop) [facility] Potassium Chloride 40 meq 01/26/18 08:00 01/27/18 08:44 K-Dur 20 Meq Tablet PO Not Given TIDWM [facility] Pravastatin Sodium 40 mg 01/25/18 21:00 01/26/18 22:04 Pravachol PO 40 mg HS [facility] Administration Prednisone 40 mg 01/26/18 08:00 01/27/18 08:20 Deltasone 20 Mg PO 40 mg WB MATTHEW Administration Ropinirole HCl 2 mg 01/26/18 09:00 01/27/18 08:21 Requip PO 2 mg DAILY MATTHEW Administration Sodium Chloride 10 - 80 ml 01/25/18 12:55 01/25/18 18:41 Iv Flush IVF 10 ml PRN PRN Administration Flushing Sodium Chloride 10 - 80 ml 01/25/18 18:36 Iv Flush IVF PRN PRN Flushing Terazosin HCl 10 mg 01/25/18 21:00 01/26/18 22:04 Hytrin PO 10 mg HS MATTHEW Administration Discontinued Medications Generic Name Dose Route Start Last Admin Trade Name Freq PRN Reason Stop Dose Admin Albuterol/Ipratropium 3 ml 01/25/18 12:56 01/25/18 13:30 Duoneb AEROSOL 01/25/18 12:57 3 ml O ONE Administration Albuterol/Ipratropium 3 ml 01/25/18 13:52 01/25/18 14:00 Duoneb AEROSOL 01/25/18 13:53 3 ml O ONE Administration Apixaban 5 mg 01/25/18 21:00 Eliquis PO BID [facility] Brimonidine/Timolol 1 drop 01/25/18 17:45 01/25/18 19:01 Combigan Eye Drops EACH EYE Not Given Q12H [facility] Chlorthalidone 25 mg 01/26/18 09:00 01/26/18 10:39 Hygroton PO 25 mg DAILY MATTHEW Administration Furosemide 80 mg 01/25/18 17:57 01/25/18 18:41 Lasix 100 Mg/10 Ml IVP 01/25/18 17:58 80 mg ONE TIME ONE Administration Furosemide 80 mg 01/26/18 09:00 01/26/18 10:35 Lasix 80 Mg Tab PO 80 mg DAILY MATTHEW Administration Furosemide 80 mg 01/26/18 21:09 01/26/18 22:09 Lasix 100 Mg/10 Ml IVP 80 mg O MATTHEW Administration Furosemide 80 mg 01/27/18 09:00 01/27/18 08:22 Lasix 100 Mg/10 Ml IVP 01/27/18 09:01 80 mg O ONE Administration Furosemide 80 mg 01/27/18 06:30 Lasix 100 Mg/10 Ml IVP 01/27/18 06:31 O ONE Insulin Detemir 90 unit 01/25/18 21:00 01/26/18 22:05 Levemir SQ 90 unit HS [facility] Administration Insulin Human Regular 15 unit 01/26/18 17:00 01/27/18 13:48 Novolin R SQ Not Given AC30 MATTHEW Metformin HCl 500 mg 01/25/18 22:42 01/25/18 23:10 Glucophage PO 500 mg TID MATTHEW Administration Metformin HCl 500 mg 01/26/18 08:00 01/27/18 08:44 Glucophage PO Not Given TIDWM [facility] Methylprednisolone Sodium Succinate 125 mg 01/25/18 15:32 01/25/18 15:37 Solu-Medrol IVP 01/25/18 15:33 125 mg O ONE Administration Metoprolol Tartrate 50 mg 01/25/18 18:00 01/26/18 17:32 Lopressor PO 50 mg BIDWM MATTHEW Administration Non-Formulary Medication 90 unit 01/25/18 21:00 Insulin Degludec [Tresiba Flextouch U-200] SQ HS MATTHEW Non-Formulary Medication 500 mg 01/25/18 21:00 Metformin Hcl [Metformin Hcl Er] PO TID MATTHEW Pneumococcal Polyvalent Vaccine 0.5 ml 01/26/18 17:39 01/26/18 18:58 Pneumovax 23 IM 01/26/18 17:40 0.5 ml .ONCE ONE Administration Potassium Chloride 40 meq 01/25/18 17:32 01/25/18 18:41 K-Dur 20 Meq Tablet PO 01/25/18 17:33 40 meq O ONE Administration - Constitutional no acute distress - Routine HEENT Exam Head: Present: normocephalic Eye: Present: EOMI - Routine Respiratory Exam Present: decreased breath sounds. Absent: dyspnea, wheezes, crackles - Routine Cardiovascular Exam Present: RRR, no murmur. Absent: gallop, rubs - Routine Abdominal Exam Present: soft, normoactive bowel sounds, non distended Comments: Morbidly obese. - Routine Extremities Exam Present: no edema, pulses intact. Absent: cyanosis - Routine Skin Exam Present: intact, dry, warm. Absent: cyanosis, erythema - Routine Neurological Exam Present: alert, oriented X3, normal speech - Routine Psychiatric Exam Present: normal affect, cooperative. Absent: depressed - Urinary Catheter Management Urethral Cath placed during this visit: yes Insertion date: 01/25/18 Insertion time: 19:00 Results 01/27/18 04:08 01/27/18 13:05 Cardiac Enzymes 01/26/18 Range/Units 21:03 Troponin I < 0.012 (0-0.12) ng/ml CBC 01/27/18 Range/Units 04:08 WBC 13.7 H D (4.5-11.0) T/MM3 RBC 3.62 L (4.00-5.20) M/MM3 Hgb 10.9 L (12-16) GM/DL Hct 34.1 L (36-46) % Plt Count 220 (130-400) T/MM3 Neut # (Auto) 10.8 H (1.8-7.7) T/MM3 Lymph # (Auto) 1.8 (1-4.8) T/MM3 [place] # (Auto) 1.1 H (0-0.8) T/MM3 Eos # (Auto) 0.0 (0-0.5) T/MM3 Baso # (Auto) 0.0 (0-0.2) T/MM3 Comprehensive Metabolic Panel 01/27/18 01/27/18 Range/Units 04:08 13:05 Sodium 142 146 H (134-144) MEQ/L Potassium 4.6 4.2 (3.6-5) MEQ/L Chloride 106 105 (98-107) MEQ/L Carbon Dioxide 25 27 (22-30) MEQ/L BUN 52.0 H* D 54.0 H* (7-17) MG/DL Creatinine 1.3 H D 1.4 H D (0.7-1.2) mg/dL Glucose 116 H 93 (65-110) MG/DL Calcium 8.8 9.1 (8.4-10.2) MG/DL Intake and Output 01/27/18 01/27/18 01/27/18 06:59 14:59 22:59 Intake Total 200 / 200 590 / 590 Output Total 1000 / 1000 1500 / 1500 Balance -800 / -800 590 / 590 -1500 / -1500 Intake: Oral 200 / 200 590 / 590 Output: Urine Amount (Catheter) 1000 / 1000 1500 / 1500 Other: Urine Appearance Clear Clear Urine Color Pale Yellow Urine Odor Normal Stool Color Brown Stool Consistency Soft Formed Size of Bowel Movement Large # Bowel Movements 1 Weight 127.8 kg Patient Weight 01/28/18 06:59 Weight 127.8 kg - Imaging and Cardiology Echo: pending Assessment and Plan - Assessment and Plan (1) Acute and chronic respiratory failure with hypoxia Current visit: Yes Status: Acute On 2L O2, not on chronic O2 at home. RCAT with NEB tx. Bipap at [facility]. Primary team managing. (2) Atrial flutter Current visit: No Status: Acute Currently NSR. On Flecainide 150mg PO BID per . DANNY 4, will resume Eliquis after Dr. Alvarez assess if need for HC pending echo results. Educate on fall prevention/safety. Monitor on tele. (3) HTN (hypertension) Problem details: Borderline control. Current visit: No Status: Chronic BP somewhat improved this evening. D/C'd Chlorthalidone 2/2 hypokalemia. D/C Metoprolol 50mg PO BID, starting Coreg 12.5mg PO BID, may titrate up as indicated/tolerates. Con't Cozaar 100mg PO Daily and Norvasc 10mg PO Daily. Monitor. (4) Hypokalemia Current visit: Yes Status: Acute K+4.2 (4.4)(3.2). 40mEQ KCL PO TID. Con't to hold chlorthalidone. Monitor. (5) Hyperlipidemia Problem details: On a statin. Current visit: No Status: Chronic Con't statin. No ASA at this time as on Eliquis and no dx of CAD at this time. (6) Diabetes mellitus type 2, uncontrolled, without complications Problem details: Poor control. Needs more bolus and less basal insulin. Also needs to use carb ratio for bolusing. Current visit: No Status: Chronic Per primary team. (7) Hypothyroidism Problem details: Clinically euthyroid, but chemically over-replaced. Needs to reduce dose a bit. Current visit: No Status: Chronic Con't home Levothyroxine. Med management. (8) DVT prophylaxis Current visit: Yes Status: Acute SCD's. Holding Eliquis. (9) CHF (congestive heart failure) Current visit: Yes Status: Acute Echo has been completed, Dr. Alvarez will be reading tomorrow, will determine further plan of care based on results. No CP, troponin negative x3, no ischemic changes per EKG. Lasix 80mg IV x1 yesterday and again this AM with >1500cc UOP, LE edema resolved , dyspnea and O2 requirements improved. Cr, BUN and bicard trending up, pt on dry side. Hold on further diuretics until labs and Echo assessed tomorrow. BNP 5040 01/26/18, 3820 today. Con't 2L/24h fluid restriction, daily wts. - Attestation Attestation Narrative: (9) DVT prophylaxis Current visit: Yes Status: Acute - Assessment and Plan Ailyn Gale APRN assessed patient independently and full assessment and plan discussed verbally with who is in agreement with all of the above. 01/27/18 22:49 01/27/18 23:04 Hospital Course Summary Disclaimer: The visit summary below is not to be considered part of the above Progress Note. Hospital Course: Impression Hypoxia with exertion- Decreased to 80% Severe dyspnea with exertion- tachypnea- 48/minute Leukocytosis with fever- POA Hypernatremia-POA- 151 Hypokalemia- POA- 3.2 Asthma Questionable COPD Obstructive sleep apnea- Uses Bi-pap with O2 at night Type II diabetes Hypertension Paroxysmal atrial fibrillation/flutter Hyperlipidemia Hypothyroidism Depression Plan Initially patient was admitted as observation, however, given significant hypoxia with minimal exertion change patient to inpatient status and admit her to the hospitalist services under the care of Dr. Graves Exact etiology of hypoxia is unclear as it could be multiply factorial. Cardiology consultation placed to Dr Alvarez as he has followed in the outpt setting. She is scheduled for stress test in the beginning of February. It is recommended by pulmonology that if patient does obtain a stress test that she have Right and Left sided procedure to evaluate pulmonary pressure. Patient placed to Dr. Hurley. Did speak with him on the phone. He will see patient on Sunday01/27/18. Given mild fever will obtain a viral respiratory panel to rule out infectious etiology. Patient on scheduled breathing treatments including DuoNeb 4 times a day and Pulmicort twice a day Will hold off on starting IV fluids at this point, will discuss further with attending. Patient may be having some fluid overload given increased weight and questionable edema on chest x-ray. Patient does routinely takes Lasix 80 mg- Sunday, Sunday and Sunday for diuresis. Will discuss with attending. Will monitor Accu-Cheks, patient did have mild hypoglycemia into the 50s while in the emergency room. Will discuss insulin regimen Since she is in Sinus Rhythm Cardiology recommends stopping Eliquis at this time in case patient needs cardiac catheter in the near future Cardiology also requests obtaining echocardiogram, serial troponins, and giving a one-time dose of Lasix 80 milligrams IV Will replace potassium orally- 40 MEQ now and scheduled TID Urinalysis reviewed does reveal leukocyte esterase with WBCs. However, there is external squamous epithelial Cells. She is asymptomatic, will wait and review Urine culture. Place schneider cath to monitor urinary output Check CBC and BMP tomorrow morning to follow blood counts, renal function and electrolytes Patient does wish to be a full code and this order is written Will discuss further orders and plan of care with attending, Dr. Graves At time of discharge medical care will return to primary care provider, Dr Thayer 01/26 Exact etiology of hypoxia is unclear as it could be multiply factorial - ashtma/ copd, volume overload, OHS Cardiology consultation placed to Dr Alvarez as he has followed in the outpt setting. She is scheduled for stress test in the beginning of February. It is recommended by pulmonology that if patient does obtain a stress test that she have Right and Left sided procedure to evaluate pulmonary pressure. Patient placed to Dr. Hurley. Did speak with him on the phone. He will see patient on Sunday01/27/18. RVP negative Patient on scheduled breathing treatments including DuoNeb 4 times a day and Pulmicort twice a day s/p lasix yesterday, now on home dose Continue steroids. blood sugars increased - takes tresiba 130 units QHS, regular insulin around 100 units daily divided TID, and metformin at home. On latus 90 QHS, ISS, and metformin here. Will hold metformin in case of need for contrast. Add mealtime insulin at 15 units TID. Since she is in Sinus Rhythm Cardiology recommends stopping Eliquis at this time in case patient needs cardiac catheter in the near future Cardiology also requeted on admission obtaining echocardiogram, serial troponins (0.23), and giving a one-time dose of Lasix 80 milligrams IV - patient down 700 since admission. echo pending. will add troponin to am labs to tred Urinalysis reviewed does reveal leukocyte esterase with WBCs. However, there is external squamous epithelial Cells. She is asymptomatic, urine culture normal lulú. Place schneider cath to monitor urinary output SCDs to bilateral lower extremity for DVT prophylaxis Check CBC and BMP tomorrow morning to follow blood counts, renal function and electrolytes Patient does wish to be a full code and this order is written At time of discharge medical care will return to primary care provider, Dr Thayer Get exercise oximetry today. Dr. Hurley to see tomorrow. 01/27 Exact etiology of hypoxia is unclear as it could be multiply factorial - ashtma/ copd, volume overload, OHS Cardio consulted - to have stress in early february. Hold Eliquis. Gave another 80mg IV lasix dose last night and this morning. Has 1550 out total so far. polm to see today. serial troponins negative RVP negative RCAT, oxygen Continue prednisone blood sugars increased - takes tresiba 130 units QHS, regular insulin around 100 units daily divided TID, and metformin at home. On latus 90 QHS, novolog 15 TID WM, and ISS here. Will hold metformin in case of need for contrast and/or in light of increased creatinine and aggressive diuresis. Creatinine to 1.3 today - monitor closely with diuresis. Held losartan, metformin, and home potassium supplement. Recheck BMP at 1300 to monitor creatinine and replace K if needed. <Kenny Alvarez - Last Filed: 01/28/18 13:14> Exam Vital signs: Temperature 96.1 F L 01/28/18 07:14 Pulse Rate 55 L 01/28/18 08:59 Respiratory Rate 20 01/28/18 12:03 Blood Pressure 154/70 H 01/28/18 07:14 Pulse Oximetry 98 01/28/18 12:03 Inpatient Medications: Generic Name Dose Route Start Last Admin Trade Name Freq PRN Reason Stop Dose Admin Albuterol/Ipratropium 3 ml 01/25/18 17:00 01/28/18 12:03 Duoneb AEROSOL 3 ml QID MATTHEW Administration Allopurinol 300 mg 01/26/18 09:00 01/28/18 08:45 Zyloprim PO 300 mg DAILY MATTHEW Administration Amlodipine Besylate 10 mg 01/26/18 09:00 01/28/18 08:45 Norvasc PO 10 mg DAILY MATTHEW Administration Brimonidine/Timolol 1 drop 01/25/18 19:00 01/28/18 06:26 Combigan Eye Drops LEFT EYE 1 drop Q12H MATTHEW Administration Budesonide 0.5 mg 01/25/18 19:00 01/28/18 07:42 Pulmicort Inhalation AEROSOL 0.5 mg RTBID MATTHEW Administration Carvedilol 12.5 mg 01/27/18 08:00 01/28/18 08:44 Coreg PO 12.5 mg BIDWM MATTHEW Administration Flecainide Acetate 150 mg 01/26/18 09:00 01/28/18 08:44 Tambocor PO 150 mg DAILY MATTHEW Administration Fluoxetine HCl 20 mg 01/26/18 09:00 01/28/18 08:45 Prozac PO 20 mg DAILY MATTHEW Administration Fluticasone Propionate 2 spray 01/25/18 21:00 01/28/18 08:46 Flonase EA NOSTRIL 2 spray BID MATTHEW Administration Insulin Aspart 3 - 12 unit 01/25/18 20:59 01/27/18 21:11 Novolog SQ 7 unit SS PRN Administration Hyperglycemia Protocol Insulin Detemir 65 unit 01/27/18 21:00 01/27/18 21:10 Levemir SQ 65 unit HS MATTHEW Administration Insulin Human Regular 10 unit 01/27/18 17:00 01/28/18 12:23 Novolin R SQ 10 unit AC30 MATTHEW Administration Levothyroxine Sodium 200 mcg 01/26/18 06:30 01/28/18 06:26 Synthroid PO 200 mcg ACB MATTHEW Administration Losartan Potassium 100 mg 01/26/18 09:00 01/26/18 10:44 Cozaar PO 100 mg DAILY MATTHEW Administration Montelukast Sodium 10 mg 01/26/18 09:00 01/28/18 08:44 Singulair PO 10 mg DAILY MATTHEW Administration --Pom-- ( 1 drop 01/25/18 21:00 01/27/18 20:00 Latanoprostene Bunod PO Not Given [Vyzulta] 1 Drop) HS [facility] Potassium Chloride 40 meq 01/26/18 08:00 01/27/18 08:44 K-Dur 20 Meq Tablet PO Not Given TIDWM [facility] Pravastatin Sodium 40 mg 01/25/18 21:00 01/27/18 20:00 Pravachol PO Not Given HS [facility] Prednisone 40 mg 01/26/18 08:00 01/28/18 08:45 Deltasone 20 Mg PO 40 mg WB MATTHEW Administration Ropinirole HCl 2 mg 01/26/18 09:00 01/28/18 08:44 Requip PO 2 mg DAILY MATTHEW Administration Sodium Chloride 10 - 80 ml 01/25/18 18:36 Iv Flush IVF PRN PRN Flushing Terazosin HCl 10 mg 01/25/18 21:00 01/27/18 20:01 Hytrin PO Not Given HS [facility] Discontinued Medications Generic Name Dose Route Start Last Admin Trade Name Freq PRN Reason Stop Dose Admin Albuterol/Ipratropium 3 ml 01/25/18 12:56 01/25/18 13:30 Duoneb AEROSOL 01/25/18 12:57 3 ml O ONE Administration Albuterol/Ipratropium 3 ml 01/25/18 13:52 01/25/18 14:00 Duoneb AEROSOL 01/25/18 13:53 3 ml O ONE Administration Apixaban 5 mg 01/25/18 21:00 Eliquis PO BID [facility] Brimonidine/Timolol 1 drop 01/25/18 17:45 01/25/18 19:01 Combigan Eye Drops EACH EYE Not Given Q12H [facility] Chlorthalidone 25 mg 01/26/18 09:00 01/26/18 10:39 Hygroton PO 25 mg DAILY MATTHEW Administration Furosemide 80 mg 01/25/18 17:57 01/25/18 18:41 Lasix 100 Mg/10 Ml IVP 01/25/18 17:58 80 mg ONE TIME ONE Administration Furosemide 80 mg 01/26/18 09:00 01/26/18 10:35 Lasix 80 Mg Tab PO 80 mg DAILY [facility] Administration Furosemide 80 mg 01/26/18 21:09 01/26/18 22:09 Lasix 100 Mg/10 Ml IVP 80 mg O MATTHEW Administration Furosemide 80 mg 01/27/18 09:00 01/27/18 08:22 Lasix 100 Mg/10 Ml IVP 01/27/18 09:01 80 mg O ONE Administration Furosemide 80 mg 01/27/18 06:30 Lasix 100 Mg/10 Ml IVP 01/27/18 06:31 O ONE Insulin Detemir 90 unit 01/25/18 21:00 01/26/18 22:05 Levemir SQ 90 unit HS [facility] Administration Insulin Human Regular 15 unit 01/26/18 17:00 01/27/18 13:48 Novolin R SQ Not Given AC30 [facility] Metformin HCl 500 mg 01/25/18 22:42 01/25/18 23:10 Glucophage PO 500 mg TID [facility] Administration Metformin HCl 500 mg 01/26/18 08:00 01/27/18 08:44 Glucophage PO Not Given TIDWM [facility] Methylprednisolone Sodium Succinate 125 mg 01/25/18 15:32 01/25/18 15:37 Solu-Medrol IVP 01/25/18 15:33 125 mg O ONE Administration Metoprolol Tartrate 50 mg 01/25/18 18:00 01/26/18 17:32 Lopressor PO 50 mg BIDWM MATTHEW Administration Non-Formulary Medication 90 unit 01/25/18 21:00 Insulin Degludec [Tresiba Flextouch U-200] SQ HS MATTHEW Non-Formulary Medication 500 mg 01/25/18 21:00 Metformin Hcl [Metformin Hcl Er] PO TID MATTHEW Pneumococcal Polyvalent Vaccine 0.5 ml 01/26/18 17:39 01/26/18 18:58 Pneumovax 23 IM 01/26/18 17:40 0.5 ml .ONCE ONE Administration Potassium Chloride 40 meq 01/25/18 17:32 01/25/18 18:41 K-Dur 20 Meq Tablet PO 01/25/18 17:33 40 meq O ONE Administration Sodium Chloride 10 - 80 ml 01/25/18 12:55 01/25/18 18:41 Iv Flush IVF 10 ml PRN PRN Administration Flushing - Urinary Catheter Management Urethral Cath placed during this visit: no Results 01/27/18 04:08 01/28/18 04:07 Comprehensive Metabolic Panel 01/27/18 01/28/18 Range/Units 13:05 04:07 Sodium 146 H 143 (134-144) MEQ/L Potassium 4.2 4.0 (3.6-5) MEQ/L Chloride 105 104 (98-107) MEQ/L Carbon Dioxide 27 27 (22-30) MEQ/L BUN 54.0 H* 52.0 H* (7-17) MG/DL Creatinine 1.4 H D 1.2 D (0.7-1.2) mg/dL Glucose 93 140 H (65-110) MG/DL Calcium 9.1 9.0 (8.4-10.2) MG/DL Intake and Output 01/27/18 01/28/18 01/28/18 22:59 06:59 14:59 Intake Total 540 / 540 100 / 100 360 / 360 Output Total 2049 900 / 900 Balance -1510 / -1510 -800 / -800 360 / 360 Intake: Oral 540 / 540 100 / 100 360 / 360 Output: Urine Amount (Catheter) 2049 900 / 900 Other: Urine Appearance Clear Clear Urine Color Yellow Yellow Stool Color Brown Stool Consistency Soft Formed Size of Bowel Movement Large # Bowel Movements 1 Weight 129 kg Patient Weight 01/29/18 06:59 Weight 129 kg Assessment and Plan - Assessment and Plan (1) HTN (hypertension) Problem details: Borderline control. Current visit: No Status: Chronic (2) Hyperlipidemia Problem details: On a statin. Current visit: No Status: Chronic (3) Hypothyroidism Problem details: Clinically euthyroid, but chemically over-replaced. Needs to reduce dose a bit. Current visit: No Status: Chronic (4) Atrial flutter Current visit: No Status: Acute (5) Diabetes mellitus type 2, uncontrolled, without complications Problem details: Poor control. Needs more bolus and less basal insulin. Also needs to use carb ratio for bolusing. Current visit: No Status: Chronic (6) Acute and chronic respiratory failure with hypoxia Current visit: Yes Status: Acute (7) Hypokalemia Current visit: Yes Status: Acute (8) DVT prophylaxis Current visit: Yes Status: Acute (9) CHF (congestive heart failure) Current visit: Yes Status: Acute - Attestation Attestation Narrative: Recommendation I agree with the above and I am involved in the formulation of the patient's plan of care. 01/28/18 13:13 Hospital Course Summary Disclaimer: The visit summary below is not to be considered part of the above Progress Note.
[2018-01-27] MEDS: PRAVASTATIN 40 MG TABLET PO SCH ×2 (19:57→20:00)
[2018-01-27] MEDS: TERAZOSIN 5 MG CAPSULE PO SCH ×2 (19:58→20:01)
[2018-01-27] MEDS: LATANOPROSTENE BUNOD PO SCH ×2 (19:58→20:00)
[2018-01-27] MEDS: INSULIN DETEMIR 100unit/ml INJECTION SQ SCH (21:10)
[2018-01-27] MEDS: INSULIN ASPART 100unit/ml INJECTION SQ PRN (21:11)
[2018-01-28] MEDS: LEVOTHYROXINE 200 MCG TABLET PO SCH (06:26)
[2018-01-28] MEDS: BRIMONIDINE/TIMOLOL 0.2%-0.5% EYE DROPS 5ml LEFT EYE SCH ×2 (06:26→20:40)
[2018-01-28] MEDS: BUDESONIDE INH.SOLN 0.5mg/2ml NEB AEROSOL SCH ×2 (07:42→19:39)
[2018-01-28] MEDS: ALBUTEROL/IPRATROPIUM 2.5mg-0.5mg/3ml NEB AEROSOL SCH ×4 (07:43→19:39)
[2018-01-28] MEDS: INSULIN REGULAR, HUMAN 100 UNIT/ML INJECTION SQ SCH ×2 (08:22→12:23)
[2018-01-28] MEDS: FLECAINIDE 100 MG TABLET PO SCH (08:44)
[2018-01-28] MEDS: CARVEDILOL 12.5 MG TABLET PO SCH ×2 (08:44→17:47)
[2018-01-28] MEDS: ROPINIROLE 2 MG TABLET PO SCH (08:44)
[2018-01-28] MEDS: MONTELUKAST 10 MG TABLET PO SCH (08:44)
[2018-01-28] MEDS: ALLOPURINOL 300 MG TABLET PO SCH (08:45)
[2018-01-28] MEDS: FLUoxetine 20 MG CAPSULE PO SCH (08:45)
[2018-01-28] MEDS: AMLODIPINE 10 MG TABLET PO SCH (08:45)
[2018-01-28] MEDS: PredniSONE 20 MG TABLET PO SCH (08:45)
[2018-01-28] MEDS: FLUTICASONE NASAL SPRAY 50mcg EA NOSTRIL SCH ×2 (08:46→20:41)
--- NOTE | 2018-01-28 09:45 | Pulmonology Progress Note ---
Subjective Principal diagnosis: SOB Interval history: Pt currently in bed on RA. States no SOB noted at this time. + cough that started yesterday, no sputum. Exam Vital signs: Temperature 96.1 F L 01/28/18 07:14 Pulse Rate 55 L 01/28/18 08:59 Respiratory Rate 20 01/28/18 07:42 Blood Pressure 154/70 H 01/28/18 07:14 Pulse Oximetry 97 01/28/18 07:42 Inpatient Medications: Generic Name Dose Route Start Last Admin Trade Name Freq PRN Reason Stop Dose Admin Albuterol/Ipratropium 3 ml 01/25/18 17:00 01/28/18 07:43 Duoneb AEROSOL 3 ml QID MATTHEW Administration Allopurinol 300 mg 01/26/18 09:00 01/28/18 08:45 Zyloprim PO 300 mg DAILY MATTHEW Administration Amlodipine Besylate 10 mg 01/26/18 09:00 01/28/18 08:45 Norvasc PO 10 mg DAILY MATTHEW Administration Brimonidine/Timolol 1 drop 01/25/18 19:00 01/28/18 06:26 Combigan Eye Drops LEFT EYE 1 drop Q12H MATTHEW Administration Budesonide 0.5 mg 01/25/18 19:00 01/27/18 19:12 Pulmicort Inhalation AEROSOL 0.5 mg RTBID MATTHEW Administration Carvedilol 12.5 mg 01/27/18 08:00 01/28/18 08:44 Coreg PO 12.5 mg BIDWM MATTHEW Administration Flecainide Acetate 150 mg 01/26/18 09:00 01/28/18 08:44 Tambocor PO 150 mg DAILY MATTHEW Administration Fluoxetine HCl 20 mg 01/26/18 09:00 01/28/18 08:45 Prozac PO 20 mg DAILY MATTHEW Administration Fluticasone Propionate 2 spray 01/25/18 21:00 01/28/18 08:46 Flonase EA NOSTRIL 2 spray BID MATTHEW Administration Insulin Aspart 3 - 12 unit 01/25/18 20:59 01/27/18 21:11 Novolog SQ 7 unit SS PRN Administration Hyperglycemia Protocol Insulin Detemir 65 unit 01/27/18 21:00 01/27/18 21:10 Levemir SQ 65 unit HS MATTHEW Administration Insulin Human Regular 10 unit 01/27/18 17:00 01/28/18 08:22 Novolin R SQ 10 unit AC30 MATTHEW Administration Levothyroxine Sodium 200 mcg 01/26/18 06:30 01/28/18 06:26 Synthroid PO 200 mcg ACB MATTHEW Administration Losartan Potassium 100 mg 01/26/18 09:00 01/26/18 10:44 Cozaar PO 100 mg DAILY MATTHEW Administration Montelukast Sodium 10 mg 01/26/18 09:00 01/28/18 08:44 Singulair PO 10 mg DAILY MATTHEW Administration --Pom-- ( 1 drop 01/25/18 21:00 01/27/18 20:00 Latanoprostene Bunod PO Not Given [Vyzulta] 1 Drop) HS MATTHEW Potassium Chloride 40 meq 01/26/18 08:00 01/27/18 08:44 K-Dur 20 Meq Tablet PO Not Given TIDWM MATTHEW Pravastatin Sodium 40 mg 01/25/18 21:00 01/27/18 20:00 Pravachol PO Not Given HS MATTHEW Prednisone 40 mg 01/26/18 08:00 01/28/18 08:45 Deltasone 20 Mg PO 40 mg WB MATTHEW Administration Ropinirole HCl 2 mg 01/26/18 09:00 01/28/18 08:44 Requip PO 2 mg DAILY MATTHEW Administration Sodium Chloride 10 - 80 ml 01/25/18 18:36 Iv Flush IVF PRN PRN [place] Terazosin HCl 10 mg 01/25/18 21:00 01/27/18 20:01 Hytrin PO Not Given HS MATTHEW Discontinued Medications Generic Name Dose Route Start Last Admin Trade Name Freq PRN Reason Stop Dose Admin Albuterol/Ipratropium 3 ml 01/25/18 12:56 01/25/18 13:30 Duoneb AEROSOL 01/25/18 12:57 3 ml O ONE Administration Albuterol/Ipratropium 3 ml 01/25/18 13:52 01/25/18 14:00 Duoneb AEROSOL 01/25/18 13:53 3 ml O ONE Administration Apixaban 5 mg 01/25/18 21:00 Eliquis PO BID MATTHEW Brimonidine/Timolol 1 drop 01/25/18 17:45 01/25/18 19:01 Combigan Eye Drops EACH EYE Not Given Q12H MATTHEW Chlorthalidone 25 mg 01/26/18 09:00 01/26/18 10:39 Hygroton PO 25 mg DAILY MATTHEW Administration Furosemide 80 mg 01/25/18 17:57 01/25/18 18:41 Lasix 100 Mg/10 Ml IVP 01/25/18 17:58 80 mg ONE TIME ONE Administration Furosemide 80 mg 01/26/18 09:00 01/26/18 10:35 Lasix 80 Mg Tab PO 80 mg DAILY MATTHEW Administration Furosemide 80 mg 01/26/18 21:09 01/26/18 22:09 Lasix 100 Mg/10 Ml IVP 80 mg O MATTHEW Administration Furosemide 80 mg 01/27/18 09:00 01/27/18 08:22 Lasix 100 Mg/10 Ml IVP 01/27/18 09:01 80 mg O ONE Administration Furosemide 80 mg 01/27/18 06:30 Lasix 100 Mg/10 Ml IVP 01/27/18 06:31 O ONE Insulin Detemir 90 unit 01/25/18 21:00 01/26/18 22:05 Levemir SQ 90 unit HS [facility] Administration Insulin Human Regular 15 unit 01/26/18 17:00 01/27/18 13:48 Novolin R SQ Not Given AC30 MATTHEW Metformin HCl 500 mg 01/25/18 22:42 01/25/18 23:10 Glucophage PO 500 mg TID MATTHEW Administration Metformin HCl 500 mg 01/26/18 08:00 01/27/18 08:44 Glucophage PO Not Given TIDWM [facility] Methylprednisolone Sodium Succinate 125 mg 01/25/18 15:32 01/25/18 15:37 Solu-Medrol IVP 01/25/18 15:33 125 mg O ONE Administration Metoprolol Tartrate 50 mg 01/25/18 18:00 01/26/18 17:32 Lopressor PO 50 mg BIDWM [facility] Administration Non-Formulary Medication 90 unit 01/25/18 21:00 Insulin Degludec [Tresiba Flextouch U-200] SQ HS [facility] Non-Formulary Medication 500 mg 01/25/18 21:00 Metformin Hcl [Metformin Hcl Er] PO TID [facility] Pneumococcal Polyvalent Vaccine 0.5 ml 01/26/18 17:39 01/26/18 18:58 Pneumovax 23 IM 01/26/18 17:40 0.5 ml .ONCE ONE Administration Potassium Chloride 40 meq 01/25/18 17:32 01/25/18 18:41 K-Dur 20 Meq Tablet PO 01/25/18 17:33 40 meq O ONE Administration Sodium Chloride 10 - 80 ml 01/25/18 12:55 01/25/18 18:41 Iv Flush IVF 10 ml PRN PRN Administration Flushing - Constitutional no acute distress, morbidly obese, cooperative - Routine HEENT Exam Head: Present: normocephalic, atraumatic Eye: Present: EOMI, PERRL ENT: Present: mucous membranes moist - Routine Neck Exam Present: supple, full ROM, trachea midline - Routine Respiratory Exam Present: decreased breath sounds, wheezes. Absent: accessory muscle use, patient mechanically ventilated Comments: faint wheezes in bases - Routine Cardiovascular Exam Present: RRR, S1, S2, no murmur - Routine Abdominal Exam Present: soft, normoactive bowel sounds - Routine Extremities Exam Present: no edema, non tender, full ROM. Absent: cyanosis, clubbing, edema - Routine Back/Spine/Pelvis Exam Back/Spine: Present: full ROM - Routine Skin Exam Present: intact, dry - Routine Neurological Exam Present: alert, oriented X3, CN II-XII intact - Routine Psychiatric Exam Present: normal affect, normal thought process, good judgment - Urinary Catheter Management Urethral Cath placed during this visit: yes Urethral indwelling: Yes Insertion date: 01/25/18 Insertion time: 19:00 Results - Laboratory Findings Laboratory: Laboratory Results - last 48 hr 01/26/18 01/26/18 01/26/18 04:01 06:02 10:55 WBC RBC Hgb Hct MCV MCH MCHC RDW Std Deviation Plt Count MPV Immature Gran % (Auto) Neut % (Auto) Lymph % (Auto) [place] % (Auto) Eos % (Auto) Baso % (Auto) Neut # (Auto) Lymph # (Auto) [place] # (Auto) Eos # (Auto) Baso # (Auto) Abs Immat Gran (auto) Sample Site ABG pH ABG pCO2 ABG pO2 ABG HCO3 ABG Total CO2 ABG O2 Saturation ABG Base Excess Modified [place] Test O2 Delivery Method FiO2 (liters per min) Turbidity Sodium Potassium Chloride Carbon Dioxide Anion Gap BUN Creatinine GFR Calculation BUN/Creatinine Ratio Glucose Glucometer 228 238 Calculated Osmolality Calcium Magnesium Icterus Index Troponin I 0.016 NT-Pro-B Natriuret Pep Specimen Hemolysis < 15 01/26/18 01/26/18 01/26/18 17:01 21:03 22:13 WBC RBC Hgb Hct MCV MCH MCHC RDW Std Deviation Plt Count MPV Immature Gran % (Auto) Neut % (Auto) Lymph % (Auto) [place] % (Auto) Eos % (Auto) Baso % (Auto) Neut # (Auto) Lymph # (Auto) [place] # (Auto) Eos # (Auto) Baso # (Auto) Abs Immat Gran (auto) Sample Site ABG pH ABG pCO2 ABG pO2 ABG HCO3 ABG Total CO2 ABG O2 Saturation ABG Base Excess Modified [place] Test O2 Delivery Method FiO2 (liters per min) Turbidity Sodium Potassium Chloride Carbon Dioxide Anion Gap BUN Creatinine GFR Calculation BUN/Creatinine Ratio Glucose Glucometer 233 154 Calculated Osmolality Calcium Magnesium Icterus Index Troponin I < 0.012 NT-Pro-B Natriuret Pep Specimen Hemolysis < 15 01/27/18 01/27/18 01/27/18 04:08 04:08 06:10 WBC 13.7 H D RBC 3.62 L Hgb 10.9 L Hct 34.1 L MCV 94.2 MCH 30.1 MCHC 32.0 RDW Std Deviation 50.7 H Plt Count 220 MPV 10.8 Immature Gran % (Auto) 0.1 Neut % (Auto) 78.7 H Lymph % (Auto) 13.3 L [place] % (Auto) 7.7 Eos % (Auto) 0.1 Baso % (Auto) 0.1 Neut # (Auto) 10.8 H Lymph # (Auto) 1.8 [place] # (Auto) 1.1 H Eos # (Auto) 0.0 Baso # (Auto) 0.0 Abs Immat Gran (auto) 0.02 Sample Site ABG pH ABG pCO2 ABG pO2 ABG HCO3 ABG Total CO2 ABG O2 Saturation ABG Base Excess Modified Shaheen Test O2 Delivery Method FiO2 (liters per min) Turbidity < 20 Sodium 142 Potassium 4.6 Chloride 106 Carbon Dioxide 25 Anion Gap 11 BUN 52.0 H* D Creatinine 1.3 H D GFR Calculation 41 BUN/Creatinine Ratio 40 H Glucose 116 H Glucometer 76 Calculated Osmolality 288 H Calcium 8.8 Magnesium Icterus Index < 2 Troponin I NT-Pro-B Natriuret Pep 3820 H Specimen Hemolysis < 15 01/27/18 01/27/18 01/27/18 06:52 11:02 12:10 WBC RBC Hgb Hct MCV MCH MCHC RDW Std Deviation Plt Count MPV Immature Gran % (Auto) Neut % (Auto) Lymph % (Auto) [place] % (Auto) Eos % (Auto) Baso % (Auto) Neut # (Auto) Lymph # (Auto) [place] # (Auto) Eos # (Auto) Baso # (Auto) Abs Immat Gran (auto) Sample Site ABG pH ABG pCO2 ABG pO2 ABG HCO3 ABG Total CO2 ABG O2 Saturation ABG Base Excess Modified [place]en Test O2 Delivery Method FiO2 (liters per min) Turbidity Sodium Potassium Chloride Carbon Dioxide Anion Gap BUN Creatinine GFR Calculation BUN/Creatinine Ratio Glucose Glucometer 104 70 66 Calculated Osmolality Calcium Magnesium Icterus Index Troponin I NT-Pro-B Natriuret Pep Specimen Hemolysis 01/27/18 01/27/18 01/27/18 13:05 14:25 15:57 WBC RBC Hgb Hct MCV MCH MCHC RDW Std Deviation Plt Count MPV Immature Gran % (Auto) Neut % (Auto) Lymph % (Auto) [place] % (Auto) Eos % (Auto) Baso % (Auto) Neut # (Auto) Lymph # (Auto) [place] # (Auto) Eos # (Auto) Baso # (Auto) Abs Immat Gran (auto) Sample Site L radial ABG pH 7.460 H ABG pCO2 34 ABG pO2 110.7 H ABG HCO3 24.4 ABG Total CO2 25.4 ABG O2 Saturation 98.6 H ABG Base Excess 0.9 Modified Shaheen Test Positive O2 Delivery Method Cannula FiO2 (liters per min) 2 Turbidity < 20 Sodium 146 H Potassium 4.2 Chloride 105 Carbon Dioxide 27 Anion Gap 14 BUN 54.0 H* Creatinine 1.4 H D GFR Calculation 37 BUN/Creatinine Ratio 39 H Glucose 93 Glucometer 147 Calculated Osmolality 296 H Calcium 9.1 Magnesium Icterus Index < 2 Troponin I NT-Pro-B Natriuret Pep Specimen Hemolysis < 15 01/27/18 01/27/18 01/28/18 17:04 21:00 04:07 WBC RBC Hgb Hct MCV MCH MCHC RDW Std Deviation Plt Count MPV Immature Gran % (Auto) Neut % (Auto) Lymph % (Auto) [place] % (Auto) Eos % (Auto) Baso % (Auto) Neut # (Auto) Lymph # (Auto) [place] # (Auto) Eos # (Auto) Baso # (Auto) Abs Immat Gran (auto) Sample Site ABG pH ABG pCO2 ABG pO2 ABG HCO3 ABG Total CO2 ABG O2 Saturation ABG Base Excess Modified [place]en Test O2 Delivery Method FiO2 (liters per min) Turbidity < 20 Sodium 143 Potassium 4.0 Chloride 104 Carbon Dioxide 27 Anion Gap 12 BUN 52.0 H* Creatinine 1.2 D GFR Calculation 45 BUN/Creatinine Ratio 43 H Glucose 140 H Glucometer 193 272 Calculated Osmolality 291 H Calcium 9.0 Magnesium 2.1 Icterus Index < 2 Troponin I NT-Pro-B Natriuret Pep Specimen Hemolysis < 15 01/28/18 06:18 WBC RBC Hgb Hct MCV MCH MCHC RDW Std Deviation Plt Count MPV Immature Gran % (Auto) Neut % (Auto) Lymph % (Auto) [place] % (Auto) Eos % (Auto) Baso % (Auto) Neut # (Auto) Lymph # (Auto) [place] # (Auto) Eos # (Auto) Baso # (Auto) Abs Immat Gran (auto) Sample Site ABG pH ABG pCO2 ABG pO2 ABG HCO3 ABG Total CO2 ABG O2 Saturation ABG Base Excess Modified [place] Test O2 Delivery Method FiO2 (liters per min) Turbidity Sodium Potassium Chloride Carbon Dioxide Anion Gap BUN Creatinine GFR Calculation BUN/Creatinine Ratio Glucose Glucometer 105 Calculated Osmolality Calcium Magnesium Icterus Index Troponin I NT-Pro-B Natriuret Pep Specimen Hemolysis Assessment and Plan - Assessment and Plan Acute Hypoxic Respiratory Failure Asthma/COPD overlap syndrome ELIZABETH ? Pulmonary HTN CHF Atrial fibrillation - SR Plan: Pt currently on RA, donna this am, on home Bipap at [facility] with 2.5L bled. ABG NOT hypercapnic 7.4/34/110. Currently on A/A QID, pulmicort BID and prednisone 40mg, + cough but no sputum, on flonase and singulair without allergy symptoms, RVP NTD 01/25, sputum pending. Will recheck CXR in AM. NA improved 143, Cr 1.2, s /p diuresis. awaiting 2D echo report. On flecainide for afib, has been SR since arrived. - Time Spent With Patient Total time spent is greater than 50% in coordination of care (as documented) at patient's floor/unit and/or counseling patient: less than 15 minutes
--- NOTE | 2018-01-28 12:00 | Cardiology Progress Note ---
<Cookie Thomas M - Last Filed: 01/29/18 15:56> Subjective Principal diagnosis: SOB Interval history: CC: F/U CHF Amaris is seen in follow up for CHF. She is in no distress on room air. states able to ambulate with 2L O2 and maintain O2 sats. She denies any CP, N/V, diaphoresis. states would eventually like a left and right heart cath. Echo pending. Exam Vital signs: Temperature 96.1 F L 01/28/18 07:14 Pulse Rate 55 L 01/28/18 08:59 Respiratory Rate 20 01/28/18 07:42 Blood Pressure 154/70 H 01/28/18 07:14 Pulse Oximetry 97 01/28/18 07:42 Inpatient Medications: Generic Name Dose Route Start Last Admin Trade Name Freq PRN Reason Stop Dose Admin Albuterol/Ipratropium 3 ml 01/25/18 17:00 01/28/18 07:43 Duoneb AEROSOL 3 ml QID [facility] Administration Allopurinol 300 mg 01/26/18 09:00 01/28/18 08:45 Zyloprim PO 300 mg DAILY [facility] Administration Amlodipine Besylate 10 mg 01/26/18 09:00 01/28/18 08:45 Norvasc PO 10 mg DAILY [facility] Administration Brimonidine/Timolol 1 drop 01/25/18 19:00 01/28/18 06:26 Combigan Eye Drops LEFT EYE 1 drop Q12H [facility] Administration Budesonide 0.5 mg 01/25/18 19:00 01/27/18 19:12 Pulmicort Inhalation AEROSOL 0.5 mg RTBID [facility] Administration Carvedilol 12.5 mg 01/27/18 08:00 01/28/18 08:44 Coreg PO 12.5 mg BIDWM [facility] Administration Flecainide Acetate 150 mg 01/26/18 09:00 01/28/18 08:44 Tambocor PO 150 mg DAILY [facility] Administration Fluoxetine HCl 20 mg 01/26/18 09:00 01/28/18 08:45 Prozac PO 20 mg DAILY [facility] Administration Fluticasone Propionate 2 spray 01/25/18 21:00 01/28/18 08:46 Flonase EA NOSTRIL 2 spray BID [facility] Administration Insulin Aspart 3 - 12 unit 01/25/18 20:59 01/27/18 21:11 Novolog SQ 7 unit SS PRN Administration Hyperglycemia Protocol Insulin Detemir 65 unit 01/27/18 21:00 01/27/18 21:10 Levemir SQ 65 unit HS [facility]THEW Administration Insulin Human Regular 10 unit 01/27/18 17:00 01/28/18 08:22 Novolin R SQ 10 unit AC30 [facility] Administration Levothyroxine Sodium 200 mcg 01/26/18 06:30 01/28/18 06:26 Synthroid PO 200 mcg ACB [facility] Administration Losartan Potassium 100 mg 01/26/18 09:00 01/26/18 10:44 Cozaar PO 100 mg DAILY [facility] Administration Montelukast Sodium 10 mg 01/26/18 09:00 01/28/18 08:44 Singulair PO 10 mg DAILY [facility] Administration --Pom-- ( 1 drop 01/25/18 21:00 01/27/18 20:00 Latanoprostene Bunod PO Not Given [Vyzulta] 1 Drop) HS [facility]W Potassium Chloride 40 meq 01/26/18 08:00 01/27/18 08:44 K-Dur 20 Meq Tablet PO Not Given TIDWM [facility] Pravastatin Sodium 40 mg 01/25/18 21:00 01/27/18 20:00 Pravachol PO Not Given HS [facility] Prednisone 40 mg 01/26/18 08:00 01/28/18 08:45 Deltasone 20 Mg PO 40 mg WB [facility]W Administration Ropinirole HCl 2 mg 01/26/18 09:00 01/28/18 08:44 Requip PO 2 mg DAILY [facility] Administration Sodium Chloride 10 - 80 ml 01/25/18 18:36 Iv Flush IVF PRN PRN Flushing Terazosin HCl 10 mg 01/25/18 21:00 01/27/18 20:01 Hytrin PO Not Given HS MATTHEW Discontinued Medications Generic Name Dose Route Start Last Admin Trade Name Freq PRN Reason Stop Dose Admin Albuterol/Ipratropium 3 ml 01/25/18 12:56 01/25/18 13:30 Duoneb AEROSOL 01/25/18 12:57 3 ml O ONE Administration Albuterol/Ipratropium 3 ml 01/25/18 13:52 01/25/18 14:00 Duoneb AEROSOL 01/25/18 13:53 3 ml O ONE Administration Apixaban 5 mg 01/25/18 21:00 Eliquis PO BID [facility] Brimonidine/Timolol 1 drop 01/25/18 17:45 01/25/18 19:01 Combigan Eye Drops EACH EYE Not Given Q12H [facility] Chlorthalidone 25 mg 01/26/18 09:00 01/26/18 10:39 Hygroton PO 25 mg DAILY [facility] Administration Furosemide 80 mg 01/25/18 17:57 01/25/18 18:41 Lasix 100 Mg/10 Ml IVP 01/25/18 17:58 80 mg ONE TIME ONE Administration Furosemide 80 mg 01/26/18 09:00 01/26/18 10:35 Lasix 80 Mg Tab PO 80 mg DAILY [facility] Administration Furosemide 80 mg 01/26/18 21:09 01/26/18 22:09 Lasix 100 Mg/10 Ml IVP 80 mg O [facility]THEW Administration Furosemide 80 mg 01/27/18 09:00 01/27/18 08:22 Lasix 100 Mg/10 Ml IVP 01/27/18 09:01 80 mg O ONE Administration Furosemide 80 mg 01/27/18 06:30 Lasix 100 Mg/10 Ml IVP 01/27/18 06:31 O ONE Insulin Detemir 90 unit 01/25/18 21:00 01/26/18 22:05 Levemir SQ 90 unit HS [facility] Administration Insulin Human Regular 15 unit 01/26/18 17:00 01/27/18 13:48 Novolin R SQ Not Given AC30 [facility] Metformin HCl 500 mg 01/25/18 22:42 01/25/18 23:10 Glucophage PO 500 mg TID [facility] Administration Metformin HCl 500 mg 01/26/18 08:00 01/27/18 08:44 Glucophage PO Not Given TIDWM [facility] Methylprednisolone Sodium Succinate 125 mg 01/25/18 15:32 01/25/18 15:37 Solu-Medrol IVP 01/25/18 15:33 125 mg O ONE Administration Metoprolol Tartrate 50 mg 01/25/18 18:00 01/26/18 17:32 Lopressor PO 50 mg BIDWM [facility] Administration Non-Formulary Medication 90 unit 01/25/18 21:00 Insulin Degludec [Tresiba Flextouch U-200] SQ HS [facility] Non-Formulary Medication 500 mg 01/25/18 21:00 Metformin Hcl [Metformin Hcl Er] PO TID [facility] Pneumococcal Polyvalent Vaccine 0.5 ml 01/26/18 17:39 01/26/18 18:58 Pneumovax 23 IM 01/26/18 17:40 0.5 ml .ONCE ONE Administration Potassium Chloride 40 meq 01/25/18 17:32 01/25/18 18:41 K-Dur 20 Meq Tablet PO 01/25/18 17:33 40 meq O ONE Administration Sodium Chloride 10 - 80 ml 01/25/18 12:55 01/25/18 18:41 Iv Flush IVF 10 ml PRN PRN Administration Flushing - Constitutional no acute distress, morbidly obese, cooperative - Routine HEENT Exam Head: Present: normocephalic ENT: Present: mucous membranes moist - Routine Neck Exam Absent: JVD, carotid bruit - Routine Chest/Breast/Axilla Exam Chest wall: Absent: tenderness - Routine Respiratory Exam Present: decreased breath sounds. Absent: dyspnea - Routine Cardiovascular Exam Present: RRR, bradycardia - Routine Abdominal Exam Present: soft, normoactive bowel sounds - Routine Extremities Exam Present: no edema - Routine Skin Exam Present: intact, dry, warm - Routine Neurological Exam Present: alert, oriented X3 - Routine Psychiatric Exam Present: normal affect, normal thought process - Urinary Catheter Management Urethral Cath placed during this visit: yes Urethral indwelling: Yes Insertion date: 01/25/18 Insertion time: 19:00 Results 01/29/18 04:25 01/29/18 04:25 Comprehensive Metabolic Panel 01/27/18 01/28/18 Range/Units 13:05 04:07 Sodium 146 H 143 (134-144) MEQ/L Potassium 4.2 4.0 (3.6-5) MEQ/L Chloride 105 104 (98-107) MEQ/L Carbon Dioxide 27 27 (22-30) MEQ/L BUN 54.0 H* 52.0 H* (7-17) MG/DL Creatinine 1.4 H D 1.2 D (0.7-1.2) mg/dL Glucose 93 140 H (65-110) MG/DL Calcium 9.1 9.0 (8.4-10.2) MG/DL Intake and Output 01/27/18 01/28/18 01/28/18 22:59 06:59 14:59 Intake Total 540 / 540 100 / 100 360 / 360 Output Total 2049 900 / 900 Balance -1510 / -1510 -800 / -800 360 / 360 Intake: Oral 540 / 540 100 / 100 360 / 360 Output: Urine Amount (Catheter) 2049 900 / 900 Other: Urine Appearance Clear Clear Urine Color Yellow Yellow Stool Color Brown Stool Consistency Soft Formed Size of Bowel Movement Large # Bowel Movements 1 Weight 284 lb 6.341 oz Patient Weight 01/29/18 06:59 Weight 284 lb 6.341 oz - Imaging and Cardiology Imaging & Cardiology Narrative: Date of Exam: 01/26/18 Ordering Provider: Miladis Nazario DO Type of Exam(s): XR chest 1V Reason for Exam(s): CHF Indication: CHF PROCEDURE: XR chest 1V: Encounter: Initial Comparison: January 25, 2018 Findings: Prior pulmonary edema has improved. There is a small left effusion remaining. No pneumothorax or new infiltrate. Heart size and mediastinal contours are stable. Impression: Improving CHF. 01/28/18 12:04 Assessment and Plan - Assessment and Plan (1) Acute and chronic respiratory failure with hypoxia Current visit: Yes Status: Acute Likely needs RHC - NPO after midnight (2) HTN (hypertension) Problem details: Borderline control. Current visit: No Status: Chronic (3) Hyperlipidemia Problem details: On a statin. Current visit: No Status: Chronic (4) Hypothyroidism Problem details: Clinically euthyroid, but chemically over-replaced. Needs to reduce dose a bit. Current visit: No Status: Chronic (5) Diabetes mellitus type 2, uncontrolled, without complications Problem details: Poor control. Needs more bolus and less basal insulin. Also needs to use carb ratio for bolusing. Current visit: No Status: Chronic (6) DVT prophylaxis Current visit: Yes Status: Acute (7) CHF (congestive heart failure) Current visit: Yes Status: Acute Appears to be euvolemic. - Assessment and Plan 01/27/18 CHF (congestive heart failure) Echo has been completed, Dr. Alvarez will be reading tomorrow, will determine further plan of care based on results. No CP, troponin negative x3, no ischemic changes per EKG. Lasix 80mg IV x1 yesterday and again this AM with >1500cc UOP, LE edema resolved , dyspnea and O2 requirements improved. Cr, BUN and bicard trending up, pt on dry side. Hold on further diuretics until labs and Echo assessed tomorrow. BNP 5040 01/26/18, 3820 today. Con't 2L/24h fluid restriction, daily wts. Acute and chronic respiratory failure with hypoxia On 2L O2, not on chronic O2 at home. RCAT with NEB tx. Bipap at [facility]. Primary team managing. Atrial flutter Currently NSR. On Flecainide 150mg PO BID per . HAMLETVASYazmin 4, will resume Eliquis after Dr. Alvarez assess if need for HC pending echo results. Educate on fall prevention/safety. Monitor on tele. HTN (hypertension) BP somewhat improved this evening. D/C'd Chlorthalidone 2/2 hypokalemia. D/C Metoprolol 50mg PO BID, starting Coreg 12.5mg PO BID, may titrate up as indicated/tolerates. Con't Cozaar 100mg PO Daily and Norvasc 10mg PO Daily. Monitor. Hypokalemia K+4.2 (4.4)(3.2). 40mEQ KCL PO TID. Con't to hold chlorthalidone. Monitor. Hyperlipidemia Con't statin. No ASA at this time as on Eliquis and no dx of CAD at this time. Diabetes mellitus type 2, uncontrolled, without complications Problem details: Poor control. Needs more bolus and less basal insulin. Also needs to use carb ratio for bolusing. Per primary team. Hypothyroidism Problem details: Clinically euthyroid, but chemically over-replaced. Needs to reduce dose a bit. Con't home Levothyroxine. Med management. DVT prophylaxis SCD's. Holding Eliquis Ailyn Gale APRN assessed patient independently and full assessment and plan discussed verbally with who is in agreement with all of the above. 01/28/18 Appears euvolemic - Likely needs RHC - NPO after midnight. Hospital Course Summary Disclaimer: The visit summary below is not to be considered part of the above Progress Note. Hospital Course: Impression Hypoxia with exertion- Decreased to 80% Severe dyspnea with exertion- tachypnea- 48/minute Leukocytosis with fever- POA Hypernatremia-POA- 151 Hypokalemia- POA- 3.2 Asthma Questionable COPD Obstructive sleep apnea- Uses Bi-pap with O2 at night Type II diabetes Hypertension Paroxysmal atrial fibrillation/flutter Hyperlipidemia Hypothyroidism Depression Plan Initially patient was admitted as observation, however, given significant hypoxia with minimal exertion change patient to inpatient status and admit her to the hospitalist services under the care of Dr. Graves Exact etiology of hypoxia is unclear as it could be multiply factorial. Cardiology consultation placed to Dr Alvarez as he has followed in the outpt setting. She is scheduled for stress test in the february. It is recommended by pulmonology that if patient does obtain a stress test that she have Right and Left sided procedure to evaluate pulmonary pressure. Patient placed to Dr. Hurley. Did speak with him on the phone. He will see patient on Sunday01/27/18. Given mild fever will obtain a viral respiratory panel to rule out infectious etiology. Patient on scheduled breathing treatments including DuoNeb 4 times a day and Pulmicort twice a day Will hold off on starting IV fluids at this point, will discuss further with attending. Patient may be having some fluid overload given increased weight and questionable edema on chest x-ray. Patient does routinely takes Lasix 80 mg- Sunday, Sunday and Sunday for diuresis. Will discuss with attending. Will monitor Accu-Cheks, patient did have mild hypoglycemia into the 50s while in the emergency room. Will discuss insulin regimen Since she is in Sinus Rhythm Cardiology recommends stopping Eliquis at this time in case patient needs cardiac catheter in the near future Cardiology also requests obtaining echocardiogram, serial troponins, and giving a one-time dose of Lasix 80 milligrams IV Will replace potassium orally- 40 MEQ now and scheduled TID Urinalysis reviewed does reveal leukocyte esterase with WBCs. However, there is external squamous epithelial Cells. She is asymptomatic, will wait and review Urine culture. Place schneider cath to monitor urinary output Check CBC and BMP tomorrow morning to follow blood counts, renal function and electrolytes Patient does wish to be a full code and this order is written Will discuss further orders and plan of care with attending, Dr. Graves At time of discharge medical care will return to primary care provider, Dr Thayer 01/26 Exact etiology of hypoxia is unclear as it could be multiply factorial - ashtma/ copd, volume overload, OHS Cardiology consultation placed to Dr Alvarez as he has followed in the outpt setting. She is scheduled for stress test in the of February. It is recommended by pulmonology that if patient does obtain a stress test that she have Right and Left sided procedure to evaluate pulmonary pressure. Patient placed to Dr. Hurley. Did speak with him on the phone. He will see patient on Sunday01/27/18. RVP negative Patient on scheduled breathing treatments including DuoNeb 4 times a day and Pulmicort twice a day s/p lasix yesterday, now on home dose Continue steroids. blood sugars increased - takes tresiba 130 units QHS, regular insulin around 100 units daily divided TID, and metformin at home. On latus 90 QHS, ISS, and metformin here. Will hold metformin in case of need for contrast. Add mealtime insulin at 15 units TID. Since she is in Sinus Rhythm Cardiology recommends stopping Eliquis at this time in case patient needs cardiac catheter in the near future Cardiology also requeted on admission obtaining echocardiogram, serial troponins (0.23), and giving a one-time dose of Lasix 80 milligrams IV - patient down 700 since admission. echo pending. will add troponin to am labs to tred Urinalysis reviewed does reveal leukocyte esterase with WBCs. However, there is external squamous epithelial Cells. She is asymptomatic, urine culture normal lulú. Place schneider cath to monitor urinary output SCDs to bilateral lower extremity for DVT prophylaxis Check CBC and BMP tomorrow morning to follow blood counts, renal function and electrolytes Patient does wish to be a full code and this order is written At time of discharge medical care will return to primary care provider, Dr Thayer Get exercise oximetry today. Dr. Hurley to see tomorrow. <Kenny Alvarez - Last Filed: 01/30/18 07:52> Exam Vital signs: Temperature 97.6 F 01/30/18 07:37 Pulse Rate 62 01/30/18 07:37 Respiratory Rate 20 01/30/18 07:37 Blood Pressure 138/62 01/30/18 07:37 Pulse Oximetry 99 01/30/18 07:37 Inpatient Medications: Generic Name Dose Route Start Last Admin Trade Name Freq PRN Reason Stop Dose Admin Acetaminophen 325 - 650 mg 01/29/18 15:03 Tylenol PO Q5H PRN Pain Al Hydroxide/Mg Hydroxide 30 ml 01/29/18 15:03 Maalox Plus PO Q3H PRN Indigestion Albuterol/Ipratropium 3 ml 01/25/18 17:00 01/29/18 19:49 Duoneb AEROSOL 3 ml QID [facility] Administration Allopurinol 300 mg 01/26/18 09:00 01/29/18 09:43 Zyloprim PO 300 mg DAILY [facility] Administration Amlodipine Besylate 10 mg 01/26/18 09:00 01/29/18 09:46 Norvasc PO 10 mg DAILY [facility] Administration Atropine Sulfate 0.5 mg 01/29/18 15:03 Atropine IVP Q5M PRN Bradycardia Bisacodyl 5 - 10 mg 01/29/18 15:03 Dulcolax PO DAILY PRN Constipation Bisacodyl 10 mg 01/29/18 15:03 Dulcolax RECTALLY DAILY PRN Constipation Brimonidine/Timolol 1 drop 01/25/18 19:00 01/30/18 06:34 Combigan Eye Drops LEFT EYE 1 drop Q12H [facility] Administration Budesonide 0.5 mg 01/25/18 19:00 01/30/18 06:53 Pulmicort Inhalation AEROSOL 0.5 mg RTBID [facility] Administration Carvedilol 12.5 mg 01/27/18 08:00 01/29/18 18:49 Coreg PO 12.5 mg BIDWM [facility] Administration Flecainide Acetate 150 mg 01/26/18 09:00 01/29/18 09:43 Tambocor PO 150 mg DAILY [facility] Administration Fluoxetine HCl 20 mg 01/26/18 09:00 01/29/18 09:42 Prozac PO 20 mg DAILY [facility] Administration Fluticasone Propionate 2 spray 01/25/18 21:00 01/29/18 21:28 Flonase EA NOSTRIL 2 spray BID [facility] Administration Furosemide 80 mg 01/29/18 17:00 01/30/18 00:40 Lasix 100 Mg/10 Ml IVP 80 mg Q8HR [facility] Administration Insulin Aspart 10 unit 01/29/18 06:30 01/29/18 17:57 Novolog SQ Not Given ACB [facility] Insulin Aspart 10 unit 01/29/18 11:30 01/29/18 11:29 Novolog SQ Not Given ACL [facility] Insulin Aspart 15 unit 01/28/18 17:00 01/29/18 18:47 Novolog SQ 15 unit ACS [facility] Administration Insulin Detemir 55 unit 01/29/18 21:00 01/29/18 21:29 Levemir SQ 55 unit [facility] Administration Levothyroxine Sodium 100 mcg 02/03/18 06:30 Synthroid PO [id number] [facility]THEW Levothyroxine Sodium 200 mcg 01/29/18 06:30 01/30/18 06:34 Synthroid PO 200 mcg [id number]@[id number] [facility] Administration Lorazepam 0.5 - 1 mg 01/29/18 15:03 Ativan PO Q4H PRN Anxiety Lorazepam 0.5 - 1 mg 01/29/18 15:03 Ativan Inj IVP Q4H PRN Anxiety Losartan Potassium 100 mg 01/26/18 09:00 01/26/18 10:44 Cozaar PO 100 mg DAILY [facility] Administration Magnesium Hydroxide 30 ml 01/29/18 15:03 Mom PO DAILY PRN Constipation Metoclopramide HCl 5 - 10 mg 01/29/18 15:03 Reglan IVP Q6H PRN Nausea &/or vomiting Montelukast Sodium 10 mg 01/26/18 09:00 01/29/18 09:42 Singulair PO 10 mg DAILY [facility] Administration Nitroglycerin 0.4 mg 01/29/18 15:03 Nitrostat SL Q5MIN3 PRN Angina --Pom-- ( 1 drop 01/25/18 21:00 01/29/18 21:30 Latanoprostene Bunod PO Not Given [Vyzulta] 1 Drop) [facility] Ondansetron HCl 4 mg 01/29/18 15:03 Zofran IVP Q6H PRN Nausea &/or vomiting Potassium Chloride 40 meq 01/26/18 08:00 01/29/18 18:48 K-Dur 20 Meq Tablet PO 40 meq TIDWM [facility] Administration Pravastatin Sodium 40 mg 01/25/18 21:00 01/29/18 21:29 Pravachol PO 40 mg [facility] Administration Promethazine HCl 12.5 - 25 mg 01/29/18 15:03 Phenergan Inj IVP Q6H PRN Nausea &/or vomiting Ropinirole HCl 2 mg 01/26/18 09:00 01/29/18 09:42 Requip PO 2 mg DAILY [facility] Administration Sodium Chloride 10 - 80 ml 01/25/18 18:36 01/29/18 10:37 Iv Flush IVF 10 ml PRN PRN Administration Flushing Terazosin HCl 10 mg 01/25/18 21:00 01/29/18 21:29 Hytrin PO 10 mg HS [facility] Administration Discontinued Medications Generic Name Dose Route Start Last Admin Trade Name Freq PRN Reason Stop Dose Admin Albuterol/Ipratropium 3 ml 01/25/18 12:56 01/25/18 13:30 Duoneb AEROSOL 01/25/18 12:57 3 ml O ONE Administration Albuterol/Ipratropium 3 ml 01/25/18 13:52 01/25/18 14:00 Duoneb AEROSOL 01/25/18 13:53 3 ml O ONE Administration Apixaban 5 mg 01/25/18 21:00 Eliquis PO BID [facility] Brimonidine/Timolol 1 drop 01/25/18 17:45 01/25/18 19:01 Combigan Eye Drops EACH EYE Not Given Q12H [facility] Chlorthalidone 25 mg 01/26/18 09:00 01/26/18 10:39 Hygroton PO 25 mg DAILY [facility] Administration Furosemide 80 mg 01/25/18 17:57 01/25/18 18:41 Lasix 100 Mg/10 Ml IVP 01/25/18 17:58 80 mg ONE TIME ONE Administration Furosemide 80 mg 01/26/18 09:00 01/26/18 10:35 Lasix 80 Mg Tab PO 80 mg DAILY [facility] Administration Furosemide 80 mg 01/26/18 21:09 01/26/18 22:09 Lasix 100 Mg/10 Ml IVP 80 mg O [facility] Administration Furosemide 80 mg 01/27/18 09:00 01/27/18 08:22 Lasix 100 Mg/10 Ml IVP 01/27/18 09:01 80 mg O ONE Administration Furosemide 80 mg 01/27/18 06:30 Lasix 100 Mg/10 Ml IVP 01/27/18 06:31 O ONE Sodium Chloride 1,000 mls @ 75 mls/hr 01/29/18 09:00 01/30/18 00:24 Normal Saline IV 01/29/18 22:19 Infused .[id number] [facility] Infusion Insulin Aspart 3 - 12 unit 01/25/18 20:59 01/27/18 21:11 Novolog SQ 7 unit SS PRN Administration Hyperglycemia Protocol Insulin Detemir 90 unit 01/25/18 21:00 01/26/18 22:05 Levemir SQ 90 unit HS [facility] Administration Insulin Detemir 65 unit 01/27/18 21:00 01/28/18 20:42 Levemir SQ 65 unit HS [facility] Administration Insulin Human Regular 15 unit 01/26/18 17:00 01/27/18 13:48 Novolin R SQ Not Given AC30 [facility] Insulin Human Regular 10 unit 01/27/18 17:00 01/28/18 12:23 Novolin R SQ 10 unit AC30 [facility] Administration Levothyroxine Sodium 200 mcg 01/26/18 06:30 01/28/18 06:26 Synthroid PO 200 mcg ACB [facility] Administration Metformin HCl 500 mg 01/25/18 22:42 01/25/18 23:10 Glucophage PO 500 mg TID [facility] Administration Metformin HCl 500 mg 01/26/18 08:00 01/27/18 08:44 Glucophage PO Not Given TIDWM [facility] Methylprednisolone Sodium Succinate 125 mg 01/25/18 15:32 01/25/18 15:37 Solu-Medrol IVP 01/25/18 15:33 125 mg O ONE Administration Metoprolol Tartrate 50 mg 01/25/18 18:00 01/26/18 17:32 Lopressor PO 50 mg BIDWM [facility] Administration Non-Formulary Medication 90 unit 01/25/18 21:00 Insulin Degludec [Tresiba Flextouch U-200] SQ HS [facility] Non-Formulary Medication 500 mg 01/25/18 21:00 Metformin Hcl [Metformin Hcl Er] PO TID [facility] Pneumococcal Polyvalent Vaccine 0.5 ml 01/26/18 17:39 01/26/18 18:58 Pneumovax 23 IM 01/26/18 17:40 0.5 ml .ONCE ONE Administration Potassium Chloride 40 meq 01/25/18 17:32 01/25/18 18:41 K-Dur 20 Meq Tablet PO 01/25/18 17:33 40 meq O ONE Administration Prednisone 40 mg 01/26/18 08:00 01/29/18 09:42 Deltasone 20 Mg PO 40 mg WB [facility] Administration Sodium Chloride 10 - 80 ml 01/25/18 12:55 01/25/18 18:41 Iv Flush IVF 10 ml PRN PRN Administration Flushing - Urinary Catheter Management Urethral Cath placed during this visit: no Results 01/30/18 04:26 01/30/18 04:26 CBC 01/30/18 Range/Units 04:26 WBC 13.0 H (4.5-11.0) T/MM3 RBC 4.36 (4.00-5.20) M/MM3 Hgb 13.0 D (12-16) GM/DL Hct 39.5 (36-46) % Plt Count 291 (130-400) T/MM3 Neut # (Auto) 8.9 H (1.8-7.7) T/MM3 Lymph # (Auto) 2.6 (1-4.8) T/MM3 [place] # (Auto) 1.4 H (0-0.8) T/MM3 Eos # (Auto) 0.1 (0-0.5) T/MM3 Baso # (Auto) 0.0 (0-0.2) T/MM3 Comprehensive Metabolic Panel 01/30/18 Range/Units 04:26 Sodium 145 H (134-144) MEQ/L Potassium 3.4 L (3.6-5) MEQ/L Chloride 100 (98-107) MEQ/L Carbon Dioxide 34 H (22-30) MEQ/L BUN 38.0 H (7-17) MG/DL Creatinine 1.0 (0.7-1.2) mg/dL Glucose 76 (65-110) MG/DL Calcium 9.5 (8.4-10.2) MG/DL Intake and Output 01/29/18 01/30/18 01/30/18 22:59 06:59 14:59 Intake Total 1120 / 1120 Output Total 2400 / 2400 4200 / 4200 Balance -2400 / -2400 -3080 / -3080 Intake: IV 1000 / 1000 Ns 1,000 ml @ 75 mls/hr IV . 1000 / 1000 [id number] [facility] Rx#:[id number] Oral 120 / 120 Output: Urine 2400 / 2400 4200 / 4200 Other: Urine Appearance Clear Clear Urine Color Pale Pale Urine Odor Normal Stool Color Brown Stool Consistency Soft Size of Bowel Movement Large Weight 123 kg Patient Weight 01/31/18 06:59 Weight 123 kg Assessment and Plan - Assessment and Plan (1) HTN (hypertension) Problem details: Borderline control. Current visit: No Status: Chronic (2) Hyperlipidemia Problem details: On a statin. Current visit: No Status: Chronic (3) Hypothyroidism Problem details: Clinically euthyroid, but chemically over-replaced. Needs to reduce dose a bit. Current visit: No Status: Chronic (4) Diabetes mellitus type 2, uncontrolled, without complications Problem details: Poor control. Needs more bolus and less basal insulin. Also needs to use carb ratio for bolusing. Current visit: No Status: Chronic (5) Acute and chronic respiratory failure with hypoxia Current visit: Yes Status: Acute (6) DVT prophylaxis Current visit: Yes Status: Acute (7) CHF (congestive heart failure) Current visit: Yes Status: Acute - Attestation Attestation Narrative: 01/30/18 07:52 Recommendation After examining the patient I agree with the above assessment. I am involved in the formulation of the patient's plan of care. Hospital Course Summary Disclaimer: The visit summary below is not to be considered part of the above Progress Note.
--- NOTE | 2018-01-28 15:38 | Progress Note ---
- Date 01/28/18 Subjective: Patient is seen this afternoon sitting in her chair. She reports that she has not yet had a chance to see Dr. Alvarez. She is awaiting results of her echocardiogram. She states that Dr. Hurley told her that she may need to have a heart cath and that her shortness of breath is likely multifactorial. She is asking if she needs to have the administrative judge manage her blood sugars while she is here as she has seen Dr. Pham recently. She is still having shortness of breath with ambulating, however, this is not unusual for her. She reports that even walking across her house will significantly wind her and that it takes her quite a while to recover. She has been off of oxygen today, but has not been walking in the halls. Objective Vital signs: Temperature 96.1 F L 01/28/18 07:14 Pulse Rate 55 L 01/28/18 08:59 Respiratory Rate 20 01/28/18 12:03 Blood Pressure 154/70 H 01/28/18 07:14 Pulse Oximetry 98 01/28/18 12:03 Height/Weight/BMI: Weight 129 kg - Constitutional Present: no acute distress, well nourished, well developed, obese - Routine HEENT Exam Head: Present: normocephalic, atraumatic - Routine Respiratory Exam Present: CTA bilaterally, wheezes (only with forced expiration) - Routine Cardiovascular Exam Present: RRR, no murmur - Routine Abdominal Exam Present: soft, non distended, non tender - Routine Extremities Exam Present: edema (trace bilaterally), normal capillary refill - Routine Skin Exam Present: dry, warm - Routine Neurological Exam Present: alert, oriented X3 - Routine Lymphatic Exam Lymphatic: Absent: adenopathy - Routine Psychiatric Exam Present: normal affect, cooperative Results - Labs CBC & Chem 7: 01/27/18 04:08 01/28/18 04:07 Microbiology Results: Microbiology 01/28/18 12:38 Sputum, Expectorated Gram Stain - Final 01/28/18 12:38 Sputum, Expectorated Sputum Culture - Preliminary Culture Initiated - Results Pending - ABG Interpretation ABG results: 01/27/18 15:57 ABG pH 7.460 H ABG pCO2 34 ABG pO2 110.7 H ABG HCO3 24.4 ABG Total CO2 25.4 ABG O2 Saturation 98.6 H ABG Base Excess 0.9 Assessment and Plan (1) Acute and chronic respiratory failure with hypoxia Current visit: Yes Status: Acute (2) Exertional dyspnea Current visit: Yes Status: Acute Assessment and Plan: Impression Acute/chronic hypoxic respiratory failure Exertional hypoxia- Decreased to 80% Severe dyspnea with exertion- tachypnea- 48/minute CHF Leukocytosis with fever- POA Hypernatremia-POA- 151 Hypokalemia- POA- 3.2 Asthma/COPD overlap-RLL 01/29/80 Pulmonary hypertension-RLL 01/28/18 Obstructive sleep apnea-Uses Bi-pap with O2 at night Type II diabetes Hypertension Paroxysmal atrial fibrillation/flutter Hyperlipidemia Hypothyroidism Depression Plan Exact etiology of hypoxia is unclear as it could be multifactorial - asthma/copd , volume overload Cardio consulted -echo result is pending. Holding chlorthalidone and losartan. Metoprolol discontinued and Coreg initiated. Continue flecainide. Continues on 2 L per 24 hour fluid restriction Pulmonology has seen patient. Have ordered repeat chest x-ray in a.m. Continuing A/A, Pulmicort and prednisone. She will likely need portable oxygen for home given her significant shortness of breath with any exertion. Recent exercise oximetry - required 1-2L w/ exertion. Start bladder training and hope to DC schneider in am. DC SSI and adjust scheduled insulin as needed. Continue levemir 65 u q hs. She has needed SSI the past 2 evenings at hs. Increase her AC supper novolog from 10 to 15U. Continue 10 U AC breakfast and lunch. Creatinine improved overnight 1.4-->1.2. Metformin, chlorthalidone, home potassium supplement, and losartan on hold due to previous increase in creatinine. Recheck BMP in a.m. DVT Prophylaxis: SCD's Resuscitation Status: Full Code - Physician Narrative Physician: Francheska Graves MD Narrative: Date: 01/28/18 Time: 1720 I have independently evaluated and examined this patient. I reviewed the chart, the patient's history, and the FOIL WRAPPER/PA's documented findings as above. We discussed and formulated the assessment and plan as above with additions as below: Amaris was seen earlier today at which time she described fatigue transferring from the bed to the chair. Oxygenation with this transition was not reported. She complains of increased cough today without sputum production. She is off oxygen at the time of my evaluation. Patient reports no awareness of when she converted from atrial flutter to sinus rhythm earlier this month. NAD, alert, fluent speech-patient is not dyspneic speaking today. Respirations nonlabored, good airflow, breath sounds clear; no lower extremity edema BUN/creatinine elevated over the weekend following aggressive diuresis. Furosemide on hold. Chest x-ray 01/26 demonstrated borderline cardiomegaly and decreasing vascular markings compared to film on date of admission by my review. Telemetry reviewed-sinus rhythm. PT/OT ordered. Ambulatory oximetry on room air to be repeated. Discussed with pulmonary earlier today. Dr. Alvarez will review echo today and provide additional thoughts on management. Hospital Course Summary Disclaimer: The visit summary below is not to be considered part of the above Progress Note. Hospital Course: Impression Hypoxia with exertion- Decreased to 80% Severe dyspnea with exertion- tachypnea- 48/minute Leukocytosis with fever- POA Hypernatremia-POA- 151 Hypokalemia- POA- 3.2 Asthma Questionable COPD Obstructive sleep apnea- Uses Bi-pap with O2 at night Type II diabetes Hypertension Paroxysmal atrial fibrillation/flutter Hyperlipidemia Hypothyroidism Depression Plan Initially patient was admitted as observation, however, given significant hypoxia with minimal exertion change patient to inpatient status and admit her to the hospitalist services under the care of Dr. Graves Exact etiology of hypoxia is unclear as it could be multiply factorial. Cardiology consultation placed to Dr Alvarez as he has followed in the outpt setting. She is scheduled for stress test in the beginning of February. It is recommended by pulmonology that if patient does obtain a stress test that she have Right and Left sided procedure to evaluate pulmonary pressure. Patient placed to Dr. Hurley. Did speak with him on the phone. He will see patient on Sunday01/27/18. Given mild fever will obtain a viral respiratory panel to rule out infectious etiology. Patient on scheduled breathing treatments including DuoNeb 4 times a day and Pulmicort twice a day Will hold off on starting IV fluids at this point, will discuss further with attending. Patient may be having some fluid overload given increased weight and questionable edema on chest x-ray. Patient does routinely takes Lasix 80 mg- Sunday, Sunday and Sunday for diuresis. Will discuss with attending. Will monitor Accu-Cheks, patient did have mild hypoglycemia into the 50s while in the emergency room. Will discuss insulin regimen Since she is in Sinus Rhythm Cardiology recommends stopping Eliquis at this time in case patient needs cardiac catheter in the near future Cardiology also requests obtaining echocardiogram, serial troponins, and giving a one-time dose of Lasix 80 milligrams IV Will replace potassium orally- 40 MEQ now and scheduled TID Urinalysis reviewed does reveal leukocyte esterase with WBCs. However, there is external squamous epithelial Cells. She is asymptomatic, will wait and review Urine culture. Place schneider cath to monitor urinary output Check CBC and BMP tomorrow morning to follow blood counts, renal function and electrolytes Patient does wish to be a full code and this order is written Will discuss further orders and plan of care with attending, Dr. Graves At time of discharge medical care will return to primary care provider, Dr Thayer 01/26 Exact etiology of hypoxia is unclear as it could be multiply factorial - ashtma/ copd, volume overload, OHS Cardiology consultation placed to Dr Alvarez as he has followed in the outpt setting. She is scheduled for stress test in the beginning of February. It is recommended by pulmonology that if patient does obtain a stress test that she have Right and Left sided procedure to evaluate pulmonary pressure. Patient placed to Dr. Hurley. Did speak with him on the phone. He will see patient on Sunday01/27/18. RVP negative Patient on scheduled breathing treatments including DuoNeb 4 times a day and Pulmicort twice a day s/p lasix yesterday, now on home dose Continue steroids. blood sugars increased - takes tresiba 130 units QHS, regular insulin around 100 units daily divided TID, and metformin at home. On latus 90 QHS, ISS, and metformin here. Will hold metformin in case of need for contrast. Add mealtime insulin at 15 units TID. Since she is in Sinus Rhythm Cardiology recommends stopping Eliquis at this time in case patient needs cardiac catheter in the near future Cardiology also requeted on admission obtaining echocardiogram, serial troponins (0.23), and giving a one-time dose of Lasix 80 milligrams IV - patient down 700 since admission. echo pending. will add troponin to am labs to tred Urinalysis reviewed does reveal leukocyte esterase with WBCs. However, there is external squamous epithelial Cells. She is asymptomatic, urine culture normal lulú. Place schneider cath to monitor urinary output SCDs to bilateral lower extremity for DVT prophylaxis Check CBC and BMP tomorrow morning to follow blood counts, renal function and electrolytes Patient does wish to be a full code and this order is written At time of discharge medical care will return to primary care provider, Dr Thayer Get exercise oximetry today. Dr. Hurley to see tomorrow. 01/27 Cardio consulted - to have stress in early february. Hold Eliquis. Gave another 80mg IV lasix dose last night and this morning. Has 1550 out total so far. polm to see today. serial troponins negative RCAT, oxygen Continue prednisone blood sugars increased - takes tresiba 130 units QHS, regular insulin around 100 units daily divided TID, and metformin at home. On latus 90 QHS, novolog 15 TID WM, and ISS here. Will hold metformin in case of need for contrast and/or in light of increased creatinine and aggressive diuresis. Creatinine to 1.3 today - monitor closely with diuresis. Held losartan, metformin, and home potassium supplement. Recheck BMP at 1300 to monitor creatinine and replace K if needed. 01/28 Exact etiology of hypoxia is unclear as it could be multifactorial - asthma/copd , volume overload Cardio consulted -echo result is pending. Holding chlorthalidone and losartan. Metoprolol discontinued and Coreg initiated. Continue flecainide. Continues on 2 L per 24 hour fluid restriction Pulmonology has seen patient. Have ordered repeat chest x-ray in a.m. Continuing A/A, Pulmicort and prednisone. She will likely need portable oxygen for home given her significant shortness of breath with any exertion. Recent exercise oximetry - required 1-2L w/ exertion. Start bladder training and hope to DC schneider in am. DC SSI and adjust scheduled insulin as needed. Continue levemir 65 u q hs. She has needed SSI the past 2 evenings at hs. Increase her AC supper novolog from 10 to 15U. Continue 10 U AC breakfast and lunch. Creatinine improved overnight 1.4-->1.2. Metformin, chlorthalidone, home potassium supplement, and losartan on hold due to previous increase in creatinine. Recheck BMP in a.m.
[2018-01-28] MEDS: SALINE FLUSH 10ml SYRINGE IVF PRN ×2 (15:55→20:41)
[2018-01-28] MEDS: INSULIN ASPART 100unit/ml INJECTION SQ SCH (17:47)
[2018-01-28] MEDS: TERAZOSIN 5 MG CAPSULE PO SCH (20:40)
[2018-01-28] MEDS: PRAVASTATIN 40 MG TABLET PO SCH (20:40)
[2018-01-28] MEDS: INSULIN DETEMIR 100unit/ml INJECTION SQ SCH (20:42)
[2018-01-28] MEDS: LATANOPROSTENE BUNOD PO SCH (20:44)
[2018-01-29] MEDS: BRIMONIDINE/TIMOLOL 0.2%-0.5% EYE DROPS 5ml LEFT EYE SCH ×2 (06:28→18:49)
[2018-01-29] MEDS: LEVOTHYROXINE 200 MCG TABLET PO SCH (06:29)
[2018-01-29] MEDS: BUDESONIDE INH.SOLN 0.5mg/2ml NEB AEROSOL SCH ×2 (08:05→19:49)
[2018-01-29] MEDS: ALBUTEROL/IPRATROPIUM 2.5mg-0.5mg/3ml NEB AEROSOL SCH ×4 (08:06→19:49)
[2018-01-29] MEDS ORDERED: NS 1,000 ML IV SCH (09:00)
--- NOTE | 2018-01-29 09:01 | Echocardiogram ---
DATE OF PROCEDURE January 25, [address] Francheska Graves This is a two-dimensional echo with spectral Doppler, color-flow and M-mode. It was obtained in a patient with shortness of air. This is a technically very difficult study with poor images. Left atrium is dilated. Left ventricular end-diastolic dimension is normal. Left ventricular wall thickness is normal. LV systolic function is normal with ejection fraction of about 60%. Right atrium is dilated. Right ventricle is normal. Aortic root dimension is normal. Mitral valve annulus is calcified. Mitral valve leaflets are normal with mild mitral regurgitation. Aortic valve was not visualized well. However, Doppler studies indicate increased velocities across the aortic valve with peak velocity of 2.12 m/sec with peak gradient of 18 and mean gradient of 9. Aortic valve area is calculated at 0.85 cm2. However, this may be an overestimation of aortic stenosis. Mild aortic insufficiency is present. Tricuspid valve shows moderate tricuspid regurgitation with [id number] pulmonary hypertension with estimated pulmonary artery systolic pressure of 65. Pulmonary valve shows no pulmonary insufficiency. There is no pericardial effusion. IMPRESSION 1. Normal LV systolic function with ejection fraction of 60%. 2. Technically very difficult study. 3. Biatrial dilation. 4. Mitral annulus calcification with mild mitral regurgitation. 5. Questionable aortic stenosis with valve area of 0.85 cm2. However, this cannot be accurate due to quality of the echo. 6. Mild aortic insufficiency. 7. Moderate tricuspid regurgitation with [id number] pulmonary hypertension with estimated pulmonary artery systolic pressure of 65. MTDD
--- NOTE | 2018-01-29 09:34 | XRay Report ---
INDICATION: Congestion PROCEDURE: CHEST 2-VIEWS UPRIGHT (PA & LAT) Encounter: Initial COMPARISON: January 26, 2018 FINDINGS: Mildly increased interstitial markings, slightly increased from the prior study. Trace left effusion. No pneumothorax. No new consolidation. Heart size and mediastinal contours are stable. Impression: Mild pulmonary edema. .
[2018-01-29] MEDS: PredniSONE 20 MG TABLET PO SCH (09:42)
[2018-01-29] MEDS: CARVEDILOL 12.5 MG TABLET PO SCH ×2 (09:42→18:49)
[2018-01-29] MEDS: ROPINIROLE 2 MG TABLET PO SCH (09:42)
[2018-01-29] MEDS: FLUoxetine 20 MG CAPSULE PO SCH (09:42)
[2018-01-29] MEDS: MONTELUKAST 10 MG TABLET PO SCH (09:42)
[2018-01-29] MEDS: ALLOPURINOL 300 MG TABLET PO SCH (09:43)
[2018-01-29] MEDS: FLECAINIDE 100 MG TABLET PO SCH (09:43)
[2018-01-29] MEDS: AMLODIPINE 10 MG TABLET PO SCH (09:46)
[2018-01-29] MEDS: FLUTICASONE NASAL SPRAY 50mcg EA NOSTRIL SCH ×2 (09:50→21:28)
[2018-01-29] MEDS: SALINE FLUSH 10ml SYRINGE IVF PRN (10:37)
--- NOTE | 2018-01-29 10:52 | Progress Note ---
- Date 01/29/18 Subjective: Patient is seen today sitting in bed. She reports her blood sugar was low this morning. She's been NPO after midnight in preparation for right heart catheter to be done later today by Dr. Alvarez. She has no complaints this time. States bowels are moving some. Continues to be short of breath with exertion but this is chronic for her. Objective Vital signs: Temperature 96.6 F L 01/29/18 07:00 Pulse Rate 59 L 01/29/18 07:00 Respiratory Rate 20 01/29/18 08:07 Blood Pressure 147/63 H 01/29/18 07:00 Pulse Oximetry 100 01/29/18 08:07 Height/Weight/BMI: Weight 129.3 kg - Constitutional Present: no acute distress, well nourished, well developed - Routine HEENT Exam Head: Present: normocephalic, atraumatic - Routine Respiratory Exam Present: CTA bilaterally. Absent: wheezes - Routine Cardiovascular Exam Present: RRR, no murmur - Routine Abdominal Exam Present: soft, non distended, non tender - Routine Extremities Exam Present: no edema, normal capillary refill - Routine Skin Exam Present: dry, warm - Routine Neurological Exam Present: alert, oriented X3 - Routine Lymphatic Exam Lymphatic: Absent: adenopathy - Routine Psychiatric Exam Present: normal affect, cooperative Results - Labs CBC & Chem 7: 01/29/18 04:25 01/29/18 04:25 Microbiology Results: Microbiology 01/28/18 12:38 Sputum, Expectorated Gram Stain - Final 01/28/18 12:38 Sputum, Expectorated Sputum Culture - Preliminary Culture Initiated - Results Pending - ABG Interpretation ABG results: 01/27/18 15:57 ABG pH 7.460 H ABG pCO2 34 ABG pO2 110.7 H ABG HCO3 24.4 ABG Total CO2 25.4 ABG O2 Saturation 98.6 H ABG Base Excess 0.9 - Echocardiogram History of Echocardiogram: 01/25/18-echocardiogram. IMPRESSION. 1. Normal LV systolic function with ejection fraction of 60%. 2. Technically very difficult study. 3. Biatrial dilation. 4. Mitral annulus calcification with mild mitral regurgitation. 5. Questionable aortic stenosis with valve area of 0.85 cm2. However, this cannot be accurate due to quality of the echo. 6. Mild aortic insufficiency. 7. Moderate tricuspid regurgitation with moderate- to-severe pulmonary hypertension with estimated pulmonary artery systolic pressure of 65. Assessment and Plan (1) Exertional dyspnea Current visit: Yes Status: Acute (2) Acute and chronic respiratory failure with hypoxia Current visit: Yes Status: Acute Assessment and Plan: Impression Acute/chronic hypoxic respiratory failure Exertional hypoxia- Sats decreased to 80% w/ exertion Severe dyspnea with exertion- tachypnea- 48/minute CHF Leukocytosis with fever- POA Hypernatremia-POA- 151 Hypokalemia- POA- 3.2 Asthma/COPD overlap Pulmonary hypertension/tricuspid regurgitation Obstructive sleep apnea-Uses Bi-pap with O2 at night Type II diabetes Hypertension Paroxysmal atrial fibrillation/flutter Hyperlipidemia Hypothyroidism Depression Possible aortic stenosis-RLL 01/29/18 Plan Echo results showing moderate tricuspid regurg with moderate to severe pulmonary hypertension. Patient will be undergoing right heart catheter later today. Chest x-ray this morning shows mild pulmonary edema. Weight is up almost 4 kg since admission. Continues on fluid restriction. Usually takes Lasix 80 mg Sunday. Currently on normal saline at 75 mL per hour 1 L in prep for heart cath. She continues on prednisone, Pulmicort and nebulizer treatments. White count improving 13.7-->11.3. May be able to DC prednisone. Will talk to pulm. Sputum Gram stain shows moderate gram-positive rods and cocci, few gram- negative rods, few neutrophils. Culture is pending. Urine culture= mixed bacterial lulú. She will likely need portable oxygen for home given her significant shortness of breath with any exertion. Exercise oximetry performed 01/26 - required 1-2L w / exertion. She will need documentation of exercise oximetry within 48 hours dismissal to qualify her for home portable oxygen. Currently on 2 L with saturations of 100%. Will wean O2 as able. Decrease Levemir 65 units to 55 units given her low fasting blood sugar this morning. Creatinine continues to improve. 1.4-->1.2-->1.1. Metformin, chlorthalidone, home potassium supplement, and losartan on hold due to previous increase in creatinine. Chris Del Angel. DVT Prophylaxis: SCD's Resuscitation Status: Full Code - Physician Narrative Physician: Francheska Graves MD Narrative: Date: 01/29/18 Time: 1445 I have independently evaluated and examined this patient. I reviewed the chart, the patient's history, and the PROCESS CONTROL BOARD OPERATOR/PA's documented findings as above. We discussed and formulated the assessment and plan as above with additions as below: Amaris was resting comfortably lying flat and off oxygen when seen. She complained of nasal congestion and persistent minor cough with minimal sputum production. She reported that she was able to walk to the nursing station and a little beyond yesterday which was better than she had done prior days. No lightheadedness with ambulation but she becomes dyspneic. She does not think oxygen was monitored. NAD, alert, no respiratory distress evident Breath sounds are clear posteriorly with good airflow and no wheezing present Regular rhythm, S1-S2, I cannot appreciate an aortic murmur. Chest x-ray obtained today demonstrating borderline enlarged heart size, slightly blunted left angle, minor increased vascular markings. For right/left heart catheter today; renal function has improved with Lasix on hold. PFTs pending. Ambulatory oximetry not done yesterday-will attempt to update today. Hospital Course Summary Disclaimer: The visit summary below is not to be considered part of the above Progress Note. Hospital Course: 01/25/18 Initially patient was admitted as observation, however, given significant hypoxia with minimal exertion change patient to inpatient status and admit her to the hospitalist services under the care of Dr. Graves Cardiology consultation placed to Dr Alvarez as he has followed in the outpt setting. She is scheduled for stress test in the beginning of February. It is recommended by pulmonology that if patient does obtain a stress test that she have Right and Left sided procedure to evaluate pulmonary pressure. Patient placed to Dr. Hurley. Did speak with him on the phone. He will see patient on Sunday01/27/18. Given mild fever will obtain a viral respiratory panel to rule out infectious etiology. Patient on scheduled breathing treatments including DuoNeb 4 times a day and Pulmicort twice a day Will hold off on starting IV fluids at this point, will discuss further with attending. Patient may be having some fluid overload given increased weight and questionable edema on chest x-ray. Patient does routinely takes Lasix 80 mg- Sunday, Sunday and Sunday for diuresis. Will monitor Accu-Cheks, patient did have mild hypoglycemia into the 50s while in the emergency room. Will discuss insulin regimen Since she is in Sinus Rhythm Cardiology recommends stopping Eliquis at this time in case patient needs cardiac catheter in the near future Cardiology also requests obtaining echocardiogram, serial troponins, and giving a one-time dose of Lasix 80 milligrams IV Will replace potassium orally- 40 MEQ now and scheduled TID Urinalysis reviewed does reveal leukocyte esterase with WBCs. However, there is external squamous epithelial Cells. She is asymptomatic, will wait and review Urine culture. Place schneider cath to monitor urinary output Patient does wish to be a full code and this order is written Will discuss further orders and plan of care with attending, Dr. Graves At time of discharge medical care will return to primary care provider, Dr Thayer 01/26/18 Exact etiology of hypoxia is unclear as it could be multiply factorial - asthma/ copd, volume overload, OHS Cardiology consultation placed to Dr Alvarez as he has followed in the outpt setting. She is scheduled for stress test in the beginning of February. It is recommended by pulmonology that if patient does obtain a stress test that she have Right and Left sided procedure to evaluate pulmonary pressure. Patient placed to Dr. Hurley. Did speak with him on the phone. He will see patient on Sunday01/27/18. RVP negative Patient on scheduled breathing treatments including DuoNeb 4 times a day and Pulmicort twice a day s/p lasix yesterday, now on home dose Continue steroids. blood sugars increased - takes tresiba 130 units QHS, regular insulin around 100 units daily divided TID, and metformin at home. On latus 90 QHS, ISS, and metformin here. Will hold metformin in case of need for contrast. Add mealtime insulin at 15 units TID. Get exercise oximetry today. 01/27/18 Cardio consulted - to have stress in early february. Hold Eliquis. Gave another 80mg IV lasix dose last night and this morning. Has 1550 out total so far. polm to see today. serial troponins negative RCAT, oxygen Continue prednisone blood sugars increased - takes tresiba 130 units QHS, regular insulin around 100 units daily divided TID, and metformin at home. On latus 90 QHS, novolog 15 TID WM, and ISS here. Will hold metformin in case of need for contrast and/or in light of increased creatinine and aggressive diuresis. Creatinine to 1.3 today - monitor closely with diuresis. Held losartan, metformin, and home potassium supplement. Recheck BMP at 1300 to monitor creatinine and replace K if needed. 01/28/18 Exact etiology of hypoxia is unclear as it could be multifactorial - asthma/copd , volume overload Cardio consulted -echo result is pending. Holding chlorthalidone and losartan. Metoprolol discontinued and Coreg initiated. Continue flecainide. Continues on 2 L per 24 hour fluid restriction Pulmonology has seen patient. Have ordered repeat chest x-ray in a.m. Continuing A/A, Pulmicort and prednisone. She will likely need portable oxygen for home given her significant shortness of breath with any exertion. Recent exercise oximetry - required 1-2L w/ exertion. DC SSI and adjust scheduled insulin as needed. Continue levemir 65 u q hs. She has needed SSI the past 2 evenings at hs. Increase her AC supper novolog from 10 to 15U. Continue 10 U AC breakfast and lunch. Creatinine improved overnight 1.4-->1.2. Metformin, chlorthalidone, home potassium supplement, and losartan on hold due to previous increase in creatinine. Recheck BMP in a.m. 01/29/18 Echo results showing moderate tricuspid regurg with moderate to severe pulmonary hypertension. Patient will be undergoing right heart catheter later today. Chest x-ray this morning shows mild pulmonary edema. Weight is up almost 4 kg since admission. Continues on fluid restriction. Usually takes Lasix 80 mg Sunday. Currently on normal saline at 75 mL per hour 1 L in prep for heart cath. She continues on prednisone, Pulmicort and nebulizer treatments. White count improving 13.7-->11.3. May be able to DC prednisone. Will talk to pulm. Sputum Gram stain shows moderate gram-positive rods and cocci, few gram- negative rods, few neutrophils. Culture is pending. Urine culture= mixed bacterial lulú. She will likely need portable oxygen for home given her significant shortness of breath with any exertion. Exercise oximetry performed 01/26 - required 1-2L w / exertion. She will need documentation of exercise oximetry within 48 hours dismissal to qualify her for home portable oxygen. Currently on 2 L with saturations of 100%. Will wean O2 as able. Decrease Levemir 65 units to 55 units given her low fasting blood sugar this morning. Creatinine continues to improve. 1.4-->1.2-->1.1. Metformin, chlorthalidone, home potassium supplement, and losartan on hold due to previous increase in creatinine. Chris Del Angel.
[2018-01-29] MEDS: INSULIN ASPART 100unit/ml INJECTION SQ SCH ×3 (11:29→18:47)
--- NOTE | 2018-01-29 11:47 | Discharge Summary ---
Discharge Information Date of admission: 01/25/18 17:03 Attending Physician: Francheska Graves MD Primary care physician: Jose Thayer DO Consults: 01/25/18 17:06 Physician Consult [CONS] Routine Consulting Provider: Kenny Alvarez Reason For Exam: cardiology management Ordering Provider has Notified Truck Hopper: Yes 01/25/18 21:03 Dietary Consult [CONS] Routine Comment: Reason For Exam: - Discharge Diagnosis (1) Exertional dyspnea Status: Acute (2) Acute and chronic respiratory failure with hypoxia Status: Acute - Laboratory Labs: 01/29/18 04:25 01/29/18 04:25 - Microbiology Microbiology 01/28/18 12:38 Sputum, Expectorated Gram Stain - Final 01/28/18 12:38 Sputum, Expectorated Sputum Culture - Preliminary Culture Initiated - Results Pending History of Present Illness HPIJefe Glez is a pleasant 67 yr old female who is known to the hospitalist service from previous admission last month. In December 2017 Patient was admitted with atrial flutter. At that time she was placed on Eliquis. She has been seen in the outpatient setting by both Dr. Alvarez and Dr Guevara. Patient was scheduled for an outpatient cardioversion today by Dr. Guevara however, upon arrival, she was found to be in normal sinus rhythm. Staff noted her to be having increased dyspnea and patient was directed to see her primary care provider. She then presented to see Dr. Thayer at his office. She was found to be dyspneic with room air saturations dipping into the 80s. Patient was instructed to present to the emergency room for acute evaluation. Upon arrival to the emergency room acute evaluation was performed. Patient was to Breathing 28-40 times a minute and on arrival oxygen saturations were 84%. She had a temperature of 100.1. CBC revealed mild leukocytosis with a white count of 12.3. Sodium is elevated at 151, and potassium slightly low at 3.2. Troponin was negative at 0.037, proBNP 5040. Lead EKG revealed regular sinus rhythm. Chest x-ray had been done earlier today in the outpatient setting by Dr. Thayer, which showed mild congestive failure, otherwise unremarkable. Given her severe dyspnea with tachpnea, exertional hypoxia. The hospitalist services were contacted and septa patient for admission for further evaluation and treatment. Patient reports since hospitalization in December. She has had several medication changes. She reports that she initially was taken off of flecainide 50 milligrams, however, then placed back on it by Dr. Guevara at 150 milligrams a day. She is also started on Eliquis for anticoagulation given findings of atrial fibrillation. She reports that she has had ongoing dyspnea for the past 3 weeks, however, worse over the last week to the point that she is unable to ambulate even short distances without severe dyspnea. She notes over the last 24 hours. She is having significant conversational dyspnea to the point she is unable to speak 4-5 words at a time without needing to breathe. She does note last night she had a mild fever, however, denies any productive coughing. He does chronically use BiPAP with oxygen at nighttime only. She has been seen in the past by Dr. Hurley, given her underlying lung disease of asthma. She reports that she has been told she possibly had an underlying COPD. She was a smoker for 6 weeks. However, then quit approximately 40 years ago. She is noted to be at 8.5 pounds since 12/13/17. We did discuss advanced directives and she does wish to be a full code Objective Vital signs: Temperature 96.6 F L 01/29/18 07:00 Pulse Rate 54 L 01/29/18 08:00 Respiratory Rate 24 01/29/18 11:20 Blood Pressure 147/63 H 01/29/18 07:00 Pulse Oximetry 100 01/29/18 08:07 Height/Weight/BMI: Weight 129.3 kg Hospital Course This is a general summary of the patient's hospital course. For more details refer to the complete medical record. Hospital course: 01/25/18 Initially patient was admitted as observation, however, given significant hypoxia with minimal exertion change patient to inpatient status and admit her to the hospitalist services under the care of Dr. Graves Cardiology consultation placed to Dr Alvarez as he has followed in the outpt setting. She is scheduled for stress test in the beginning of February. It is recommended by pulmonology that if patient does obtain a stress test that she have Right and Left sided procedure to evaluate pulmonary pressure. Patient placed to Dr. Hurley. Did speak with him on the phone. He will see patient on Sunday01/27/18. Given mild fever will obtain a viral respiratory panel to rule out infectious etiology. Patient on scheduled breathing treatments including DuoNeb 4 times a day and Pulmicort twice a day Will hold off on starting IV fluids at this point, will discuss further with attending. Patient may be having some fluid overload given increased weight and questionable edema on chest x-ray. Patient does routinely takes Lasix 80 mg- Sunday, Sunday and Sunday for diuresis. Will discuss with attending. Will monitor Accu-Cheks, patient did have mild hypoglycemia into the 50s while in the emergency room. Will discuss insulin regimen Since she is in Sinus Rhythm Cardiology recommends stopping Eliquis at this time in case patient needs cardiac catheter in the near future Cardiology also requests obtaining echocardiogram, serial troponins, and giving a one-time dose of Lasix 80 milligrams IV Will replace potassium orally- 40 MEQ now and scheduled TID Urinalysis reviewed does reveal leukocyte esterase with WBCs. However, there is external squamous epithelial Cells. She is asymptomatic, will wait and review Urine culture. Place schneider cath to monitor urinary output Patient does wish to be a full code and this order is written Will discuss further orders and plan of care with attending, Dr. Graves At time of discharge medical care will return to primary care provider, Dr Thayer 01/26/18 Exact etiology of hypoxia is unclear as it could be multiply factorial - ashtma/ copd, volume overload, OHS Cardiology consultation placed to Dr Alvarez as he has followed in the outpt setting. She is scheduled for stress test in the beginning of February. It is recommended by pulmonology that if patient does obtain a stress test that she have Right and Left sided procedure to evaluate pulmonary pressure. Patient placed to Dr. Hurley. Did speak with him on the phone. He will see patient on Sunday01/27/18. RVP negative Patient on scheduled breathing treatments including DuoNeb 4 times a day and Pulmicort twice a day s/p lasix yesterday, now on home dose Continue steroids. blood sugars increased - takes tresiba 130 units QHS, regular insulin around 100 units daily divided TID, and metformin at home. On latus 90 QHS, ISS, and metformin here. Will hold metformin in case of need for contrast. Add mealtime insulin at 15 units TID. Get exercise oximetry today. 01/27/18 Cardio consulted - to have stress in early february. Hold Eliquis. Gave another 80mg IV lasix dose last night and this morning. Has 1550 out total so far. polm to see today. serial troponins negative RCAT, oxygen Continue prednisone blood sugars increased - takes tresiba 130 units QHS, regular insulin around 100 units daily divided TID, and metformin at home. On latus 90 QHS, novolog 15 TID WM, and ISS here. Will hold metformin in case of need for contrast and/or in light of increased creatinine and aggressive diuresis. Creatinine to 1.3 today - monitor closely with diuresis. Held losartan, metformin, and home potassium supplement. Recheck BMP at 1300 to monitor creatinine and replace K if needed. 01/28/18 Exact etiology of hypoxia is unclear as it could be multifactorial - asthma/copd , volume overload Cardio consulted -echo result is pending. Holding chlorthalidone and losartan. Metoprolol discontinued and Coreg initiated. Continue flecainide. Continues on 2 L per 24 hour fluid restriction Pulmonology has seen patient. Have ordered repeat chest x-ray in a.m. Continuing A/A, Pulmicort and prednisone. She will likely need portable oxygen for home given her significant shortness of breath with any exertion. Recent exercise oximetry - required 1-2L w/ exertion. Start bladder training and hope to DC schneider in am. DC SSI and adjust scheduled insulin as needed. Continue levemir 65 u q hs. She has needed SSI the past 2 evenings at hs. Increase her AC supper novolog from 10 to 15U. Continue 10 U AC breakfast and lunch. Creatinine improved overnight 1.4-->1.2. Metformin, chlorthalidone, home potassium supplement, and losartan on hold due to previous increase in creatinine. Recheck BMP in a.m. 01/29/18 Echo results showing moderate tricuspid regurg with moderate to severe pulmonary hypertension. Patient will be undergoing right heart catheter later today. Chest x-ray this morning shows mild pulmonary edema. Weight is up almost 4 kg since admission. Continues on fluid restriction. Usually takes Lasix 80 mg Sunday. Currently on normal saline at 75 mL per hour 1 L in prep for heart cath. She continues on prednisone, Pulmicort and nebulizer treatments. White count improving 13.7-->11.3. May be able to DC prednisone. Will talk to pulm. Sputum Gram stain shows moderate gram-positive rods and cocci, few gram- negative rods, few neutrophils. Culture is pending. Urine culture= mixed bacterial lulú. She will likely need portable oxygen for home given her significant shortness of breath with any exertion. Exercise oximetry performed 01/26 - required 1-2L w / exertion. She will need documentation of exercise oximetry within 48 hours dismissal to qualify her for home portable oxygen. Currently on 2 L with saturations of 100%. Will wean O2 as able. Decrease Levemir 65 units to 55 units given her low fasting blood sugar this morning. Creatinine continues to improve. 1.4-->1.2-->1.1. Metformin, chlorthalidone, home potassium supplement, and losartan on hold due to previous increase in creatinine. Chris Del Angel. Discharge Plan - Discharge Disposition *Condition: Stable Reason For Visit (Visit label in EMR): severe hypoxia with exertion - Discharge Medications *Discharge Medications: No Action Allopurinol [Zyloprim] 300 mg PO DAILY FLUoxetine [Prozac] 20 mg PO DAILY Ropinirole [Requip] 2 mg PO DAILY Pravastatin [Pravachol] 40 mg PO DAILY Amlodipine [Norvasc] 10 mg PO DAILY Levothyroxine Sodium 200 mcg PO DAILY Chlorthalidone 25 mg PO DAILY Terazosin HCl 10 mg PO HS Apixaban [Eliquis] 5 mg PO BID #60 tab Albuterol Sulfate [Proair Hfa] 1 puff INH Q4H PRN PRN Reason: Shortness Of Air/Wheezing Insulin Regular, Human [NovoLIN R] 90 - 110 unit SQ TIDWM Furosemide [Lasix 80 mg Tab] 80 mg PO MOWEFR Fluticasone Nasal Comins [Flonase] 2 spray INTRANASAL BID Latanoprostene Bunod [Vyzulta] 1 drop EACH EYE HS EPINEPHrine Pen [Epipen] 0.3 mg IM O PRN PRN Reason: Prn Orders Montelukast [Singulair] 10 mg PO DAILY Potassium Chloride [K-DUR 20 mEq Tablet] 40 meq PO TIDWM #30 tab Cozaar (losartan) 100 mg tablet 100 mg PO DAILY Asmanex Twisthaler (Mometasone 110 mcg (30 doses) )breath activated powder inhaler 2 puff INH BID Spiriva Respimat (tiotropium bromide) 2.5 mcg/actuation, inhalation 2 puff INH DAILY Glucophage XR (metformin ER) 500 mg tablet, 24 hr 500 mg PO TID tab flecainide 150 mg tablet 150 mg PO DAILY 30 Days #60 Lopressor (metoprolol tartrate) 50 mg tablet 50 mg PO BID 30 Days #60 tab Mobic (Meloxicam) 7.5 mg tablet 15 mg PO QAM tab Combigan (brimonidine 0.2 %-timolol 0.5 %) eye drops 1 drop LEFT EYE Q12H Tresiba FlexTouch U-200 (insulin degludec) 200 unit/mL (3 mL) PEN 90 unit SQ HS ml - Referrals/Follow Up - Patient Handouts Patient Handouts: Hypoxia (GEN) Physician Narrative - Narrative Attestation Narrative: Date: 01/29/18 Time: 3540
[2018-01-29] MEDS ORDERED: MIDAZOLAM 2mg/2ml INJECTION ONE (13:28)
[2018-01-29] MEDS ORDERED: FentaNYL 250 MCG/5 ML INJECTION ONE (13:28)
[2018-01-29] MEDS ORDERED: LIDOCAINE 1% (10mg/ml) 30ml SDV INJ ONE (13:29)
[2018-01-29] MEDS ORDERED: HEPARIN 1,000 UNITS/500 ML PREMIX (*CVL ONLY*) IV ONE (13:29)
[2018-01-29] MEDS ORDERED: ATROPINE 1 MG/ML INJECTION IVP PRN (15:03)
[2018-01-29] MEDS ORDERED: PROMETHAZINE 25 MG INJECTION IVP PRN (15:03)
[2018-01-29] MEDS ORDERED: MAG-AL + SIM ORAL LIQUID 30ml PO PRN (15:03)
[2018-01-29] MEDS ORDERED: ACETAMINOPHEN 325 MG TABLET PO PRN (15:03)
[2018-01-29] MEDS ORDERED: NITROGLYCERIN 0.4 MG SUBLINGUAL TABLET SL PRN (15:03)
[2018-01-29] MEDS ORDERED: ONDANSETRON 4 MG/2 ML INJECTION IVP PRN (15:03)
[2018-01-29] MEDS ORDERED: METOCLOPRAMIDE 10mg/2ml INJECTION IVP PRN (15:03)
[2018-01-29] MEDS ORDERED: Bisacodyl EC TAB 5 MG TABLET PO PRN (15:03)
[2018-01-29] MEDS ORDERED: LORazepam 0.5 MG TABLET PO PRN (15:03)
[2018-01-29] MEDS ORDERED: BISACODYL 10 MG SUPPOSITORY RECTALLY PRN (15:03)
--- NOTE | 2018-01-29 15:58 | Cardiac Catheterization Report ---
DATE OF PROCEDURE January 29, 2018 The patient is a pleasant 67-year-old lady who was admitted with congestive heart failure and she has had congestive heart failure in the past with recurrence of the heart failure with hypoxia. Also has possible aortic stenosis by echocardiogram and was referred for further evaluation by cardiac catheterization and possible intervention. Echocardiogram showed pulmonary hypertension. PROCEDURE 1. Left heart catheterization. 2. Coronary angiography. 3. Left ventriculography. 4. Right heart catheterization. 5. Right femoral angiography to visualize the vessel for closure device. 6. Successful Mynx deployment for hemostasis. TECHNIQUE She was prepped and draped in the usual sterile techniques. 1% lidocaine was used for local anesthesia. Using modified Seldinger technique, arterial access was obtained into the right femoral artery with placement of a 6-Samoan arterial sheath. Venous access was obtained into the right femoral vein with placement of a 7-Samoan venous sheath. LEFT VENTRICULOGRAPHY Left ventriculography in single-plane CEDILLO shallow projection showed normal LV systolic function with ejection fraction of about 65% with no mitral regurgitation or gradient across the aortic valve. LVEDP was about 22. CORONARY ANGIOGRAPHY Left main was free of significant lesions. Left anterior descending artery was a small-caliber vessel which did not reach the apex. It was free of significant lesions. One major diagonal was coming off of the LAD which was free of significant lesions. Left circumflex artery was nondominant with no significant lesions. Right coronary artery was free of significant lesions with the PDA showing diffuse disease distally at which point the vessel was about 1 mm in diameter. RIGHT HEART CATHETERIZATION HEMODYNAMIC DATA Pulmonary capillary wedge pressure mean 30. Pulmonary artery pressure was 58/ 25 with a mean of 39, right ventricular pressure was 60/12 with a EDP of 24, and right atrial pressure mean of 17. Aortic saturation was 94% and mixed venous saturation obtained from the pulmonary artery position was 66%. The patient tolerated the procedure well with no complications. IMPRESSION 1. Moderate elevation in right heart pressures. 2. Coronary artery disease of the small vessels as described above. 3. Normal LV systolic function with ejection fraction of about 65%. 4. Successful Mynx deployment for hemostasis. PLAN Will continue medical management. The patient may require more diuresis. MTDD
--- NOTE | 2018-01-29 17:30 | Pulmonology Progress Note ---
Subjective Principal diagnosis: SOB Interval history: Back from heart cath. feeling ok. Using bipap faithfully denies coughing or sputum Exam Vital signs: Temperature 96.6 F L 01/29/18 07:00 Pulse Rate 53 L 01/29/18 16:00 Respiratory Rate 20 01/29/18 16:30 Blood Pressure 131/64 01/29/18 16:00 Pulse Oximetry 95 01/29/18 16:03 Inpatient Medications: Generic Name Dose Route Start Last Admin Trade Name Freq PRN Reason Stop Dose Admin Acetaminophen 325 - 650 mg 01/29/18 15:03 Tylenol PO Q5H PRN Pain Al Hydroxide/Mg Hydroxide 30 ml 01/29/18 15:03 Maalox Plus PO Q3H PRN Indigestion Albuterol/Ipratropium 3 ml 01/25/18 17:00 01/29/18 16:02 Duoneb AEROSOL 3 ml QID MATTHEW Administration Allopurinol 300 mg 01/26/18 09:00 01/29/18 09:43 Zyloprim PO 300 mg DAILY MATTHEW Administration Amlodipine Besylate 10 mg 01/26/18 09:00 01/29/18 09:46 Norvasc PO 10 mg DAILY MATTHEW Administration Atropine Sulfate 0.5 mg 01/29/18 15:03 Atropine IVP Q5M PRN Bradycardia Bisacodyl 5 - 10 mg 01/29/18 15:03 Dulcolax PO DAILY PRN Constipation Bisacodyl 10 mg 01/29/18 15:03 Dulcolax RECTALLY DAILY PRN Constipation Brimonidine/Timolol 1 drop 01/25/18 19:00 01/29/18 06:28 Combigan Eye Drops LEFT EYE 1 drop Q12H MATTHEW Administration Budesonide 0.5 mg 01/25/18 19:00 01/29/18 08:05 Pulmicort Inhalation AEROSOL 0.5 mg RTBID MATTHEW Administration Carvedilol 12.5 mg 01/27/18 08:00 01/29/18 09:42 Coreg PO 12.5 mg BIDWM MATTHEW Administration Flecainide Acetate 150 mg 01/26/18 09:00 01/29/18 09:43 Tambocor PO 150 mg DAILY MATTHEW Administration Fluoxetine HCl 20 mg 01/26/18 09:00 01/29/18 09:42 Prozac PO 20 mg DAILY MATTHEW Administration Fluticasone Propionate 2 spray 01/25/18 21:00 01/29/18 09:50 Flonase EA NOSTRIL 2 spray BID [facility] Administration Furosemide 80 mg 01/29/18 17:00 Lasix 100 Mg/10 Ml IVP Q8HR [facility] Sodium Chloride 1,000 mls @ 75 mls/hr 01/29/18 09:00 01/29/18 10:36 Normal Saline IV 01/29/18 22:19 75 mls/hr .[id number] MATTHEW Administration Insulin Aspart 10 unit 01/29/18 06:30 Novolog SQ ACB MATTHEW Insulin Aspart 10 unit 01/29/18 11:30 01/29/18 11:29 Novolog SQ Not Given ACL [facility] Insulin Aspart 15 unit 01/28/18 17:00 01/28/18 17:47 Novolog SQ 15 unit ACS [facility] Administration Insulin Detemir 55 unit 01/29/18 21:00 Levemir SQ HS [facility] Levothyroxine Sodium 100 mcg 02/03/18 06:30 Synthroid PO [id number] [facility] Levothyroxine Sodium 200 mcg 01/29/18 06:30 01/29/18 06:29 Synthroid PO 200 mcg [id number] [facility] Administration Lorazepam 0.5 - 1 mg 01/29/18 15:03 Ativan PO Q4H PRN Anxiety Lorazepam 0.5 - 1 mg 01/29/18 15:03 Ativan Inj IVP Q4H PRN Anxiety Losartan Potassium 100 mg 01/26/18 09:00 01/26/18 10:44 Cozaar PO 100 mg DAILY [facility] Administration Magnesium Hydroxide 30 ml 01/29/18 15:03 Mom PO DAILY PRN Constipation Metoclopramide HCl 5 - 10 mg 01/29/18 15:03 Reglan IVP Q6H PRN Nausea &/or vomiting Montelukast Sodium 10 mg 01/26/18 09:00 01/29/18 09:42 Singulair PO 10 mg DAILY [facility] Administration Nitroglycerin 0.4 mg 01/29/18 15:03 Nitrostat SL Q5MIN3 PRN Angina --Pom-- ( 1 drop 01/25/18 21:00 01/28/18 20:44 Latanoprostene Bunod PO Not Given [Vyzulta] 1 Drop) HS [facility] Ondansetron HCl 4 mg 01/29/18 15:03 Zofran IVP Q6H PRN Nausea &/or vomiting Potassium Chloride 40 meq 01/26/18 08:00 01/27/18 08:44 K-Dur 20 Meq Tablet PO Not Given TIDWM MATTHEW Pravastatin Sodium 40 mg 01/25/18 21:00 01/28/18 20:40 Pravachol PO 40 mg HS MATTHEW Administration Promethazine HCl 12.5 - 25 mg 01/29/18 15:03 Phenergan Inj IVP Q6H PRN Nausea &/or vomiting Ropinirole HCl 2 mg 01/26/18 09:00 01/29/18 09:42 Requip PO 2 mg DAILY MATTHEW Administration Sodium Chloride 10 - 80 ml 01/25/18 18:36 01/29/18 10:37 Iv Flush IVF 10 ml PRN PRN Administration Flushing Terazosin HCl 10 mg 01/25/18 21:00 01/28/18 20:40 Hytrin PO 10 mg HS [facility] Administration Discontinued Medications Generic Name Dose Route Start Last Admin Trade Name Freq PRN Reason Stop Dose Admin Albuterol/Ipratropium 3 ml 01/25/18 12:56 01/25/18 13:30 Duoneb AEROSOL 01/25/18 12:57 3 ml O ONE Administration Albuterol/Ipratropium 3 ml 01/25/18 13:52 01/25/18 14:00 Duoneb AEROSOL 01/25/18 13:53 3 ml O ONE Administration Apixaban 5 mg 01/25/18 21:00 Eliquis PO BID [facility] Brimonidine/Timolol 1 drop 01/25/18 17:45 01/25/18 19:01 Combigan Eye Drops EACH EYE Not Given Q12H [facility] Chlorthalidone 25 mg 01/26/18 09:00 01/26/18 10:39 Hygroton PO 25 mg DAILY MATTHEW Administration Furosemide 80 mg 01/25/18 17:57 01/25/18 18:41 Lasix 100 Mg/10 Ml IVP 01/25/18 17:58 80 mg ONE TIME ONE Administration Furosemide 80 mg 01/26/18 09:00 01/26/18 10:35 Lasix 80 Mg Tab PO 80 mg DAILY [facility] Administration Furosemide 80 mg 01/26/18 21:09 01/26/18 22:09 Lasix 100 Mg/10 Ml IVP 80 mg O MATTHEW Administration Furosemide 80 mg 01/27/18 09:00 01/27/18 08:22 Lasix 100 Mg/10 Ml IVP 01/27/18 09:01 80 mg O ONE Administration Furosemide 80 mg 01/27/18 06:30 Lasix 100 Mg/10 Ml IVP 01/27/18 06:31 O ONE Insulin Aspart 3 - 12 unit 01/25/18 20:59 01/27/18 21:11 Novolog SQ 7 unit SS PRN Administration Hyperglycemia Protocol Insulin Detemir 90 unit 01/25/18 21:00 01/26/18 22:05 Levemir SQ 90 unit HS MATTHEW Administration Insulin Detemir 65 unit 01/27/18 21:00 01/28/18 20:42 Levemir SQ 65 unit HS MATTHEW Administration Insulin Human Regular 15 unit 01/26/18 17:00 01/27/18 13:48 Novolin R SQ Not Given AC30 MATTHEW Insulin Human Regular 10 unit 01/27/18 17:00 01/28/18 12:23 Novolin R SQ 10 unit AC30 MATTHEW Administration Levothyroxine Sodium 200 mcg 01/26/18 06:30 01/28/18 06:26 Synthroid PO 200 mcg ACB MATTHEW Administration Metformin HCl 500 mg 01/25/18 22:42 01/25/18 23:10 Glucophage PO 500 mg TID MATTHEW Administration Metformin HCl 500 mg 01/26/18 08:00 01/27/18 08:44 Glucophage PO Not Given TIDWM [facility] Methylprednisolone Sodium Succinate 125 mg 01/25/18 15:32 01/25/18 15:37 Solu-Medrol IVP 01/25/18 15:33 125 mg O ONE Administration Metoprolol Tartrate 50 mg 01/25/18 18:00 01/26/18 17:32 Lopressor PO 50 mg BIDWM MATTHEW Administration Non-Formulary Medication 90 unit 01/25/18 21:00 Insulin Degludec [Tresiba Flextouch U-200] SQ HS [facility] Non-Formulary Medication 500 mg 01/25/18 21:00 Metformin Hcl [Metformin Hcl Er] PO TID [facility] Pneumococcal Polyvalent Vaccine 0.5 ml 01/26/18 17:39 01/26/18 18:58 Pneumovax 23 IM 01/26/18 17:40 0.5 ml .ONCE ONE Administration Potassium Chloride 40 meq 01/25/18 17:32 01/25/18 18:41 K-Dur 20 Meq Tablet PO 01/25/18 17:33 40 meq O ONE Administration Prednisone 40 mg 01/26/18 08:00 01/29/18 09:42 Deltasone 20 Mg PO 40 mg WB MATTHEW Administration Sodium Chloride 10 - 80 ml 01/25/18 12:55 01/25/18 18:41 Iv Flush IVF 10 ml PRN PRN Administration Flushing - Constitutional no acute distress, morbidly obese - Routine HEENT Exam Head: Present: normocephalic - Routine Neck Exam Present: supple, full ROM - Routine Respiratory Exam Present: CTA bilaterally - Routine Cardiovascular Exam Present: RRR - Routine Abdominal Exam Present: soft - Routine Extremities Exam Absent: cyanosis, edema - Urinary Catheter Management Urethral Cath placed during this visit: yes, but has since been removed by the nurse Urethral indwelling: Yes Insertion date: 01/25/18 Insertion time: 19:00 Removal date: 01/29/18 Removal time: 09:00 Results - Laboratory Findings Laboratory: Laboratory Results - last 48 hr 01/27/18 01/28/18 01/28/18 21:00 04:07 06:18 WBC RBC Hgb Hct MCV MCH MCHC RDW Std Deviation Plt Count MPV Immature Gran % (Auto) Neut % (Auto) Lymph % (Auto) Kinney % (Auto) Eos % (Auto) Baso % (Auto) Neut # (Auto) Lymph # (Auto) Kinney # (Auto) Eos # (Auto) Baso # (Auto) Abs Immat Gran (auto) Sample Site ABG pH ABG pCO2 ABG pO2 ABG HCO3 ABG Total CO2 ABG O2 Saturation ABG Base Excess Modified Shaheen Test VBG pH VBG pCO2 VBG pO2 VBG HCO3 VBG Total CO2 VBG O2 Saturation VBG Base Excess O2 Delivery Method FiO2 (liters per min) Turbidity < 20 Sodium 143 Potassium 4.0 Chloride 104 Carbon Dioxide 27 Anion Gap 12 BUN 52.0 H* Creatinine 1.2 D GFR Calculation 45 BUN/Creatinine Ratio 43 H Glucose 140 H Glucometer 272 105 Calculated Osmolality 291 H Calcium 9.0 Magnesium 2.1 Icterus Index < 2 Specimen Hemolysis < 15 01/28/18 01/28/18 01/28/18 11:19 17:30 20:31 WBC RBC Hgb Hct MCV MCH MCHC RDW Std Deviation Plt Count MPV Immature Gran % (Auto) Neut % (Auto) Lymph % (Auto) Kinney % (Auto) Eos % (Auto) Baso % (Auto) Neut # (Auto) Lymph # (Auto) Kinney # (Auto) Eos # (Auto) Baso # (Auto) Abs Immat Gran (auto) Sample Site ABG pH ABG pCO2 ABG pO2 ABG HCO3 ABG Total CO2 ABG O2 Saturation ABG Base Excess Modified Shaheen Test VBG pH VBG pCO2 VBG pO2 VBG HCO3 VBG Total CO2 VBG O2 Saturation VBG Base Excess O2 Delivery Method FiO2 (liters per min) Turbidity Sodium Potassium Chloride Carbon Dioxide Anion Gap BUN Creatinine GFR Calculation BUN/Creatinine Ratio Glucose Glucometer 98 184 215 Calculated Osmolality Calcium Magnesium Icterus Index Specimen Hemolysis 01/29/18 01/29/18 01/29/18 04:25 04:25 06:31 WBC 11.3 H RBC 3.91 L Hgb 11.7 L Hct 35.9 L MCV 91.8 MCH 29.9 MCHC 32.6 RDW Std Deviation 47.4 Plt Count 246 MPV 10.5 Immature Gran % (Auto) 0.4 Neut % (Auto) 67.5 H Lymph % (Auto) 21.4 L Kinney % (Auto) 10.2 H Eos % (Auto) 0.4 Baso % (Auto) 0.1 Neut # (Auto) 7.6 Lymph # (Auto) 2.4 Kinney # (Auto) 1.2 H Eos # (Auto) 0.1 Baso # (Auto) 0.0 Abs Immat Gran (auto) 0.05 H Sample Site ABG pH ABG pCO2 ABG pO2 ABG HCO3 ABG Total CO2 ABG O2 Saturation ABG Base Excess Modified Shaheen Test VBG pH VBG pCO2 VBG pO2 VBG HCO3 VBG Total CO2 VBG O2 Saturation VBG Base Excess O2 Delivery Method FiO2 (liters per min) Turbidity < 20 Sodium 143 Potassium 3.9 Chloride 106 Carbon Dioxide 28 Anion Gap 9 BUN 46.0 H Creatinine 1.1 GFR Calculation 49 BUN/Creatinine Ratio 42 H Glucose 91 Glucometer 44 Calculated Osmolality 287 H Calcium 9.0 Magnesium Icterus Index < 2 Specimen Hemolysis < 15 01/29/18 01/29/18 01/29/18 06:48 10:44 14:42 WBC RBC Hgb Hct MCV MCH MCHC RDW Std Deviation Plt Count MPV Immature Gran % (Auto) Neut % (Auto) Lymph % (Auto) Kinney % (Auto) Eos % (Auto) Baso % (Auto) Neut # (Auto) Lymph # (Auto) Kinney # (Auto) Eos # (Auto) Baso # (Auto) Abs Immat Gran (auto) Sample Site [facility] ABG pH ABG pCO2 ABG pO2 ABG HCO3 ABG Total CO2 ABG O2 Saturation ABG Base Excess Modified Shaheen Test VBG pH 7.354 VBG pCO2 53.1 H VBG pO2 36.8 L VBG HCO3 29.6 H VBG Total CO2 31.2 VBG O2 Saturation 66.3 VBG Base Excess 2.9 O2 Delivery Method FiO2 (liters per min) 4 Turbidity Sodium Potassium Chloride Carbon Dioxide Anion Gap BUN Creatinine GFR Calculation BUN/Creatinine Ratio Glucose Glucometer 65 84 Calculated Osmolality Calcium Magnesium Icterus Index Specimen Hemolysis 01/29/18 14:52 WBC RBC Hgb Hct MCV MCH MCHC RDW Std Deviation Plt Count MPV Immature Gran % (Auto) Neut % (Auto) Lymph % (Auto) Kinney % (Auto) Eos % (Auto) Baso % (Auto) Neut # (Auto) Lymph # (Auto) Kinney # (Auto) Eos # (Auto) Baso # (Auto) Abs Immat Gran (auto) Sample Site R fem ABG pH 7.334 L ABG pCO2 53 H ABG pO2 77.6 L ABG HCO3 28.2 H ABG Total CO2 29.8 H ABG O2 Saturation 94.1 L ABG Base Excess 1.4 Modified Shaheen Test Negative VBG pH VBG pCO2 VBG pO2 VBG HCO3 VBG Total CO2 VBG O2 Saturation VBG Base Excess O2 Delivery Method Cannula FiO2 (liters per min) 4 Turbidity Sodium Potassium Chloride Carbon Dioxide Anion Gap BUN Creatinine GFR Calculation BUN/Creatinine Ratio Glucose Glucometer Calculated Osmolality Calcium Magnesium Icterus Index Specimen Hemolysis Assessment and Plan (1) Shortness of breath Status: Acute Assessment and plan: likely multifactorial and primarily related to pulmonary hypertension. contributing factors include obesity, ELIZABETH, atrial arrhythmias, obstructive airways disease. HC data reviewed. PCWP 30, LVEDP 24. normal EF. PAmean 39. (mild to moderate elevation) has small vessel CAD. I suspect diastolic heart failure. Recommend gentle diuresis, BP control, BIPAP adherence. stop steroids followup in office Current Visit: Yes (2) Asthma-COPD overlap syndrome Status: Acute Assessment and plan: asthma-chronic obstructive pulmonary disease overlap syndrome After reviewing this patient's subjective and objective findings, including history, examination, PFT, and imaging studies, I believe this patient has moderate Asthma/COPD with FEV1 64 %. GOLD Stage A and is Mild risk for exacerbation or complications related to COPD. Current respiratory examination is unremarkable and it does not appear that her obstructive disease is an exacerbating factor at this time. We will continue to treat this patient with a combination of: nebulized albuterol prn/ProAir prn. Spiriva as needed daily. Current Visit: Yes (3) ELIZABETH (obstructive sleep apnea) Status: Acute Assessment and plan: Obstructive Sleep Apnea, severe . Treatment with BIPAP 20/16 with O2 at 2.5 lpm bled in. Compliance download was reviewed and is excellent, 100% compliance. check ABG to rule out hypercapnia I recommend changing mask and tubing every 6 months, change filters monthly. Current Visit: Yes - Assessment and Plan Acute Hypoxic Respiratory Failure Asthma/COPD overlap syndrome ELIZABETH ? Pulmonary HTN CHF Atrial fibrillation - SR Plan: Pt currently on RA, donna this am, on home Bipap at noc 20/16 with 2.5L bled. ABG NOT hypercapnic 7.4/34/110. Currently on A/A QID, pulmicort BID and prednisone 40mg, + cough but no sputum, on flonase and singulair without allergy symptoms, RVP NTD 01/25, sputum pending. Will recheck CXR in AM. NA improved 143, Cr 1.2, s /p diuresis. awaiting 2D echo report. On flecainide for afib, has been SR since arrived. - Time Spent With Patient Total time spent is greater than 50% in coordination of care (as documented) at patient's floor/unit and/or counseling patient: 25 - 35 minutes
[2018-01-29] MEDS: FUROSEMIDE 100 MG/10 ML INJECTION IVP SCH (18:47)
[2018-01-29] MEDS ORDERED: INSULIN DETEMIR 100unit/ml INJECTION SQ SCH (21:00)
[2018-01-29] MEDS: PRAVASTATIN 40 MG TABLET PO SCH (21:29)
[2018-01-29] MEDS: TERAZOSIN 5 MG CAPSULE PO SCH (21:29)
[2018-01-29] MEDS: LATANOPROSTENE BUNOD PO SCH (21:30)
[2018-01-30] MEDS: FUROSEMIDE 100 MG/10 ML INJECTION IVP SCH ×2 (00:40→08:31)
[2018-01-30] MEDS: LEVOTHYROXINE 200 MCG TABLET PO SCH (06:34)
[2018-01-30] MEDS: BRIMONIDINE/TIMOLOL 0.2%-0.5% EYE DROPS 5ml LEFT EYE SCH (06:34)
[2018-01-30] MEDS: BUDESONIDE INH.SOLN 0.5mg/2ml NEB AEROSOL SCH (06:53)
[2018-01-30] MEDS: ALBUTEROL/IPRATROPIUM 2.5mg-0.5mg/3ml NEB AEROSOL SCH ×3 (06:55→16:46)
[2018-01-30] MEDS: LOSARTAN 100 MG TABLET PO SCH (08:29)
[2018-01-30] MEDS: FLECAINIDE 100 MG TABLET PO SCH (08:30)
[2018-01-30] MEDS: FLUoxetine 20 MG CAPSULE PO SCH (08:30)
[2018-01-30] MEDS: FLUTICASONE NASAL SPRAY 50mcg EA NOSTRIL SCH (08:30)
[2018-01-30] MEDS: ALLOPURINOL 300 MG TABLET PO SCH (08:30)
[2018-01-30] MEDS: ROPINIROLE 2 MG TABLET PO SCH (08:30)
[2018-01-30] MEDS: CARVEDILOL 12.5 MG TABLET PO SCH (08:30)
[2018-01-30] MEDS: MONTELUKAST 10 MG TABLET PO SCH (08:30)
[2018-01-30] MEDS: INSULIN ASPART 100unit/ml INJECTION SQ SCH ×2 (08:31→12:32)
[2018-01-30] MEDS: AMLODIPINE 10 MG TABLET PO SCH (08:37)
[2018-01-30] MEDS ORDERED: FUROSEMIDE 80 MG TABLET PO SCH (09:00)
--- NOTE | 2018-01-30 09:44 | Pulmonology Progress Note ---
Subjective Principal diagnosis: SOB Interval history: Pt sitting up to EOB, states her breathing is doing better, minimal cough and no sputum. About to ambulate to chair so will see how her SOB is doing. Got lasix later yesterday and was unable to use bipap as she was up and down a lot. Exam Vital signs: Temperature 97.6 F 01/30/18 07:37 Pulse Rate 63 01/30/18 08:00 Respiratory Rate 20 01/30/18 07:37 Blood Pressure 138/62 01/30/18 07:37 Pulse Oximetry 99 01/30/18 07:37 Inpatient Medications: Generic Name Dose Route Start Last Admin Trade Name Freq PRN Reason Stop Dose Admin Acetaminophen 325 - 650 mg 01/29/18 15:03 Tylenol PO Q5H PRN Pain Al Hydroxide/Mg Hydroxide 30 ml 01/29/18 15:03 Maalox Plus PO Q3H PRN Indigestion Albuterol/Ipratropium 3 ml 01/25/18 17:00 01/29/18 19:49 Duoneb AEROSOL 3 ml QID MATTHEW Administration Allopurinol 300 mg 01/26/18 09:00 01/30/18 08:30 Zyloprim PO 300 mg DAILY MATTHEW Administration Amlodipine Besylate 10 mg 01/26/18 09:00 01/30/18 08:37 Norvasc PO 10 mg DAILY MATTHEW Administration Atropine Sulfate 0.5 mg 01/29/18 15:03 Atropine IVP Q5M PRN Bradycardia Bisacodyl 5 - 10 mg 01/29/18 15:03 Dulcolax PO DAILY PRN Constipation Bisacodyl 10 mg 01/29/18 15:03 Dulcolax RECTALLY DAILY PRN Constipation Brimonidine/Timolol 1 drop 01/25/18 19:00 01/30/18 06:34 Combigan Eye Drops LEFT EYE 1 drop Q12H MATTHEW Administration Budesonide 0.5 mg 01/25/18 19:00 01/30/18 06:53 Pulmicort Inhalation AEROSOL 0.5 mg RTBID MATTHEW Administration Carvedilol 12.5 mg 01/27/18 08:00 01/30/18 08:30 Coreg PO 12.5 mg BIDWM MATTHEW Administration Flecainide Acetate 150 mg 01/26/18 09:00 01/30/18 08:30 Tambocor PO 150 mg DAILY MATTHEW Administration Fluoxetine HCl 20 mg 01/26/18 09:00 01/30/18 08:30 Prozac PO 20 mg DAILY [facility] Administration Fluticasone Propionate 2 spray 01/25/18 21:00 01/30/18 08:30 Flonase EA NOSTRIL 2 spray BID MATTHEW Administration Furosemide 80 mg 01/30/18 09:00 01/30/18 08:51 Lasix 80 Mg Tab PO Not Given DAILY MATTHEW Insulin Aspart 10 unit 01/29/18 06:30 01/30/18 08:31 Novolog SQ 5 unit ACB MATTHEW Administration Insulin Aspart 10 unit 01/29/18 11:30 01/29/18 11:29 Novolog SQ Not Given ACL MATTHEW Insulin Aspart 15 unit 01/28/18 17:00 01/29/18 18:47 Novolog SQ 15 unit ACS MATTHEW Administration Insulin Detemir 55 unit 01/29/18 21:00 01/29/18 21:29 Levemir SQ 55 unit HS [facility] Administration Levothyroxine Sodium 100 mcg 02/03/18 06:30 Synthroid PO Hyman@0630 [facility] Levothyroxine Sodium 200 mcg 01/29/18 06:30 01/30/18 06:34 Synthroid PO 200 mcg MoTuWeThFrSa@0630 [facility] Administration Lorazepam 0.5 - 1 mg 01/29/18 15:03 Ativan PO Q4H PRN Anxiety Lorazepam 0.5 - 1 mg 01/29/18 15:03 Ativan Inj IVP Q4H PRN Anxiety Losartan Potassium 100 mg 01/26/18 09:00 01/30/18 08:29 Cozaar PO 100 mg DAILY [facility] Administration Magnesium Hydroxide 30 ml 01/29/18 15:03 Mom PO DAILY PRN Constipation Metoclopramide HCl 5 - 10 mg 01/29/18 15:03 Reglan IVP Q6H PRN Nausea &/or vomiting Montelukast Sodium 10 mg 01/26/18 09:00 01/30/18 08:30 Singulair PO 10 mg DAILY [facility] Administration Nitroglycerin 0.4 mg 01/29/18 15:03 Nitrostat SL Q5MIN3 PRN Angina --Pom-- ( 1 drop 01/25/18 21:00 01/29/18 21:30 Latanoprostene Bunod PO Not Given [Vyzulta] 1 Drop) HS MATHTEW Ondansetron HCl 4 mg 01/29/18 15:03 Zofran IVP Q6H PRN Nausea &/or vomiting Potassium Chloride 40 meq 01/26/18 08:00 01/30/18 08:29 K-Dur 20 Meq Tablet PO 40 meq TIDWM MATTHEW Administration Pravastatin Sodium 40 mg 01/25/18 21:00 01/29/18 21:29 Pravachol PO 40 mg HS [facility] Administration Promethazine HCl 12.5 - 25 mg 01/29/18 15:03 Phenergan Inj IVP Q6H PRN Nausea &/or vomiting Ropinirole HCl 2 mg 01/26/18 09:00 01/30/18 08:30 Requip PO 2 mg DAILY [facility] Administration Sodium Chloride 10 - 80 ml 01/25/18 18:36 01/29/18 10:37 Iv Flush IVF 10 ml PRN PRN Administration Flushing Terazosin HCl 10 mg 01/25/18 21:00 01/29/18 21:29 Hytrin PO 10 mg HS [facility] Administration Discontinued Medications Generic Name Dose Route Start Last Admin Trade Name Freq PRN Reason Stop Dose Admin Albuterol/Ipratropium 3 ml 01/25/18 12:56 01/25/18 13:30 Duoneb AEROSOL 01/25/18 12:57 3 ml O ONE Administration Albuterol/Ipratropium 3 ml 01/25/18 13:52 01/25/18 14:00 Duoneb AEROSOL 01/25/18 13:53 3 ml O ONE Administration Apixaban 5 mg 01/25/18 21:00 Eliquis PO BID [facility] Brimonidine/Timolol 1 drop 01/25/18 17:45 01/25/18 19:01 Combigan Eye Drops EACH EYE Not Given Q12H [facility] Chlorthalidone 25 mg 01/26/18 09:00 01/26/18 10:39 Hygroton PO 25 mg DAILY [facility] Administration Furosemide 80 mg 01/25/18 17:57 01/25/18 18:41 Lasix 100 Mg/10 Ml IVP 01/25/18 17:58 80 mg ONE TIME ONE Administration Furosemide 80 mg 01/26/18 09:00 01/26/18 10:35 Lasix 80 Mg Tab PO 80 mg DAILY [facility] Administration Furosemide 80 mg 01/26/18 21:09 01/26/18 22:09 Lasix 100 Mg/10 Ml IVP 80 mg O MATTHEW Administration Furosemide 80 mg 01/27/18 09:00 01/27/18 08:22 Lasix 100 Mg/10 Ml IVP 01/27/18 09:01 80 mg O ONE Administration Furosemide 80 mg 01/27/18 06:30 Lasix 100 Mg/10 Ml IVP 01/27/18 06:31 O ONE Furosemide 80 mg 01/29/18 17:00 01/30/18 08:31 Lasix 100 Mg/10 Ml IVP 80 mg Q8HR MATTHEW Administration Sodium Chloride 1,000 mls @ 75 mls/hr 01/29/18 09:00 01/30/18 00:24 Normal Saline IV 01/29/18 22:19 Infused .[id number] MATTHEW Infusion Insulin Aspart 3 - 12 unit 01/25/18 20:59 01/27/18 21:11 Novolog SQ 7 unit SS PRN Administration Hyperglycemia Protocol Insulin Detemir 90 unit 01/25/18 21:00 01/26/18 22:05 Levemir SQ 90 unit HS MATTHEW Administration Insulin Detemir 65 unit 01/27/18 21:00 01/28/18 20:42 Levemir SQ 65 unit HS MATTHEW Administration Insulin Human Regular 15 unit 01/26/18 17:00 01/27/18 13:48 Novolin R SQ Not Given AC30 MATTHEW Insulin Human Regular 10 unit 01/27/18 17:00 01/28/18 12:23 Novolin R SQ 10 unit AC30 MATTHEW Administration Levothyroxine Sodium 200 mcg 01/26/18 06:30 01/28/18 06:26 Synthroid PO 200 mcg ACB MATTHEW Administration Metformin HCl 500 mg 01/25/18 22:42 01/25/18 23:10 Glucophage PO 500 mg TID MATTHEW Administration Metformin HCl 500 mg 01/26/18 08:00 01/27/18 08:44 Glucophage PO Not Given TIDWM MATTHEW Methylprednisolone Sodium Succinate 125 mg 01/25/18 15:32 01/25/18 15:37 Solu-Medrol IVP 01/25/18 15:33 125 mg O ONE Administration Metoprolol Tartrate 50 mg 01/25/18 18:00 01/26/18 17:32 Lopressor PO 50 mg BIDWM MATTHEW Administration Non-Formulary Medication 90 unit 01/25/18 21:00 Insulin Degludec [Tresiba Flextouch U-200] SQ HS MATTHEW Non-Formulary Medication 500 mg 01/25/18 21:00 Metformin Hcl [Metformin Hcl Er] PO TID MATTHEW Pneumococcal Polyvalent Vaccine 0.5 ml 01/26/18 17:39 01/26/18 18:58 Pneumovax 23 IM 01/26/18 17:40 0.5 ml .ONCE ONE Administration Potassium Chloride 40 meq 01/25/18 17:32 01/25/18 18:41 K-Dur 20 Meq Tablet PO 01/25/18 17:33 40 meq O ONE Administration Prednisone 40 mg 01/26/18 08:00 01/29/18 09:42 Deltasone 20 Mg PO 40 mg WB MATTHEW Administration Sodium Chloride 10 - 80 ml 01/25/18 12:55 01/25/18 18:41 Iv Flush IVF 10 ml PRN PRN Administration Flushing - Constitutional no acute distress, morbidly obese, cooperative - Routine HEENT Exam Head: Present: normocephalic, atraumatic Eye: Present: EOMI, PERRL ENT: Present: mucous membranes moist - Routine Neck Exam Present: supple, full ROM - Routine Respiratory Exam Present: decreased breath sounds. Absent: accessory muscle use, patient mechanically ventilated, wheezes, crackles - Routine Cardiovascular Exam Present: RRR, S1, S2, no murmur - Routine Abdominal Exam Present: soft, normoactive bowel sounds - Routine Extremities Exam Present: no edema, non tender, full ROM. Absent: cyanosis, clubbing, edema - Routine Back/Spine/Pelvis Exam Back/Spine: Present: full ROM - Routine Skin Exam Present: intact, dry, warm - Routine Neurological Exam Present: alert, oriented X3, CN II-XII intact, moving all extremities - Routine Psychiatric Exam Present: normal affect, normal thought process, good judgment - Urinary Catheter Management Urethral Cath placed during this visit: yes, but has since been removed by the nurse Urethral indwelling: No Insertion date: 01/25/18 Insertion time: 19:00 Removal date: 01/29/18 Removal time: 09:00 Results - Laboratory Findings Laboratory: Laboratory Results - last 48 hr 01/28/18 01/28/18 01/28/18 11:19 17:30 20:31 WBC RBC Hgb Hct MCV MCH MCHC RDW Std Deviation Plt Count MPV Immature Gran % (Auto) Neut % (Auto) Lymph % (Auto) [place] % (Auto) Eos % (Auto) Baso % (Auto) Neut # (Auto) Lymph # (Auto) [place] # (Auto) Eos # (Auto) Baso # (Auto) Abs Immat Gran (auto) Sample Site ABG pH ABG pCO2 ABG pO2 ABG HCO3 ABG Total CO2 ABG O2 Saturation ABG Base Excess Modified Shaheen Test VBG pH VBG pCO2 VBG pO2 VBG HCO3 VBG Total CO2 VBG O2 Saturation VBG Base Excess O2 Delivery Method FiO2 (liters per min) Turbidity Sodium Potassium Chloride Carbon Dioxide Anion Gap BUN Creatinine GFR Calculation BUN/Creatinine Ratio Glucose Glucometer 98 184 215 Calculated Osmolality Calcium Icterus Index Specimen Hemolysis 01/29/18 01/29/18 01/29/18 04:25 04:25 06:31 WBC 11.3 H RBC 3.91 L Hgb 11.7 L Hct 35.9 L MCV 91.8 MCH 29.9 MCHC 32.6 RDW Std Deviation 47.4 Plt Count 246 MPV 10.5 Immature Gran % (Auto) 0.4 Neut % (Auto) 67.5 H Lymph % (Auto) 21.4 L [place] % (Auto) 10.2 H Eos % (Auto) 0.4 Baso % (Auto) 0.1 Neut # (Auto) 7.6 Lymph # (Auto) 2.4 [place] # (Auto) 1.2 H Eos # (Auto) 0.1 Baso # (Auto) 0.0 Abs Immat Gran (auto) 0.05 H Sample Site ABG pH ABG pCO2 ABG pO2 ABG HCO3 ABG Total CO2 ABG O2 Saturation ABG Base Excess Modified Shaheen Test VBG pH VBG pCO2 VBG pO2 VBG HCO3 VBG Total CO2 VBG O2 Saturation VBG Base Excess O2 Delivery Method FiO2 (liters per min) Turbidity < 20 Sodium 143 Potassium 3.9 Chloride 106 Carbon Dioxide 28 Anion Gap 9 BUN 46.0 H Creatinine 1.1 GFR Calculation 49 BUN/Creatinine Ratio 42 H Glucose 91 Glucometer 44 Calculated Osmolality 287 H Calcium 9.0 Icterus Index < 2 Specimen Hemolysis < 15 01/29/18 01/29/18 01/29/18 06:48 10:44 14:42 WBC RBC Hgb Hct MCV MCH MCHC RDW Std Deviation Plt Count MPV Immature Gran % (Auto) Neut % (Auto) Lymph % (Auto) [place] % (Auto) Eos % (Auto) Baso % (Auto) Neut # (Auto) Lymph # (Auto) [place] # (Auto) Eos # (Auto) Baso # (Auto) Abs Immat Gran (auto) Sample Site [facility] ABG pH ABG pCO2 ABG pO2 ABG HCO3 ABG Total CO2 ABG O2 Saturation ABG Base Excess Modified Shaheen Test VBG pH 7.354 VBG pCO2 53.1 H VBG pO2 36.8 L VBG HCO3 29.6 H VBG Total CO2 31.2 VBG O2 Saturation 66.3 VBG Base Excess 2.9 O2 Delivery Method FiO2 (liters per min) 4 Turbidity Sodium Potassium Chloride Carbon Dioxide Anion Gap BUN Creatinine GFR Calculation BUN/Creatinine Ratio Glucose Glucometer 65 84 Calculated Osmolality Calcium Icterus Index Specimen Hemolysis 01/29/18 01/29/18 01/29/18 14:52 17:56 21:17 WBC RBC Hgb Hct MCV MCH MCHC RDW Std Deviation Plt Count MPV Immature Gran % (Auto) Neut % (Auto) Lymph % (Auto) [place] % (Auto) Eos % (Auto) Baso % (Auto) Neut # (Auto) Lymph # (Auto) [place] # (Auto) Eos # (Auto) Baso # (Auto) Abs Immat Gran (auto) Sample Site fem ABG pH 7.334 L ABG pCO2 53 H ABG pO2 77.6 L ABG HCO3 28.2 H ABG Total CO2 29.8 H ABG O2 Saturation 94.1 L ABG Base Excess 1.4 Modified Shaheen Test Negative VBG pH VBG pCO2 VBG pO2 VBG HCO3 VBG Total CO2 VBG O2 Saturation VBG Base Excess O2 Delivery Method Cannula FiO2 (liters per min) 4 Turbidity Sodium Potassium Chloride Carbon Dioxide Anion Gap BUN Creatinine GFR Calculation BUN/Creatinine Ratio Glucose Glucometer 90 194 Calculated Osmolality Calcium Icterus Index Specimen Hemolysis 01/30/18 01/30/18 01/30/18 04:26 04:26 06:32 WBC 13.0 H RBC 4.36 Hgb 13.0 D Hct 39.5 MCV 90.6 MCH 29.8 MCHC 32.9 RDW Std Deviation 47.2 Plt Count 291 MPV 10.4 Immature Gran % (Auto) 0.5 Neut % (Auto) 67.9 H Lymph % (Auto) 20.2 L [place] % (Auto) 10.7 H Eos % (Auto) 0.5 Baso % (Auto) 0.2 Neut # (Auto) 8.9 H Lymph # (Auto) 2.6 [place] # (Auto) 1.4 H Eos # (Auto) 0.1 Baso # (Auto) 0.0 Abs Immat Gran (auto) 0.07 H Sample Site ABG pH ABG pCO2 ABG pO2 ABG HCO3 ABG Total CO2 ABG O2 Saturation ABG Base Excess Modified Shaheen Test VBG pH VBG pCO2 VBG pO2 VBG HCO3 VBG Total CO2 VBG O2 Saturation VBG Base Excess O2 Delivery Method FiO2 (liters per min) Turbidity < 20 Sodium 145 H Potassium 3.4 L Chloride 100 Carbon Dioxide 34 H Anion Gap 11 BUN 38.0 H Creatinine 1.0 GFR Calculation 55 BUN/Creatinine Ratio 38 H Glucose 76 Glucometer 41 Calculated Osmolality 287 H Calcium 9.5 Icterus Index < 2 Specimen Hemolysis < 15 01/30/18 06:56 WBC RBC Hgb Hct MCV MCH MCHC RDW Std Deviation Plt Count MPV Immature Gran % (Auto) Neut % (Auto) Lymph % (Auto) [place] % (Auto) Eos % (Auto) Baso % (Auto) Neut # (Auto) Lymph # (Auto) [place] # (Auto) Eos # (Auto) Baso # (Auto) Abs Immat Gran (auto) Sample Site ABG pH ABG pCO2 ABG pO2 ABG HCO3 ABG Total CO2 ABG O2 Saturation ABG Base Excess Modified Shaheen Test VBG pH VBG pCO2 VBG pO2 VBG HCO3 VBG Total CO2 VBG O2 Saturation VBG Base Excess O2 Delivery Method FiO2 (liters per min) Turbidity Sodium Potassium Chloride Carbon Dioxide Anion Gap BUN Creatinine GFR Calculation BUN/Creatinine Ratio Glucose Glucometer 69 Calculated Osmolality Calcium Icterus Index Specimen Hemolysis Assessment and Plan - Assessment and Plan Acute Hypoxic Respiratory Failure Asthma/COPD overlap syndrome - FEV1 64 %. GOLD Stage A ELIZABETH Pulmonary HTN WHO group 2&3 CHF- Diastolic Atrial fibrillation - SR Small vessel CAD Plan: Pt currently on RA, awaiting ExOx to assess O2 needs. Uses home Bipap at noc with 2.5L bled. Last ABG was 7.3/53/77, cont same bipap. Currently on A/A QID , pulmicort BID and s/p prednisone, on flonase and singulair without allergy symptoms, RVP NTD 01/25, sputum cx pending. last CXR with improving congestion, diuresis per CV. On flecainide for afib, has been SR since arrived. Per [facility] PCWP 30, PAP 58/25, LVEDP 24, normal EF, PA mean 39, (mild to moderate elevation ), recommend cont diuresis, BP control and bipap adherence. - Time Spent With Patient Total time spent is greater than 50% in coordination of care (as documented) at patient's floor/unit and/or counseling patient: less than 15 minutes
[2018-01-30 12:00] VITALS: BP 121/58; RESP 16; TEMP 98.5; O2SAT 93
--- NOTE | 2018-01-30 12:49 | Discharge Summary ---
Discharge Information Date of admission: 01/25/18 17:03 Anticipated date of discharge: 01/30/18 Attending Physician: Emma Ortega MD Primary care physician: Jose Thayer DO Consults: 01/25/18 17:06 Physician Consult [CONS] Routine Consulting Provider: Kenny Izaguirre Reason For Exam: cardiology management Ordering Provider has Notified Junior Linux Systems Administrator: Yes 01/25/18 21:03 Dietary Consult [CONS] Routine Comment: Reason For Exam: - Discharge Diagnosis (1) Exertional dyspnea Status: Acute (2) Acute and chronic respiratory failure with hypoxia Status: Acute Dyspnea - Procedures Procedures: DATE OF PROCEDURE January 29, 2018 The patient is a pleasant 67-year-old lady who was admitted with congestive heart failure and she has had congestive heart failure in the past with recurrence of the heart failure with hypoxia. Also has possible aortic stenosis by echocardiogram and was referred for further evaluation by cardiac catheterization and possible intervention. Echocardiogram showed pulmonary hypertension. PROCEDURE 1. Left heart catheterization. 2. Coronary angiography. 3. Left ventriculography. 4. Right heart catheterization. 5. Right femoral angiography to visualize the vessel for closure device. 6. Successful Mynx deployment for hemostasis. TECHNIQUE She was prepped and draped in the usual sterile techniques. 1% lidocaine was used for local anesthesia. Using modified Seldinger technique, arterial access was obtained into the right femoral artery with placement of a 6-Divehi arterial sheath. Venous access was obtained into the right femoral vein with placement of a 7-Divehi venous sheath. LEFT VENTRICULOGRAPHY Left ventriculography in single-plane CEDILLO shallow projection showed normal LV systolic function with ejection fraction of about 65% with no mitral regurgitation or gradient across the aortic valve. LVEDP was about 22. CORONARY ANGIOGRAPHY Left main was free of significant lesions. Left anterior descending artery was a small-caliber vessel which did not reach the apex. It was free of significant lesions. One major diagonal was coming off of the LAD which was free of significant lesions. Left circumflex artery was nondominant with no significant lesions. Right coronary artery was free of significant lesions with the PDA showing diffuse disease distally at which point the vessel was about 1 mm in diameter. RIGHT HEART CATHETERIZATION HEMODYNAMIC DATA Pulmonary capillary wedge pressure mean 30. Pulmonary artery pressure was 58/ 25 with a mean of 39, right ventricular pressure was 60/12 with a EDP of 24, and right atrial pressure mean of 17. Aortic saturation was 94% and mixed venous saturation obtained from the pulmonary artery position was 66%. The patient tolerated the procedure well with no complications. IMPRESSION 1. Moderate elevation in right heart pressures. 2. Coronary artery disease of the small vessels as described above. 3. Normal LV systolic function with ejection fraction of about 65%. 4. Successful Mynx deployment for hemostasis. PLAN Will continue medical management. The patient may require more diuresis. - Laboratory Labs: Laboratory Tests 01/30/18 01/30/18 04:26 04:26 WBC 13.0 H RBC 4.36 Hgb 13.0 D Hct 39.5 Plt Count 291 Sodium 145 H Potassium 3.4 L Chloride 100 Carbon Dioxide 34 H Anion Gap 11 BUN 38.0 H Creatinine 1.0 Glucose 76 Calcium 9.5 Laboratory Tests 01/27/18 04:08 NT-Pro-B Natriuret Pep 3820 H - Microbiology Microbiology 01/28/18 12:38 Sputum, Expectorated Gram Stain - Final 01/28/18 12:38 Sputum, Expectorated Sputum Culture - Preliminary - Radiology Radiology: Date of Exam: 01/25/18 Type of Exam(s): US echo doppler complete DATE OF PROCEDURE January 25, [address] Francheska Graves This is a two-dimensional echo with spectral Doppler, color-flow and M-mode. It was obtained in a patient with shortness of air. This is a technically very difficult study with poor images. Left atrium is dilated. Left ventricular end-diastolic dimension is normal. Left ventricular wall thickness is normal. LV systolic function is normal with ejection fraction of about 60%. Right atrium is dilated. Right ventricle is normal. Aortic root dimension is normal. Mitral valve annulus is calcified. Mitral valve leaflets are normal with mild mitral regurgitation. Aortic valve was not visualized well. However, Doppler studies indicate increased velocities across the aortic valve with peak velocity of 2.12 m/sec with peak gradient of 18 and mean gradient of 9. Aortic valve area is calculated at 0.85 cm2. However, this may be an overestimation of aortic stenosis. Mild aortic insufficiency is present. Tricuspid valve shows moderate tricuspid regurgitation with [id number] pulmonary hypertension with estimated pulmonary artery systolic pressure of 65. Pulmonary valve shows no pulmonary insufficiency. There is no pericardial effusion. IMPRESSION 1. Normal LV systolic function with ejection fraction of 60%. 2. Technically very difficult study. 3. Biatrial dilation. 4. Mitral annulus calcification with mild mitral regurgitation. 5. Questionable aortic stenosis with valve area of 0.85 cm2. However, this cannot be accurate due to quality of the echo. 6. Mild aortic insufficiency. 7. Moderate tricuspid regurgitation with bvhifteq-dp-[id number] pulmonary hypertension with estimated pulmonary artery systolic pressure of 65. Date of Exam: 01/26/18 Ordering Provider: Miladis Nazario DO Type of Exam(s): XR chest 1V Reason for Exam(s): CHF Indication: CHF PROCEDURE: XR chest 1V: Encounter: Initial Comparison: January 25, 2018 Findings: Prior pulmonary edema has improved. There is a small left effusion remaining. No pneumothorax or new infiltrate. Heart size and mediastinal contours are stable. Impression: Improving CHF. . Date of Exam: 01/29/18 Ordering Provider: Anita De La Rosa APRN Type of Exam(s): XR chest 2V Reason for Exam(s): Congestion INDICATION: Congestion PROCEDURE: CHEST 2-VIEWS UPRIGHT (PA & LAT) Encounter: Initial COMPARISON: January 26, 2018 FINDINGS: Mildly increased interstitial markings, slightly increased from the prior study. Trace left effusion. No pneumothorax. No new consolidation. Heart size and mediastinal contours are stable. Impression: Mild pulmonary edema. . History of Present Illness HPI: Wai H&P Amaris is a pleasant 67 yr old female who is known to the hospitalist service from previous admission last month. In December 2017 Patient was admitted with atrial flutter. At that time she was placed on Eliquis. She has been seen in the outpatient setting by both Dr. Izaguirre and Dr Guevara. Patient was scheduled for an outpatient cardioversion today by Dr. Guevara however, upon arrival, she was found to be in normal sinus rhythm. Staff noted her to be having increased dyspnea and patient was directed to see her primary care provider. She then presented to see Dr. Thayer at his office. She was found to be dyspneic with room air saturations dipping into the 80s. Patient was instructed to present to the emergency room for acute evaluation. Upon arrival to the emergency room acute evaluation was performed. Patient was to Breathing 28-40 times a minute and on arrival oxygen saturations were 84%. She had a temperature of 100.1. CBC revealed mild leukocytosis with a white count of 12.3. Sodium is elevated at 151, and potassium slightly low at 3.2. Troponin was negative at 0.037, proBNP 5040. Lead EKG revealed regular sinus rhythm. Chest x-ray had been done earlier today in the outpatient setting by Dr. Thayer, which showed mild congestive failure, otherwise unremarkable. Given her severe dyspnea with tachpnea, exertional hypoxia. The hospitalist services were contacted and septa patient for admission for further evaluation and treatment. Patient reports since hospitalization in December. She has had several medication changes. She reports that she initially was taken off of flecainide 50 milligrams, however, then placed back on it by Dr. Guevara at 150 milligrams a day. She is also started on Eliquis for anticoagulation given findings of atrial fibrillation. She reports that she has had ongoing dyspnea for the past 3 weeks, however, worse over the last week to the point that she is unable to ambulate even short distances without severe dyspnea. She notes over the last 24 hours. She is having significant conversational dyspnea to the point she is unable to speak 4-5 words at a time without needing to breathe. She does note last night she had a mild fever, however, denies any productive coughing. He does chronically use BiPAP with oxygen at nighttime only. She has been seen in the past by Dr. Hurley, given her underlying lung disease of asthma. She reports that she has been told she possibly had an underlying COPD. She was a smoker for 6 weeks. However, then quit approximately 40 years ago. She is noted to be at 8.5 pounds since 12/13/17. We did discuss advanced directives and she does wish to be a full code Objective Vital signs: Temperature 98.5 F 01/30/18 11:59 Pulse Rate 58 L 01/30/18 11:59 Respiratory Rate 16 01/30/18 11:59 Blood Pressure 121/58 01/30/18 11:59 Pulse Oximetry 93 01/30/18 11:59 Rhythm: Normal Sinus Rhythm Height/Weight/BMI: Weight 123 kg - Constitutional Present: no acute distress, obese - Routine HEENT Exam Head: Present: normocephalic, atraumatic Eye: Present: EOMI, conjunctivae pink ENT: Present: mucous membranes moist, nares patent - Routine Respiratory Exam Present: decreased breath sounds, distant breath sounds, diminished air movement. Absent: accessory muscle use - Routine Cardiovascular Exam Present: RRR, murmur - Routine Abdominal Exam Present: soft, normoactive bowel sounds, non distended, non tender. Absent: tenderness - Routine Extremities Exam Present: no edema. Absent: cyanosis, clubbing - Routine Musculoskeletal Exam Musculoskeletal: Present: no clubbing or cyanosis, normal strength, moving extremities well - Routine Skin Exam Present: intact, dry, warm. Absent: erythema - Routine Neurological Exam Present: alert, oriented X3, CN II-XII intact - Routine Psychiatric Exam Present: normal affect, normal thought process Hospital Course Hospital course: Patient was admitted due to dyspnea on exertion and acute hypoxic respiratory failure. She was evaluated by cardiology and pulmonology. She underwent right and left heart cath during admission. Her medications were adjusted, she was diursed and recommended she continue on her Bipap with sleep. She had an exercise oximetry prior to discharge and did not require oxygen. She was discharged home in stable condition with all medication prescriptions needed and instructions for follow up. Please see below for more daily details of hospital course. Hospital Course: 01/25/18 Initially patient was admitted as observation, however, given significant hypoxia with minimal exertion change patient to inpatient status and admit her to the hospitalist services under the care of Dr. Graves Cardiology consultation placed to Dr Izaguirre as he has followed in the outpt setting. She is scheduled for stress test in the beginning of February. It is recommended by pulmonology that if patient does obtain a stress test that she have Right and Left sided procedure to evaluate pulmonary pressure. Patient placed to Dr. Hurley. Did speak with him on the phone. He will see patient on Sunday01/27/18. Given mild fever will obtain a viral respiratory panel to rule out infectious etiology. Patient on scheduled breathing treatments including DuoNeb 4 times a day and Pulmicort twice a day Will hold off on starting IV fluids at this point, will discuss further with attending. Patient may be having some fluid overload given increased weight and questionable edema on chest x-ray. Patient does routinely takes Lasix 80 mg- Sunday, Sunday and Sunday for diuresis. Will monitor Accu-Cheks, patient did have mild hypoglycemia into the 50s while in the emergency room. Will discuss insulin regimen Since she is in Sinus Rhythm Cardiology recommends stopping Eliquis at this time in case patient needs cardiac catheter in the near future Cardiology also requests obtaining echocardiogram, serial troponins, and giving a one-time dose of Lasix 80 milligrams IV Will replace potassium orally- 40 MEQ now and scheduled TID Urinalysis reviewed does reveal leukocyte esterase with WBCs. However, there is external squamous epithelial Cells. She is asymptomatic, will wait and review Urine culture. Place schneider cath to monitor urinary output Patient does wish to be a full code and this order is written Will discuss further orders and plan of care with attending, Dr. Graves At time of discharge medical care will return to primary care provider, Dr Thayer 01/26/18 Exact etiology of hypoxia is unclear as it could be multiply factorial - asthma/ copd, volume overload, OHS Cardiology consultation placed to Dr Izaguirre as he has followed in the outpt setting. She is scheduled for stress test in the beginning of February. It is recommended by pulmonology that if patient does obtain a stress test that she have Right and Left sided procedure to evaluate pulmonary pressure. Patient placed to Dr. Hurley. Did speak with him on the phone. He will see patient on Sunday01/27/18. RVP negative Patient on scheduled breathing treatments including DuoNeb 4 times a day and Pulmicort twice a day s/p lasix yesterday, now on home dose Continue steroids. blood sugars increased - takes tresiba 130 units QHS, regular insulin around 100 units daily divided TID, and metformin at home. On latus 90 QHS, ISS, and metformin here. Will hold metformin in case of need for contrast. Add mealtime insulin at 15 units TID. Get exercise oximetry today. 01/27/18 Cardio consulted - to have stress in early february. Hold Eliquis. Gave another 80mg IV lasix dose last night and this morning. Has 1550 out total so far. polm to see today. serial troponins negative RCAT, oxygen Continue prednisone blood sugars increased - takes tresiba 130 units QHS, regular insulin around 100 units daily divided TID, and metformin at home. On latus 90 QHS, novolog 15 TID WM, and ISS here. Will hold metformin in case of need for contrast and/or in light of increased creatinine and aggressive diuresis. Creatinine to 1.3 today - monitor closely with diuresis. Held losartan, metformin, and home potassium supplement. Recheck BMP at 1300 to monitor creatinine and replace K if needed. 01/28/18 Exact etiology of hypoxia is unclear as it could be multifactorial - asthma/copd , volume overload Cardio consulted -echo result is pending. Holding chlorthalidone and losartan. Metoprolol discontinued and Coreg initiated. Continue flecainide. Continues on 2 L per 24 hour fluid restriction Pulmonology has seen patient. Have ordered repeat chest x-ray in a.m. Continuing A/A, Pulmicort and prednisone. She will likely need portable oxygen for home given her significant shortness of breath with any exertion. Recent exercise oximetry - required 1-2L w/ exertion. DC SSI and adjust scheduled insulin as needed. Continue levemir 65 u q hs. She has needed SSI the past 2 evenings at hs. Increase her AC supper novolog from 10 to 15U. Continue 10 U AC breakfast and lunch. Creatinine improved overnight 1.4-->1.2. Metformin, chlorthalidone, home potassium supplement, and losartan on hold due to previous increase in creatinine. Recheck BMP in a.m. 01/29/18 Echo results showing moderate tricuspid regurg with moderate to severe pulmonary hypertension. Patient will be undergoing right heart catheter later today. Chest x-ray this morning shows mild pulmonary edema. Weight is up almost 4 kg since admission. Continues on fluid restriction. Usually takes Lasix 80 mg Sunday. Currently on normal saline at 75 mL per hour 1 L in prep for heart cath. She continues on prednisone, Pulmicort and nebulizer treatments. White count improving 13.7-->11.3. May be able to DC prednisone. Will talk to pulm. Sputum Gram stain shows moderate gram-positive rods and cocci, few gram- negative rods, few neutrophils. Culture is pending. Urine culture= mixed bacterial lulú. She will likely need portable oxygen for home given her significant shortness of breath with any exertion. Exercise oximetry performed 01/26 - required 1-2L w / exertion. She will need documentation of exercise oximetry within 48 hours dismissal to qualify her for home portable oxygen. Currently on 2 L with saturations of 100%. Will wean O2 as able. Decrease Levemir 65 units to 55 units given her low fasting blood sugar this morning. Creatinine continues to improve. 1.4-->1.2-->1.1. Metformin, chlorthalidone, home potassium supplement, and losartan on hold due to previous increase in creatinine. Chris Del Angel. Wedge pressure 30 cm, no evidence of . PAH. Diuresis being resumed. Discussed with Dr. Izaguirre and Dr. Hurley. Time spent with patient: discharge greater than 30 minutes Resuscitation Status: Full Code Discharge Plan - Discharge Disposition Discharge Date: 01/30/18 Disposition: Discharged Home, Self-Care *Condition: Stable Reason For Visit (Visit label in EMR): severe hypoxia with exertion - Discharge Medications *Discharge Medications: New Carvedilol [Coreg] 12.5 mg PO BIDWM tab Furosemide [Lasix 80 mg Tab] 80 mg PO DAILY tab Levothyroxine Sodium [Synthroid] 100 mcg PO Hyman@0630 #30 tab Levothyroxine Sodium [Synthroid] 200 mcg PO MoTuWeThFrSa@0630 tab Continue Allopurinol [Zyloprim] 300 mg PO DAILY FLUoxetine [Prozac] 20 mg PO DAILY Ropinirole [Requip] 2 mg PO DAILY Pravastatin [Pravachol] 40 mg PO DAILY Amlodipine [Norvasc] 10 mg PO DAILY Terazosin HCl 10 mg PO HS Apixaban [Eliquis] 5 mg PO BID #60 tab Albuterol Sulfate [Proair Hfa] 1 puff INH Q4H PRN PRN Reason: Shortness Of Air/Wheezing Insulin Regular, Human [NovoLIN R] 90 - 110 unit SQ TIDWM Fluticasone Nasal [place] [Flonase] 2 spray INTRANASAL BID Latanoprostene Bunod [Vyzulta] 1 drop EACH EYE HS Potassium Chloride [K-DUR 20 mEq Tablet] 40 meq PO BIDWM #30 tab EPINEPHrine Pen [Epipen] 0.3 mg IM O PRN PRN Reason: Prn Orders Montelukast [Singulair] 10 mg PO DAILY Cozaar (losartan) 100 mg tablet 100 mg PO DAILY Asmanex Twisthaler (Mometasone 110 mcg (30 doses) )breath activated powder inhaler 2 puff INH BID Spiriva Respimat (tiotropium bromide) 2.5 mcg/actuation, inhalation 2 puff INH DAILY Glucophage XR (metformin ER) 500 mg tablet, 24 hr 500 mg PO TID tab flecainide 150 mg tablet 150 mg PO DAILY 30 Days #60 Combigan (brimonidine 0.2 %-timolol 0.5 %) eye drops 1 drop LEFT EYE Q12H Tresiba FlexTouch U-200 (insulin degludec) 200 unit/mL (3 mL) PEN 90 unit SQ HS ml Discontinued Levothyroxine Sodium 200 mcg PO DAILY Chlorthalidone 25 mg PO DAILY Furosemide [Lasix 80 mg Tab] 80 mg PO MOWEFR Lopressor (metoprolol tartrate) 50 mg tablet 50 mg PO BID 30 Days #60 tab Mobic (Meloxicam) 7.5 mg tablet 15 mg PO QAM tab - Discharge Packet/Instructions *Diet: Resume heart healthy diet *Activity: Limit activity for 2 days. No lifting more than 10 pounds, no pushing or pulling for [address], operate machinery or drink alcohol for 2 days. Expect a phone call from Cardiac Rehab to schedule an appointment for you. If you have any questions, please contact Cardiac Rehab at: [phone]. New prescriptions: DO NOT STOP THESE MEDICATIONS WITHOUT AN ORDER FROM DR. IZAGUIRRE *Pain Management/Treatment: Over the counter pain medication if needed. Continue medications as instructed *Wound Care: Remove dressing after 24 hours. Keep site clean and dry. No tub baths or swimming for 1 week. You may shower. Additional Instructions: BMP 4/4 to be obtained by PCP *Expected Signs/Symptoms: Bruising and tenderness at the site. *Notify Physician if: Site is bleeding, abnormal drainage, increased pain or fever of 101.5 or more. *During Business Hours Contact: Call Dr. Izaguirre's office at [phone]. PCP *After Business Hours Contact: Please call [phone] and have the dump operator page the physician. Or dermatological surgeon physician for primary care. If unable to reach provider, please contact ED *Pending Lab/Results: Follow up w/Provider - Referrals/Follow Up *Referrals/Follow Up: Kenny Izaguirre MD [Physician] - 2 Weeks Ty Hurley MD [Physician] - 2 Weeks Jose Thayer DO [Family Provider] - 1 Week (Needs BMP at follow up appointment) - Patient Handouts Patient Handouts: [facility] Heart Cath, Hypoxia (GEN) - Dismissal Complete Discharge Instructions are:: Complete Physician Narrative - Narrative Attestation Narrative: Date: 01/30/18 Time: 0165
[2018-01-30 16:58] VITALS: PULSE 69
[2018-01-30] MEDS ORDERED: INHALER ASSIST DEVICE (Optichamber) MC ONE (17:15)
[2018-02-03] MEDS ORDERED: LEVOTHYROXINE 100 MCG TABLET PO SCH (06:30)
== END 2018-01-30 17:55 | disposition home or self-care (01) | DRG 189 ==
LOC: ED 12:19 → MED 12:19 → SUATTDRO 17:03 → SRG 01-29 15:22
PROVIDERS: ADMIT Internal Medicine; ATTEND Pediatrics